=== PATIENT | male | born 1955 | race Caucasian/White ===

== ENCOUNTER 2019-11-22 14:15 | Emergency (ER) | payer OTHER, SELFPAY ==
[2019-11-22 14:24] VITALS: BP 181/80; PULSE 89; RESP 18; TEMP 36.8; O2SAT 95; BMI 32.8
--- NOTE | 2019-11-22 14:31 | CTR_ITS ---
PROCEDURE INFORMATION: Exam: CT Head Without Contrast Exam date and time: 11/22/2019 2:32 PM Age: 64 years old Clinical indication: Altered mental status/memory loss; Patient HX: States blacked out yesterday cannot remember it. - memory loss; Additional info: blacking out spells TECHNIQUE: Imaging protocol: Computed tomography of the head without contrast. Radiation optimization: All CT scans at this facility use at least one of these dose optimization techniques: automated exposure control; mA and/or kV adjustment per patient size (includes targeted exams where dose is matched to clinical indication); or iterative reconstruction. COMPARISON: No relevant prior studies available. RADIATION DOSE METRICS: Total DLP: 1163.95 mGy-cm FINDINGS: Brain: There is mild periventricular white matter lucency consistent with chronic microvascular disease. No acute infarct. No hemorrhage or extra-axial collection. Ventricles: There is no hydrocephalus. Bones/joints: Unremarkable. No acute fracture. Sinuses: Visualized sinuses are unremarkable. No fluid levels. Mastoid air cells: Visualized mastoid air cells are well aerated. Soft tissues: Unremarkable. CT/CT head wo con* [id number] IMPRESSION: 1. There is mild chronic microvascular disease. 2. No acute intracranial lesion or injury. Radiation Dose CTDIVOL = (mGy): DLP = 1163.95 (mGy-cm)
--- NOTE | 2019-11-22 14:31 | XRR_ITS ---
PROCEDURE INFORMATION: Exam: XR Chest, 1 View Exam date and time: 11/22/2019 3:30 PM Age: 64 years old Clinical indication: Cough; Additional info: Cough/congestion TECHNIQUE: Imaging protocol: XR of the chest Views: 1 view. COMPARISON: CR Ribs LEFT w PA Chest [id number] 04/04/2018 9:20 AM FINDINGS: Lungs: Unremarkable. No consolidation. Pleural space: Unremarkable. No pleural effusion. No pneumothorax. Heart/Mediastinum: Borderline to mild cardiomegaly. Vasculature: Calcification of the thoracic aorta and/or great vessels consistent with atherosclerotic vessel disease. Bones/joints: Moderate thoracic spondylosis. XR/XR chest 1V portable [id number] IMPRESSION: Borderline to mild cardiomegaly.
[2019-11-22 15:30] LABS: Basophils % 0.6 %; Eosinophils # 0.2 10^3/uL (0.0-0.8); Eosinophils % 4.5 %; Hematocrit 41.3 % (42.0-52.0); Hemoglobin 12.9 g/dL (11.7-16.6); Mean Corpuscular HGB Conc 31.2 g/dL (30.0-36.0); Mean Corpuscular Volume 83.3 fL (80-94); Mean Platelet Volume 10.1 fL (7.4-10.4); Monocytes # 0.5 10^3/uL (0.2-0.9); Monocytes % 10.2 %; Neutrophils # 3.2 10^3/uL (1.8-7.7); Neutrophils % 64.5 %; Nucleated Red Blood Cells % 0 %; Platelet Count 131 10^3/cmm (130-400); Red Blood Count 4.96 10^6/uL (4.1-5.3); Red Cell Distribution Width 14.4 % (12.1-15.1); White Blood Count 4.9 10^3/uL (4.0-10.0)
[2019-11-22 16:03] LABS: Alanine Aminotransferase 46 U/L (0-41); Albumin Level 4.5 g/dL (3.5-5.2); Alkaline Phosphatase 105 IU/L (40-130); Anion Gap 15.7 (5-19); Aspartate Amino Transferase 34 U/L (0-40); Blood Urea Nitrogen 10 mg/dL (8-23); Calcium 9.9 mg/dL (8.5-10.5); Carbon Dioxide 28 mmol/L (22-29); Chloride 101 mmol/L (98-107); Globulin 3.4 g/dL (1.3-4.6); Glomerular Filtration Rate 84.7 mL/min (90-130); Glucose 189 mg/dL (65-115); Osmolality Calculated 291 mOsm/kg (285-295); Potassium 4.7 mmol/L (3.5-5.1); Sodium 140 mmol/L (136-145); Total Bilirubin 0.4 mg/dL (0.15-1.2); Total Protein 7.9 g/dL (6.6-8.7)
--- NOTE | 2019-11-22 16:05 | W.ED.GENADLT ---
HPI - General Adult General: Chief complaint: General Medical Stated complaint: black out/ memory loss /agitated Time Seen by Provider: 11/22/19 15:36 History of Present Illness: HPI narrative: 64-year-old male comes in complaining of of what he describes as a blackout episode yesterday states he was unaware of anything going on for about 9 in the morning till 10 at night he suddenly became more of a conversation he was having on his . Denies drinking any alcohol at that time. He has had some memory issues related to viral hepatitis and cirrhosis that he has he has had some epigastric discomfort denies any vomiting or diarrhea no nausea no fever he has had increased urination but denies any polydipsia. He went through a course of Harvoni treatment for his hepatitis C and completed it. Denies any headache any difficulty speech swallowing or vision. Onset (ago): day(s) Associated symptoms: Deny chest pain, dyspnea, malaise, nausea, rash or vomiting Review of Systems Const: Denies: fever(s), chills, body aches, change in appetite, fatigue or malaise ENMT: Denies: throat pain, ear or mastoid pain, nasal discharge or nasal congestion Card: Denies: chest pain, edema, dyspnea on exertion or orthopnea Resp: Denies: dyspnea, productive cough or non-productive cough GI: Denies: abdominal pain, nausea, vomiting, hematemesis, coffee ground emesis, diarrhea, constipation, bloating, hematochezia or melena : Denies: flank pain, dysuria, urinary frequency or urinary urgency Skin/Breast: Denies: rash or pruritus PFSH ED PFSH: Social History Smoking and tobacco status: former smoker Physical Exam Const: COMMON NORMALS: no acute distress GENERAL APPEARANCE: cooperative and comfortable ORIENTATION/CONSCIOUSNESS: Yes awake, Yes oriented to person, Yes oriented to place and Yes oriented to time HENMT: COMMON NORMALS: normocephalic, atraumatic, hearing grossly normal bilaterally, external ears normal, EAC's normal, TM's normal bilaterally, Normal nasal mucous membranes and turbinates present, moist oral mucous membranes and oropharynx normal HEAD & SCALP: normocephalic and atraumatic NOSE: Normal nasal mucous membranes and turbinates present EXTERNAL EAR: Yes external ears normal EXTERNAL AUDITORY CANAL: EAC's normal TYMPANIC MEMBRANE: TM's normal bilaterally Eye: COMMON NORMALS: Equal, round and reactive pupils present, EOMs intact bilaterally, conjunctivae normal and no scleral icterus CONJUNCTIVA: Yes conjunctivae normal PUPIL: Yes Equal, round and reactive pupils present Neck/C-Spine: COMMON NORMALS: full ROM, no lymphadenopathy, supple and no JVD Lymph: LYMPHATIC: no lymphadenopathy noted and no lymphedema noted Resp: COMMON NORMALS: normal respiratory effort, No retractions, No use of accessory muscles and clear to auscultation bilaterally AUSCULTATION: clear to auscultation bilaterally Cardio: COMMON NORMALS: no JVD, regular rate, regular rhythm and No murmurs present (Cardio) RATE: regular rate RHYTHM: regular rhythm GI: COMMON NORMALS: Soft to palpation and No hepatosplenomegaly present AUSCULTATION: Yes normoactive bowel sounds PALPATION: Yes Soft to palpation, No Tenderness to palpation present (GI), No Guarding due to palpation present (GI) and Yes No hepatosplenomegaly present Extremity: COMMON NORMALS: normal to inspection, capillary refill normal, no clubbing, cyanosis or edema, no calf tenderness and no pedal edema Neuro: SENSORIUM/ORIENTATION: Yes oriented to person, Yes oriented to place and Yes oriented to time Skin: COMMON NORMALS: no rashes or lesions noted GENERAL SKIN EXAM: no rashes or lesions noted Course Vital Signs: Vital signs: Vital Signs Temperature 98.3 F 11/22/19 14:24 Pulse Rate 85 11/22/19 17:56 Respiratory Rate 18 11/22/19 17:56 Blood Pressure 151/101 11/22/19 17:56 Pulse Oximetry 93 11/22/19 17:56 MDM - General Adult MDM Narrative: Medical decision making narrative: Patient describes state which he function normally but he just cannot recall anything that happened. Organ to go ahead and discharge him home his head CT was negative remainder labs unremarkable set him up for outpatient referral to neurology. Lab Data: Labs: Lab Results 11/22/19 11/22/19 11/22/19 Range/Units :20 15:20 15:20 WBC 4.9 (4.0-10.0) 10^3/ uL RBC 4.96 (4.1-5.3) 10^6/u L Hgb 12.9 (11.7-16.6) g/dL Hct 41.3 L (42.0-52.0) % MCV 83.3 (80-94) fL MCH 26.0 L (28.0-34.0) pg MCHC 31.2 (30.0-36.0) g/dL RDW 14.4 (12.1-15.1) % Plt Count 131 (130-400) 10^3/c mm MPV 10.1 (7.4-10.4) fL Neut % (Auto) 64.5 % Lymph % (Auto) 20.0 % Erie % (Auto) 10.2 % Eos % (Auto) 4.5 % Baso % (Auto) 0.6 % Neut # (Auto) 3.2 (1.8-7.7) 10^3/u L Lymph # (Auto) 1.0 (0.8-4.8) 10^3/u L Erie # (Auto) 0.5 (0.2-0.9) 10^3/u L Eos # (Auto) 0.2 (0.0-0.8) 10^3/u L Baso # (Auto) 0.0 (0.0-0.1) 10^3/u L Nucleated RBC % (a uto) 0 % Nucleated RBCs # 0.0 /100WBC PT 13.20 (10.5-13.3) SECO NDS INR 0.98 (0.8-1.2) Sodium 140 (136-145) mmol/L Potassium 4.7 (3.5-5.1) mmol/L Chloride 101 (98-107) mmol/L Carbon Dioxide 28 (22-29) mmol/L Anion Gap 15.7 (5-19) BUN 10 (8-23) mg/dL Creatinine 0.9 (0.7-1.2) mg/dL GFR Calculation 84.7 L (90-130) mL/min Glucose 189 H (65-115) mg/dL Calculated Osmolal ity 291 (285-295) mOsm/k g Calcium 9.9 (8.5-10.5) mg/dL Total Bilirubin 0.4 (0.15-1.2) mg/dL AST 34 (0-40) U/L ALT 46 H (0-41) U/L Alkaline Phosphata se 105 (40-130) IU/L Ammonia (16-60) umol/L Total Protein 7.9 (6.6-8.7) g/dL Albumin 4.5 (3.5-5.2) g/dL Globulin 3.4 (1.3-4.6) g/dL 05/15/20 Range/Units 17:05 WBC (4.0-10.0) 10^3/ uL RBC (4.1-5.3) 10^6/u L Hgb (11.7-16.6) g/dL Hct (42.0-52.0) % MCV (80-94) fL MCH (28.0-34.0) pg MCHC (30.0-36.0) g/dL RDW (12.1-15.1) % Plt Count (130-400) 10^3/c mm MPV (7.4-10.4) fL Neut % (Auto) % Lymph % (Auto) % Erie % (Auto) % Eos % (Auto) % Baso % (Auto) % Neut # (Auto) (1.8-7.7) 10^3/u L Lymph # (Auto) (0.8-4.8) 10^3/u L Erie # (Auto) (0.2-0.9) 10^3/u L Eos # (Auto) (0.0-0.8) 10^3/u L Baso # (Auto) (0.0-0.1) 10^3/u L Nucleated RBC % (a uto) % Nucleated RBCs # /100WBC PT (10.5-13.3) SECO NDS INR (0.8-1.2) Sodium (136-145) mmol/L Potassium (3.5-5.1) mmol/L Chloride (98-107) mmol/L Carbon Dioxide (22-29) mmol/L Anion Gap (5-19) BUN (8-23) mg/dL Creatinine (0.7-1.2) mg/dL GFR Calculation (90-130) mL/min Glucose (65-115) mg/dL Calculated Osmolal ity (285-295) mOsm/k g Calcium (8.5-10.5) mg/dL Total Bilirubin (0.15-1.2) mg/dL AST (0-40) U/L ALT (0-41) U/L Alkaline Phosphata se (40-130) IU/L Ammonia 33 (16-60) umol/L Total Protein (6.6-8.7) g/dL Albumin (3.5-5.2) g/dL Globulin (1.3-4.6) g/dL Discharge Plan Discharge Patient Disposition: Home, Self-Care Clinical Impression: Dissociative fugue Condition: Stable Referrals: Víctor Coburn [Primary Care Provider] - Activity Restrictions/Additional Instructions: Case management will call for referral to neurology Discharge Date/Time: 11/22/19 17:56 Coding Level of Care Code 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
--- NOTE | 2019-11-22 16:10 | CTR_ITS ---
PROCEDURE INFORMATION: Exam: CT Abdomen And Pelvis With Contrast Exam date and time: 11/22/2019 4:45 PM Age: 64 years old Clinical indication: Abdominal pain; Epigastric; Patient HX: C/O upper abd pain TECHNIQUE: Imaging protocol: Computed tomography of the abdomen and pelvis with intravenous contrast. Radiation optimization: All CT scans at this facility use at least one of these dose optimization techniques: automated exposure control; mA and/or kV adjustment per patient size (includes targeted exams where dose is matched to clinical indication); or iterative reconstruction. Contrast material: OMNI 300; Contrast volume: 95 ml; Contrast route: 22G; COMPARISON: CR Hip 2-3v RIGHT wwo Pelv* [id number] 10/29/2014 4:20 PM RADIATION DOSE METRICS: Total DLP: 947.73 mGy-cm FINDINGS: Liver: Nodular liver suggesting cirrhosis. Gallbladder and bile ducts: Enlarged greater than or equal to 5.0 cm transverse diameter gallbladder consistent with gallbladder hydrops. Pancreas: Normal. No ductal dilation. Spleen: Cirrhosis with portal hypertension and moderate to large splenomegaly. One or more accessory splenules. 17.0 x 13.7 cm moderate to large splenomegaly. Adrenals: Normal. No mass. Kidneys and ureters: Normal. No hydronephrosis. Stomach and bowel: Unremarkable. No obstruction. No mucosal thickening. Appendix: Mildly enlarged 9 mm appendix without obvious inflammation. Intraperitoneal space: Unremarkable. No free air. No significant fluid collection. Vasculature: Severe calcified coronary artery disease. 17 mm portal vein suggesting possible portal hypertension. One or more calcified pelvic phleboliths. Lymph nodes: Unremarkable. No enlarged lymph nodes. Bladder: Unremarkable as visualized. Reproductive: Unremarkable as visualized. Bones/joints: Moderate multilevel spine degenerative changes including degenerative disc disease, spondylosis and facet degenerative changes. Soft tissues: Unremarkable. Other findings: Examination is limited by artifact from one or both arms by the patient's side. IMPRESSION: 1. Severe calcified coronary artery disease. 2. Enlarged greater than or equal to 5.0 cm transverse diameter gallbladder consistent with gallbladder hydrops. 3. Cirrhosis with portal hypertension and moderate to large splenomegaly. CT/CT abdomen pelvis w con* [id number] Impression. 4. Mildly enlarged 9 mm appendix without obvious inflammation. Radiation Dose CTDIVOL = (mGy): DLP = 947.73 (mGy-cm)
[2019-11-22] MEDS: iohexol 300 mg/mL 100 mL Btl IV (16:58)
[2019-11-22 17:09] LABS: INR 0.98 (0.8-1.2)
[2019-11-22 17:32] LABS: Ammonia 33 umol/L (16-60)
[2019-11-22 17:56] VITALS: BP 151/101; PULSE 85; RESP 18; O2SAT 93
--- NOTE | 2019-11-25 10:26 | DCPLANNER ---
manager exchange had message to schedule a follow up appointment for patient with neurology. manager exchange called the office of Dr. Ramirez, spoke with Kalee, a follow up appointment was scheduled for Monday, December 09, 2019 at 11:[address] Ramirez. Patient has [facility] insurance, adult protective caseworker called [facility] with [facility], and informed her that patient was seen in the ED and of the scheduled appointment. manager exchange faxed patients information to the [facility]. manager exchange called patient at [phone], there is was no answer, and unable to leave a voicemail for patient. manager exchange also called [phone] and left a voicemail for patient to return case finishing machine adjuster phone call.
--- NOTE | 2019-11-26 09:05 | DCPLANNER ---
Patient returned keycase assembler phone call, child welfare caseworker informed patient of the scheduled appointment.
--- NOTE | 2020-01-01 10:08 | DCPLANNER ---
e commerce manager called the office of Dr. Ramirez to confirm patient attended appointment. e commerce manager was told that patient was seeing provider in [place].
== END 2019-11-22 17:56 | disposition home or self-care (01) ==
PROVIDERS: Physician Assistant; Emergency Provider Family Medicine; PCP Internal Medicine
DX: F44.1 Dissociative fugue (principal); Z87.891 Personal history of nicotine dependence
CPT/HCPCS: 12345; 36415; 70450; 71045; 74177; 80053; 82140; 85025; 85610; 99281; 99283; Q9967

== ENCOUNTER → 2020-01-03 08:49 | Outpatient (BNVA) | payer OTHER, SELFPAY | PROVIDERS: PCP Internal Medicine; Referring Provider Family Medicine; Visit Provider Anesthesiology Pain Medicine | DX: M47.816 Spondylosis without myelopathy or radiculopathy, lumbar region (principal); M54.42 Lumbago with sciatica, left side; M54.16 Radiculopathy, lumbar region; M54.9 Dorsalgia, unspecified; M62.830 Muscle spasm of back; F17.220 Nicotine dependence, chewing tobacco, uncomplicated; Z79.891 Long term (current) use of opiate analgesic | CPT/HCPCS: 99203; 99204 ==

== ENCOUNTER → 2020-01-31 08:40 | Outpatient (BNVA) | payer OTHER, SELFPAY | PROVIDERS: PCP Family Medicine; Visit Provider Anesthesiology Pain Medicine | DX: M54.16 Radiculopathy, lumbar region (principal); M47.816 Spondylosis without myelopathy or radiculopathy, lumbar region; M54.9 Dorsalgia, unspecified; M62.830 Muscle spasm of back; F17.210 Nicotine dependence, cigarettes, uncomplicated | CPT/HCPCS: 99213 ==

== ENCOUNTER → 2020-02-17 10:33 | Outpatient (BNVA) | payer OTHER, SELFPAY | PROVIDERS: PCP Family Medicine; Visit Provider Anesthesiology Pain Medicine | DX: M47.816 Spondylosis without myelopathy or radiculopathy, lumbar region (principal); M54.16 Radiculopathy, lumbar region; M54.9 Dorsalgia, unspecified; M62.830 Muscle spasm of back; F17.220 Nicotine dependence, chewing tobacco, uncomplicated | CPT/HCPCS: 99213; 99214 ==

== ENCOUNTER → 2020-04-08 12:37 | Outpatient (BNVA) | payer OTHER, SELFPAY | PROVIDERS: PCP Family Medicine; Visit Provider Anesthesiology Pain Medicine | DX: M54.16 Radiculopathy, lumbar region (principal); M47.816 Spondylosis without myelopathy or radiculopathy, lumbar region; M54.9 Dorsalgia, unspecified | CPT/HCPCS: 64493; 64494; 64495; J3490 ==

== ENCOUNTER → 2020-04-23 10:43 | Outpatient (BNVA) | payer OTHER, SELFPAY | PROVIDERS: PCP Family Medicine; Visit Provider Anesthesiology Pain Medicine | DX: M47.816 Spondylosis without myelopathy or radiculopathy, lumbar region (principal); M54.16 Radiculopathy, lumbar region; M54.9 Dorsalgia, unspecified; M62.830 Muscle spasm of back; F17.220 Nicotine dependence, chewing tobacco, uncomplicated | CPT/HCPCS: 99213 ==

== ENCOUNTER → 2020-04-29 12:52 | Outpatient (BNVA) | payer OTHER, SELFPAY | PROVIDERS: PCP Family Medicine; Visit Provider Anesthesiology Pain Medicine | DX: M54.16 Radiculopathy, lumbar region (principal); M54.9 Dorsalgia, unspecified; F17.210 Nicotine dependence, cigarettes, uncomplicated | CPT/HCPCS: 64483; 64484; J1030; J3490 ==

== ENCOUNTER → 2020-05-26 09:50 | Outpatient (BNVA) | payer OTHER, SELFPAY | PROVIDERS: PCP Family Medicine; Visit Provider Anesthesiology Pain Medicine | DX: M54.9 Dorsalgia, unspecified (principal); M47.816 Spondylosis without myelopathy or radiculopathy, lumbar region; M54.16 Radiculopathy, lumbar region; M62.830 Muscle spasm of back; F17.220 Nicotine dependence, chewing tobacco, uncomplicated | CPT/HCPCS: 99213 ==

== ENCOUNTER → 2020-06-01 12:02 | Outpatient (BNVA) | payer OTHER, SELFPAY | PROVIDERS: PCP Family Medicine; Visit Provider Anesthesiology Pain Medicine | DX: M54.16 Radiculopathy, lumbar region (principal); M54.9 Dorsalgia, unspecified; F17.220 Nicotine dependence, chewing tobacco, uncomplicated | CPT/HCPCS: 64483; 64484; J1100; J3490 ==

== ENCOUNTER → 2020-06-16 10:37 | Outpatient (BNVA) | payer OTHER, SELFPAY | PROVIDERS: PCP Family Medicine; Visit Provider Anesthesiology Pain Medicine | DX: M54.9 Dorsalgia, unspecified (principal); M47.816 Spondylosis without myelopathy or radiculopathy, lumbar region; M54.16 Radiculopathy, lumbar region; M62.830 Muscle spasm of back; F17.200 Nicotine dependence, unspecified, uncomplicated | CPT/HCPCS: 99213 ==

== ENCOUNTER → 2020-06-29 13:53 | Outpatient (BNVA) | payer OTHER, SELFPAY | PROVIDERS: PCP Family Medicine; Visit Provider Anesthesiology Pain Medicine | DX: M47.816 Spondylosis without myelopathy or radiculopathy, lumbar region (principal); M54.9 Dorsalgia, unspecified | CPT/HCPCS: 64635; 64636; J1030 ==

== ENCOUNTER → 2020-07-07 12:41 | Outpatient (BNVA) | payer OTHER, SELFPAY | PROVIDERS: PCP Family Medicine; Visit Provider Anesthesiology Pain Medicine | DX: M47.816 Spondylosis without myelopathy or radiculopathy, lumbar region (principal); M54.9 Dorsalgia, unspecified | CPT/HCPCS: 64635; 64636; J1030 ==

== ENCOUNTER → 2020-07-22 13:24 | Outpatient (BNVA) | payer OTHER, SELFPAY | PROVIDERS: PCP Family Medicine; Visit Provider Anesthesiology Pain Medicine | DX: M47.816 Spondylosis without myelopathy or radiculopathy, lumbar region (principal); M54.16 Radiculopathy, lumbar region; M54.9 Dorsalgia, unspecified; M62.830 Muscle spasm of back; F17.210 Nicotine dependence, cigarettes, uncomplicated | CPT/HCPCS: 99213 ==

== ENCOUNTER 2020-07-26 21:54 | Emergency (ER) | payer OTHER, MEDICARE, SELFPAY ==
[2020-07-26 22:10] VITALS: BP 172/74; PULSE 98; RESP 18; TEMP 36.7; O2SAT 97; BMI 31.3
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
[2020-07-26] MEDS: morphine 4 mg/mL SDV 1 mL IM (23:21)
[2020-07-26 23:37] VITALS: BP 158/88; PULSE 74; RESP 18; O2SAT 96
== END 2020-07-26 23:39 | disposition home or self-care (01) ==
PROVIDERS: Emergency Provider Physician Assistant; PCP Family Medicine
DX: G89.29 Other chronic pain (principal); M54.5 Low back pain; Z79.82 Long term (current) use of aspirin; Z79.4 Long term (current) use of insulin; F17.210 Nicotine dependence, cigarettes, uncomplicated
CPT/HCPCS: 12345; 72100; 96372; 99281; 99283; J2270

== ENCOUNTER 2020-09-03 17:16 | Emergency (ER) | payer OTHER, MEDICARE, SELFPAY ==
[2020-09-03 17:54] VITALS: BP 151/95; PULSE 85; RESP 16; TEMP 36.3; O2SAT 96; BMI 29.7
--- NOTE | 2020-09-03 18:06 | ED_ITS ---
HPI - Recheck/Abnormal Lab/Rx General: Chief Complaint: Recheck/Abnormal Lab/Rx Stated Complaint: high blood sugar Time Seen by Provider: 09/03/20 18:01 Source: patient Mode of arrival: ambulatory Limitations: no limitations History of Present Illness: HPI narrative: 64-year-old male who has a history of diabetes. He states that he is been sick of taking shots with has not been taking his insulin for weeks. Patient was seen at his's office and had a blood sugar in the 700s and they sent him here. He has no medical complaints. He denies any vomiting or diarrhea and states he feels fine states that he is sick of taking his shots and just has not taken any insulin Review of Systems Const: Denies: fever(s), chills, body aches or change in appetite Eyes: Denies: blurry vision or eye discomfort ENMT: Denies: throat pain or dental pain Card: Denies: chest pain Resp: Denies: dyspnea GI: Denies: abdominal pain, nausea, vomiting or diarrhea : Denies: dysuria Musc: Denies: neck pain or back pain Skin/Breast: Denies: rash Neuro: Denies: headache(s) Psych: Denies: depression Anibal/Lymph: Denies: easy bruising All/Imm: Denies: urticaria PFSH ED PFSH: Social History Smoking and tobacco status: former smoker Alcohol intake: current Alcohol intake frequency: few times a month Substance/Drug Use: current Substance/Drug use frequency: daily Substance/Drug use type: Marijuana History of recent travel: No Physical Exam Const: COMMON NORMALS: no acute distress, patient oriented x3 and healthy appearing HENMT: COMMON NORMALS: normocephalic and atraumatic HEAD & SCALP: normocephalic and atraumatic Eye: COMMON NORMALS: Equal, round and reactive pupils present and EOMs intact bilaterally PUPIL: Yes Equal, round and reactive pupils present Neck/C-Spine: COMMON NORMALS: full ROM and supple Chest: COMMONS NORMALS: normal inspection of the chest and normal palpation of entire chest wall Resp: COMMON NORMALS: normal respiratory effort, No retractions, No use of accessory muscles and clear to auscultation bilaterally AUSCULTATION: clear to auscultation bilaterally Cardio: COMMON NORMALS: regular rate, regular rhythm and No murmurs present (Cardio) RATE: regular rate RHYTHM: regular rhythm GI: COMMON NORMALS: Normal to inspection, nondistended, normoactive bowel sounds present, Soft to palpation, non-tender and no masses PALPATION: Yes Soft to palpation Extremity: COMMON NORMALS: normal to inspection and full ROM Neuro: COMMON NORMALS: patient oriented x3, moves all extremities and no focal motor deficits Psych: COMMON NORMALS: mental status grossly normal, Normal thought process present and cooperative THOUGHT PROCESS: Normal thought process present Skin: COMMON NORMALS: no rashes or lesions noted and no wounds GENERAL SKIN EXAM: no rashes or lesions noted Course Vital Signs: Vital signs: Vital Signs Temperature 97.3 F L 09/03/20 17:54 Pulse Rate 76 09/03/20 19:28 Respiratory Rate 16 09/03/20 19:28 Blood Pressure 124/78 09/03/20 19:28 Pulse Oximetry 95 09/03/20 19:28 MDM - Recheck/Abnormal Lab/Rx MDM Narrative: Medical decision making narrative: Patient presents with hyperglycemia due to noncompliance. Patient's blood sugar is improved here and he is not in DKA. Patient is stable for discharge and is to follow-up his PCP in 2 to 4 days. I informed her is very important that he takes his medicines. Lab Data: Labs: Lab Results 09/03/20 09/03/20 09/03/20 Range/Units 18:13 18:15 18:16 WBC 6.0 (4.0-10.0) 10^3/ uL RBC 5.45 H (4.1-5.3) 10^6/u L Hgb 15.3 (11.7-16.6) g/dL Hct 45.3 (42.0-52.0) % MCV 83.1 (80-94) fL MCH 28.1 (28.0-34.0) pg MCHC 33.8 (30.0-36.0) g/dL RDW 12.9 (12.1-15.1) % Plt Count 156 (130-400) 10^3/c mm MPV 11.0 H (7.4-10.4) fL Neut % (Auto) 56.6 % Lymph % (Auto) 30.4 % [place] % (Auto) 7.6 % Eos % (Auto) 3.9 % Baso % (Auto) 0.8 % Neut # (Auto) 3.38 (1.8-7.7) 10^3/u L Lymph # (Auto) 1.8 (0.8-4.8) 10^3/u L [place] # (Auto) 0.5 (0.2-0.9) 10^3/u L Eos # (Auto) 0.2 (0.0-0.8) 10^3/u L Baso # (Auto) 0.1 (0.0-0.1) 10^3/u L Nucleated RBC % (a uto) 0 % Nucleated RBCs # 0.0 /100WBC Specimen Type Arterial Sample Site Radial, left ABG pH 7.40 (7.35-7.45) ABG pCO2 39.8 (35-45) mmHg ABG pO2 79.1 L (80.0-100.0) mmH g ABG HCO3 24.4 (22-26) mmol/L ABG Base Excess -0.4 (-2.0-2.0) mmol/ L Jabier Test Pos Hematocrit 48.3 (42-52) % O2 Delivery Device Room air Supervisor Contact And Service Clerks ID Jn Sodium (136-145) mmol/L Potassium (3.5-5.1) mmol/L Chloride (98-107) mmol/L Carbon Dioxide (22-29) mmol/L Anion Gap (5-19) BUN (8-23) mg/dL Creatinine (0.7-1.2) mg/dL GFR Calculation (90-130) mL/min Glucose (65-115) mg/dL POC Glucose 463 H (70-110) mg/dL Calculated Osmolal ity (285-295) mOsm/k g Calcium (8.5-10.5) mg/dL Total Bilirubin (0.15-1.2) mg/dL AST (0-40) U/L ALT (0-41) U/L Alkaline Phosphata se (40-130) IU/L Total Protein (6.6-8.7) g/dL Albumin (3.5-5.2) g/dL Globulin (1.3-4.6) g/dL 09/03/20 Range/Units 18:16 WBC (4.0-10.0) 10^3/ uL RBC (4.1-5.3) 10^6/u L Hgb (11.7-16.6) g/dL Hct (42.0-52.0) % MCV (80-94) fL MCH (28.0-34.0) pg MCHC (30.0-36.0) g/dL RDW (12.1-15.1) % Plt Count (130-400) 10^3/c mm MPV (7.4-10.4) fL Neut % (Auto) % Lymph % (Auto) % [place] % (Auto) % Eos % (Auto) % Baso % (Auto) % Neut # (Auto) (1.8-7.7) 10^3/u L Lymph # (Auto) (0.8-4.8) 10^3/u L [place] # (Auto) (0.2-0.9) 10^3/u L Eos # (Auto) (0.0-0.8) 10^3/u L Baso # (Auto) (0.0-0.1) 10^3/u L Nucleated RBC % (a uto) % Nucleated RBCs # /100WBC Specimen Type Sample Site ABG pH (7.35-7.45) ABG pCO2 (35-45) mmHg ABG pO2 (80.0-100.0) mmH g ABG HCO3 (22-26) mmol/L ABG Base Excess (-2.0-2.0) mmol/ L Jabier Test Hematocrit (42-52) % O2 Delivery Device Supervisor Contact And Service Clerks ID Sodium 131 L (136-145) mmol/L Potassium 4.4 (3.5-5.1) mmol/L Chloride 96 L (98-107) mmol/L Carbon Dioxide 21 L (22-29) mmol/L Anion Gap 18.4 (5-19) BUN 14 (8-23) mg/dL Creatinine 0.7 (0.7-1.2) mg/dL GFR Calculation 113.2 (90-130) mL/min Glucose 439 H (65-115) mg/dL POC Glucose (70-110) mg/dL Calculated Osmolal ity 291 (285-295) mOsm/k g Calcium 9.7 (8.5-10.5) mg/dL Total Bilirubin 0.4 (0.15-1.2) mg/dL AST 10 (0-40) U/L ALT 17 (0-41) U/L Alkaline Phosphata se 133 H (40-130) IU/L Total Protein 7.7 (6.6-8.7) g/dL Albumin 4.7 (3.5-5.2) g/dL Globulin 3.0 (1.3-4.6) g/dL Discharge Plan Discharge Patient Disposition: Home Clinical Impression: Hyperglycemia Condition: Stable Prescriptions: New Naprosyn 500 mg tablet 500 mg PO BID PRN (Reason: pain) Qty: 20 RF: 0 No Action lisinopril-hydrochlorothiazide 10-12.5 mg tablet 1 tab PO DAILY@0800 RF: 0 aspirin 81 mg tablet,chewable 81 mg PO DAILY@0800 RF: 0 insulin aspart U-100 [Novolog U-100 Insulin aspart] 100 unit/mL solution 20 unit SUBCUT TID RF: 0 fluticasone propionate [Allergy Relief (fluticasone)] 50 mcg/actuation spray,suspension 1 spray INTRANASAL DAILY PRN (Reason: UNKNOWN) RF: 0 multivitamin Tablet 1 tab PO DAILY@0800 RF: 0 Vitamin C 1 tab PO DAILY@0800 RF: 0 Vitamin D3 1 tab PO DAILY@0800 RF: 0 baclofen 10 mg tablet 10 mg PO TID@08,12,20 RF: 0 Discharge Orders: Discharge ED (Routine); Ordered 09/03/20 Ordered By: Alberto Gloria Referrals: Misty Bedoya MD [Primary Care Provider] - 1-3 days Discharge Diet: Advance as tolerated Discharge Activity: Resume usual activity Patient Instructions: Diabetic Hyperglycemia (ED) Coding Level of Care Code ED Firer Locomotive Crane for Chg Fwd Exam Comprehensive
[2020-09-03 18:19] LABS: Glucose Point of Care 463 mg/dL (70-110)
[2020-09-03 18:24] LABS: ABG PCO2 39.8 mmHg (35-45); Arterial Blood Gas Hematocrit 48.3 % (42-52); Base Excess ABG -0.4 mmol/L (-2.0-2.0); Blood Gas Allen Test Pos; Blood Gas Sample Site Radial, left; Blood Gas Sample Type Arterial; HCO3 ABG 24.4 mmol/L (22-26); Oxygen Device ROOM AIR; PO2 ABG 79.1 mmHg (80.0-100.0)
[2020-09-03 18:25] LABS: Basophils # 0.1 10^3/uL (0.0-0.1); Basophils % 0.8 %; Eosinophils # 0.2 10^3/uL (0.0-0.8); Eosinophils % 3.9 %; Hematocrit 45.3 % (42.0-52.0); Hemoglobin 15.3 g/dL (11.7-16.6); Lymphocytes # 1.8 10^3/uL (0.8-4.8); Lymphocytes % 30.4 %; Mean Corpuscular HGB Conc 33.8 g/dL (30.0-36.0); Mean Corpuscular Hemoglobin 28.1 pg (28.0-34.0); Mean Corpuscular Volume 83.1 fL (80-94); Monocytes # 0.5 10^3/uL (0.2-0.9); Monocytes % 7.6 %; Neutrophils # 3.38 10^3/uL (1.8-7.7); Neutrophils % 56.6 %; Nucleated Red Blood Cells % 0 %; Platelet Count 156 10^3/cmm (130-400); Red Blood Count 5.45 10^6/uL (4.1-5.3); Red Cell Distribution Width 12.9 % (12.1-15.1)
[2020-09-03] MEDS: sodium chloride 0.9% 1,000 ML 999 ML IV ×2 (18:52→19:34)
[2020-09-03] MEDS: insulin regular-human 5 UNIT in SYRINGE 1 EACH IVP (18:55)
[2020-09-03 19:18] LABS: Alanine Aminotransferase 17 U/L (0-41); Albumin Level 4.7 g/dL (3.5-5.2); Alkaline Phosphatase 133 IU/L (40-130); Anion Gap 18.4 (5-19); Aspartate Amino Transferase 10 U/L (0-40); Blood Urea Nitrogen 14 mg/dL (8-23); Calcium 9.7 mg/dL (8.5-10.5); Carbon Dioxide 21 mmol/L (22-29); Chloride 96 mmol/L (98-107); Glomerular Filtration Rate 113.2 mL/min (90-130); Glucose 439 mg/dL (65-115); Osmolality Calculated 291 mOsm/kg (285-295); Potassium 4.4 mmol/L (3.5-5.1); Sodium 131 mmol/L (136-145); Total Bilirubin 0.4 mg/dL (0.15-1.2); Total Protein 7.7 g/dL (6.6-8.7)
[2020-09-03 19:28] VITALS: BP 124/78; PULSE 76; RESP 16; O2SAT 95
[2020-09-03 20:18] LABS: Glucose Point of Care 338 mg/dL (70-110)
--- NOTE | 2020-09-03 20:24 | PC.NURSE ---
Patient blood glucose is 333, nurse was informed.
[2020-09-03 20:26] LABS: Glucose Point of Care 333 mg/dL (70-110)
[2020-09-03 20:42] VITALS: BP 133/77; PULSE 84; RESP 17; TEMP 36.6; O2SAT 97
== END 2020-09-03 20:42 | disposition home or self-care (01) ==
PROVIDERS: Emergency Provider Emergency Medicine; PCP Family Medicine
DX: E11.65 Type 2 diabetes mellitus with hyperglycemia (principal); Z79.82 Long term (current) use of aspirin; Z79.4 Long term (current) use of insulin; Z87.891 Personal history of nicotine dependence
CPT/HCPCS: 36416; 36600; 80053; 82803; 82962; 85025; 96361; 96374; 99283; J1815; J7030

== ENCOUNTER 2021-02-03 00:26 | Emergency (ER) | payer OTHER, MEDICARE, SELFPAY ==
[2021-02-03 00:36] VITALS: BP 175/90; PULSE 80; RESP 16; TEMP 36.7; O2SAT 96; BMI 33.2
--- NOTE | 2021-02-03 02:34 | ED_ITS ---
HPI - Abdominal Pain General: Chief Complaint: Abdominal Pain Stated Complaint: Rt Upper ABD Pain Time Seen by Provider: 02/03/21 02:04 Source: patient Mode of arrival: ambulatory Limitations: no limitations History of Present Illness: HPI narrative: 65-year-old male states over the last 2 weeks he been having right upper quadrant abdominal pain. He states its been sharp in nature and states that it seems to be after food. He states he is worried it could be his gallbladder. States pain currently is a 3 out of 10. He said no fevers. Denies any vomiting diarrhea. MD elicited complaint: abdominal pain Associated Symptoms: Denies chills, dysuria and fever(s) Review of Systems Const: Denies: fever(s), chills, body aches or change in appetite Eyes: Denies: blurry vision or eye discomfort ENMT: Denies: throat pain or dental pain Card: Denies: chest pain Resp: Denies: dyspnea GI: Reports: abdominal pain : Denies: dysuria Musc: Denies: neck pain or back pain Skin/Breast: Denies: rash Neuro: Denies: headache(s) Psych: Denies: depression Anibal/Lymph: Denies: easy bruising All/Imm: Denies: urticaria PFSH ED PFSH: Social History Smoking and tobacco status: former smoker Alcohol intake: current Alcohol intake frequency: few times a month History of recent travel: No Physical Exam Const: COMMON NORMALS: no acute distress, patient oriented x3 and healthy appearing HENMT: COMMON NORMALS: normocephalic and atraumatic HEAD & SCALP: normocephalic and atraumatic Eye: COMMON NORMALS: Equal, round and reactive pupils present and EOMs intact bilaterally PUPIL: Yes Equal, round and reactive pupils present Neck/C-Spine: COMMON NORMALS: full ROM and supple Chest: COMMONS NORMALS: normal inspection of the chest and normal palpation of entire chest wall Resp: COMMON NORMALS: normal respiratory effort, No retractions, No use of accessory muscles and clear to auscultation bilaterally AUSCULTATION: clear to auscultation bilaterally Cardio: COMMON NORMALS: regular rate, regular rhythm and No murmurs present (Cardio) RATE: regular rate RHYTHM: regular rhythm GI: COMMON NORMALS: Normal to inspection, nondistended, normoactive bowel sounds present, Soft to palpation, non-tender and no masses PALPATION: Yes Soft to palpation Extremity: COMMON NORMALS: normal to inspection and full ROM Neuro: COMMON NORMALS: patient oriented x3, moves all extremities and no focal motor deficits Psych: COMMON NORMALS: mental status grossly normal, Normal thought process present and cooperative THOUGHT PROCESS: Normal thought process present Skin: COMMON NORMALS: no rashes or lesions noted and no wounds GENERAL SKIN EXAM: no rashes or lesions noted Course Vital Signs: Vital signs: Vital Signs Temperature 98.1 F 02/03/21 00:36 Pulse Rate 76 02/03/21 03:26 Respiratory Rate 18 02/03/21 03:26 Blood Pressure 162/97 02/03/21 03:26 Pulse Oximetry 96 02/03/21 03:26 MDM - Abdominal Pain MDM Narrative: Medical decision making narrative: Patient presents with abdominal pain. CT shows pancreatitis. Is lipase here is mildly elevated. His pain is not severe in nature. Informed him to do a all liquid diet we will place him on pain meds and he is to follow-up with general surgery. He is return to ER if worsening. He understands and agrees the plan. Lab Data: Labs: Lab Results 02/03/21 02/03/21 Range/Units 03:28 03:28 WBC 9.9 (4.0-10.0) 10^3/ uL RBC 5.47 H (4.1-5.3) 10^6/u L Hgb 15.2 (11.7-16.6) g/dL Hct 45.8 (42.0-52.0) % MCV 83.7 (80-94) fL MCH 27.8 L (28.0-34.0) pg MCHC 33.2 (30.0-36.0) g/dL RDW 12.8 (12.1-15.1) % Plt Count 237 (130-400) 10^3/c mm MPV 10.3 (7.4-10.4) fL Neut % (Auto) 68.2 % Lymph % (Auto) 22.2 % [place] % (Auto) 6.3 % Eos % (Auto) 2.5 % Baso % (Auto) 0.5 % Neut # (Auto) 6.75 (1.8-7.7) 10^3/u L Lymph # (Auto) 2.2 (0.8-4.8) 10^3/u L [place] # (Auto) 0.6 (0.2-0.9) 10^3/u L Eos # (Auto) 0.3 (0.0-0.8) 10^3/u L Baso # (Auto) 0.1 (0.0-0.1) 10^3/u L Nucleated RBC % (a uto) 0 % Nucleated RBCs # 0.0 /100WBC Sodium 140 (136-145) mmol/L Potassium 4.1 (3.5-5.1) mmol/L Chloride 105 (98-107) mmol/L Carbon Dioxide 25 (22-29) mmol/L Anion Gap 14.1 (5-19) BUN 17 (8-23) mg/dL Creatinine 0.9 (0.7-1.2) mg/dL GFR Calculation 84.4 L (90-130) mL/min Glucose 211 H (65-115) mg/dL Calculated Osmolal ity 298 H (285-295) mOsm/k g Calcium 8.4 L (8.5-10.5) mg/dL Total Bilirubin 0.4 (0.15-1.2) mg/dL AST 12 (0-40) U/L ALT 20 (0-41) U/L Alkaline Phosphata se 80 (40-130) IU/L Total Protein 6.6 (6.6-8.7) g/dL Albumin 4.3 (3.5-5.2) g/dL Globulin 2.3 (1.3-4.6) g/dL Lipase 118 H (13-60) U/L Discharge Plan Discharge Patient Disposition: Home Clinical Impression: Pancreatitis Qualifiers: Chronicity: acute Pancreatitis type: unspecified pancreatitis type Acute pancreatitis complication: unspecified Qualified Code(s): K85.90 - Acute pancreatitis without necrosis or infection, unspecified Abdominal pain Qualifiers: Abdominal location: unspecified location Qualified Code(s): R10.9 - Unspecified abdominal pain Condition: Stable Prescriptions: New hydrocodone-acetaminophen 5-325 mg tablet 1 tab PO Q6H PRN (Reason: pain) Qty: 14 RF: 0 ondansetron 4 mg tablet,disintegrating 4 mg PO Q6H PRN (Reason: nausea and vomiting) Qty: 14 RF: 0 No Action lisinopril-hydrochlorothiazide 10-12.5 mg tablet 1 tab PO DAILY@0800 RF: 0 aspirin 81 mg tablet,chewable 81 mg PO DAILY@0800 RF: 0 insulin aspart U-100 [Novolog U-100 Insulin aspart] 100 unit/mL solution 20 unit SUBCUT TID RF: 0 fluticasone propionate [Allergy Relief (fluticasone)] 50 mcg/actuation spray,suspension 1 spray INTRANASAL DAILY PRN (Reason: UNKNOWN) RF: 0 multivitamin Tablet 1 tab PO DAILY@0800 RF: 0 Vitamin C 1 tab PO DAILY@0800 RF: 0 Vitamin D3 1 tab PO DAILY@0800 RF: 0 baclofen 10 mg tablet 10 mg PO TID@08,12,20 RF: 0 Naprosyn 500 mg tablet 500 mg PO BID PRN (Reason: pain) Qty: 20 RF: 0 Discharge Orders: Discharge ED (Routine); Ordered 02/03/21 Ordered By: Alberto Gloria Referrals: Ryan Ayon MD [Physician] - 1-3 days Misty Bedoya MD [Primary Care Provider] - Discharge Diet: Advance as tolerated Discharge Activity: Resume usual activity Patient Instructions: Pancreatitis (ED), Opioid Safety Coding Level of Care Code ED Assistant Professor Of Mathematics for Chg Fwd Exam Comprehensive
--- NOTE | 2021-02-03 02:49 | CTR_ITS ---
PROCEDURE INFORMATION: Exam: CT Abdomen And Pelvis With Contrast Exam date and time: 02/03/2021 2:49 AM Age: 65 years old Clinical indication: Abdominal pain; Localized; Right upper quadrant (ruq); Patient HX: Ruq pain; Additional info: Abd pain TECHNIQUE: Imaging protocol: Computed tomography of the abdomen and pelvis with contrast. Radiation optimization: All CT scans at this facility use at least one of these dose optimization techniques: automated exposure control; mA and/or kV adjustment per patient size (includes targeted exams where dose is matched to clinical indication); or iterative reconstruction. Contrast material: OMNI 300; Contrast volume: 95 ml; Contrast route: INTRAVENOUS (IV); COMPARISON: CT abdomen pelvis w con* [id number] 11/22/2019 4:53 PM RADIATION DOSE METRICS: Total DLP (mGy-cm): 1700.54 FINDINGS: Lungs: The lung bases are clear. No effusion Liver: There is cirrhotic morphology of the liver. Gallbladder and bile ducts: No wall thickening, pericholecystic fluid or stones. Pancreas: There is mild pancreatic edema and peripancreatic fat stranding. Normal enhancement. Spleen: Normal. No splenomegaly. Adrenal glands: Normal. No mass. Kidneys and ureters: Normal. No hydronephrosis. Stomach and bowel: There are few loops of gas and fluid-filled small bowel with a balanced amount of gas and fluid in the colon. Appendix: No evidence of appendicitis. Intraperitoneal space: Unremarkable. No free air. No significant fluid collection. Vasculature: Mild atherosclerotic disease of the aorta without aneurysm. Lymph nodes: Unremarkable. No enlarged lymph nodes. Urinary bladder: Unremarkable as visualized. Reproductive: Unremarkable as visualized. Bones/joints: Unremarkable. No acute fracture. Soft tissues: Unremarkable. CT/CT abdomen pelvis w con* [id number] IMPRESSION: 1. Acute pancreatitis. 2. Ileus. 3. Cirrhosis. 4. Mild atherosclerotic disease of the aorta without aneurysm. Radiation Dose CTDIVOL = (mGy): DLP = 1700.54 (mGy-cm)
[2021-02-03] MEDS: ondansetron 2 mg/ML SDV 2 mL 4 MG IVP (03:14)
[2021-02-03] MEDS: morphine 4 mg/mL SDV 1 mL IVP (03:15)
[2021-02-03 03:26] VITALS: BP 162/97; PULSE 76; RESP 18; O2SAT 96
[2021-02-03 03:37] LABS: Basophils # 0.1 10^3/uL (0.0-0.1); Basophils % 0.5 %; Eosinophils # 0.3 10^3/uL (0.0-0.8); Eosinophils % 2.5 %; Hematocrit 45.8 % (42.0-52.0); Hemoglobin 15.2 g/dL (11.7-16.6); Lymphocytes # 2.2 10^3/uL (0.8-4.8); Lymphocytes % 22.2 %; Mean Corpuscular HGB Conc 33.2 g/dL (30.0-36.0); Mean Corpuscular Hemoglobin 27.8 pg (28.0-34.0); Mean Corpuscular Volume 83.7 fL (80-94); Mean Platelet Volume 10.3 fL (7.4-10.4); Monocytes # 0.6 10^3/uL (0.2-0.9); Monocytes % 6.3 %; Neutrophils # 6.75 10^3/uL (1.8-7.7); Neutrophils % 68.2 %; Nucleated Red Blood Cells % 0 %; Platelet Count 237 10^3/cmm (130-400); Red Blood Count 5.47 10^6/uL (4.1-5.3); Red Cell Distribution Width 12.8 % (12.1-15.1); White Blood Count 9.9 10^3/uL (4.0-10.0)
[2021-02-03] MEDS: iohexol 300 mg/mL 100 mL Btl IV (03:49)
[2021-02-03 03:57] LABS: Alanine Aminotransferase 20 U/L (0-41); Albumin Level 4.3 g/dL (3.5-5.2); Alkaline Phosphatase 80 IU/L (40-130); Anion Gap 14.1 (5-19); Aspartate Amino Transferase 12 U/L (0-40); Blood Urea Nitrogen 17 mg/dL (8-23); Calcium 8.4 mg/dL (8.5-10.5); Carbon Dioxide 25 mmol/L (22-29); Chloride 105 mmol/L (98-107); Globulin 2.3 g/dL (1.3-4.6); Glomerular Filtration Rate 84.4 mL/min (90-130); Glucose 211 mg/dL (65-115); Lipase 118 U/L (13-60); Osmolality Calculated 298 mOsm/kg (285-295); Potassium 4.1 mmol/L (3.5-5.1); Sodium 140 mmol/L (136-145); Total Bilirubin 0.4 mg/dL (0.15-1.2); Total Protein 6.6 g/dL (6.6-8.7)
[2021-02-03 05:45] VITALS: BP 163/83; PULSE 73; RESP 19; O2SAT 96
--- NOTE | 2021-02-03 09:39 | DCPLANNER ---
data architect manager had message to schedule a follow up appointment for patient with Dr. Ayon. Dr. Lambert office is not in [facility] with [facility], case management director called patient, he stated that he wanted to use his [facility] insurance, case management director will refer patient to [facility] General Surgery. data architect manager emailed patients information to Ke at [facility] General Surgery. Patients information will be printed and reviewed. Clinic will call patient with appointment information. data architect manager also emailed patients information to Yaritza with [facility] so that the authorization process could be started.
--- NOTE | 2021-02-09 13:43 | DCPLANNER ---
Patient has a follow up appointment scheduled for Monday, February 15, 2021 at 8:[address] Vides at general surgery. Clinic will call patient with appointment information.
--- NOTE | 2021-02-17 07:58 | DCPLANNER ---
Patient had a follow up appointment scheduled for 02.15.21 with general surgery - patient did attend appointment.
== END 2021-02-03 05:45 | disposition home or self-care (01) ==
PROVIDERS: Emergency Provider Emergency Medicine; PCP Family Medicine
DX: K85.90 Acute pancreatitis without necrosis or infection, unspecified (principal); Z87.891 Personal history of nicotine dependence
CPT/HCPCS: 74177; 80053; 83690; 85025; 96374; 96375; 99283; J2270; J2405; Q9967

== ENCOUNTER → 2021-03-12 08:54 | Outpatient (BNVA) | payer OTHER, SELFPAY | PROVIDERS: PCP Family Medicine; Visit Provider Anesthesiology Pain Medicine | DX: M54.16 Radiculopathy, lumbar region (principal); M47.816 Spondylosis without myelopathy or radiculopathy, lumbar region; M62.830 Muscle spasm of back; M79.604 Pain in right leg | CPT/HCPCS: 99214 ==

== ENCOUNTER → 2021-04-09 09:47 | Outpatient (BNVA) | payer OTHER, SELFPAY | PROVIDERS: PCP Family Medicine; Visit Provider Surgery | DX: Z01.812 Encounter for preprocedural laboratory examination (principal); Z20.822 Contact with and (suspected) exposure to COVID-19 | CPT/HCPCS: 87635 ==

== ENCOUNTER 2021-04-15 07:58 | Day surgery (SDC) | payer OTHER, SELFPAY ==
[2021-04-14 13:01] VITALS: BMI 28.1
--- NOTE | 2021-04-15 08:13 | ANES.PREANE2 ---
Pre-Anesthetic Assessment Pre-Anesthetic Assessment: Height/Weight: Height 1.7 m Weight 81.647 kg Preop Diagnosis: screening colonoscopy Proposed Procedure: Operation Date: 04/15/21 09:00 Proposed Procedures p Colonoscopy 84242 K63.5(Not Applicable) - Cristóbal Vides MD Was Beta Tom taken within 24 hours: N/A Was Clonidine taken within 24 hours: N/A Social: Social History: No alcohol and No tobacco Exam: Pre-Anes Outpt Exam: alert, oriented x 3, clear to auscultation bilaterally and regular rate & rhythm Airway: Submandibular: WNL Cervical ROM: WNL MP: 2 Dentition: False CV/HEM: CV/HEM: Arrythmia and HTN Metabolic: Metabolic: DM, Hyperlipidemia and Morbid obesity Musc/skel: Musc/skel: Lower Back Pain Anesthetic Plan: ASA status: 3 Anesthesia: MAC Risk of > 500 ml blood loss (7ml/kg in children): No PFSH Anesthesia PFSH: Medical History 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 Colon polyps Diabetes mellitus Hx of glaucoma Hypertension Surgical History H/O esophagogastroduodenoscopy History of cataract extraction History of colonoscopy History of hand surgery Social History Alcohol intake: current Alcohol intake frequency: few times a month History of recent travel: No Data Anesthesia Cardiac Studies: No Data to Display
[2021-04-15 08:32] VITALS: BP 135/70; PULSE 80; RESP 18; TEMP 36.8; O2SAT 95
[2021-04-15] MEDS: sodium chloride 0.9% 1,000 ML 30 ML IV (08:38)
[2021-04-15 08:44] LABS: Glucose Point of Care 224 mg/dL (70-110)
--- NOTE | 2021-04-15 09:22 | W.PM.OPSFHP ---
Same Day Surgery H&P Indication for Procedure/HPI DATE OF PROCEDURE: April 15, 2021 CHIEF COMPLAINT/INDICATIONFOR SURGICAL PROCEDURE: colonoscopy PREOP DIAGNOSIS: screening colonoscopy PLANNED PROCEDRUE: Operation Date: 04/15/21 09:00 Proposed Procedures p Colonoscopy 00845 K63.5(Not Applicable) - Cristóbal Vides MD Medications/Allergies* Home Medications Medication Instructions Recorded Confirmed Type insulin aspart U-100 100 unit/mL 2 - 3 unit SUBCUT TID 01/03/20 04/15/21 History subcutaneous solution fluticasone propionate 50 1 spray INTRANASAL DAILY PRN 04/23/20 04/15/21 History mcg/actuation nasal spray,suspension aspirin 81 mg chewable tablet 81 mg PO DAILY@0800 06/16/20 04/15/21 History lisinopril 10 1 tab PO DAILY@0800 06/16/20 04/15/21 History mg-hydrochlorothiazide 12.5 mg tablet Vitamin C 1 tab PO DAILY@0800 09/03/20 04/15/21 History Vitamin D3 1 tab PO DAILY@0800 09/03/20 04/15/21 History baclofen 10 mg PO TID@,, PRN 09/03/20 04/15/21 History multivitamin 1 tab PO DAILY@0800 09/03/20 04/15/21 History insulin detemir U-100 100 unit/mL 100 unit SUBCUT DAILY 03/12/21 04/15/21 History (3 mL) subcutaneous pen prednisolone acetate 1 drp OPHTHALMIC (EYE) TID PRN 04/14/21 04/15/21 History Allergies/Adverse Reactions Allergy/AdvReac Type Severity Reaction Status Date / Time erythromycin base Allergy Unknown Verified 03/12/21 09:27 Current Medications: Generic Name Dose Route Start Last Admin Trade Name Freq PRN Reason Stop Dose Admin Sodium Chloride 1,000 mls @ 30 mls/hr 04/15/21 08:15 04/15/21 08:38 Sodium Chloride 0.9% IV 04/16/21 08:14 30 mls/hr .Q24H SCOTTIE Administration Pertinent History/Comorbid Conditions* Medical History (Updated 02/15/21 @ 08:59 by Cristóbal Vides MD) 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 Colon polyps Diabetes mellitus Hx of glaucoma Hypertension Surgical History (Updated 02/15/21 @ 09:02 by Cristóbal Vides MD) H/O esophagogastroduodenoscopy History of cataract extraction History of colonoscopy History of hand surgery Social History Alcohol intake: current Alcohol intake frequency: few times a month History of recent travel: No Pertinent Exam Findings alert, oriented x 3 and regular rate & rhythm Recommendations Surgery/Procedure today Coding Level of Care Code Acute Poultry Veterinarian for Urszula Krueger
[2021-04-15 09:59] VITALS: BP 127/68; PULSE 77; RESP 18; TEMP 36.3; O2SAT 96
--- NOTE | 2021-04-15 10:00 | ANE.PACU2 ---
Inpatient post-anesthesia follow up: Airway intact: Yes Vital signs: Temperature 97.4 F Pulse Rate 77 Respiratory Rate 18 Blood Pressure 127/68 Pulse Oximetry 96 Oxygen Delivery Me thod Room Air Oxygen Flow Rate Fraction of Inspir ed Oxygen Hydration adequate: Yes Nausea and vomiting: No Pain level: 1 Mental status: Baseline
[2021-04-15 10:08] VITALS: BP 144/84; PULSE 74; RESP 18; O2SAT 95
== END 2021-04-15 10:20 | disposition home or self-care (01) ==
PROVIDERS: PCP Family Medicine; Visit Provider Surgery
PROC: 0DJD8ZZ Inspection of Lower Intestinal Tract, Via Natural or Artificial Opening Endoscopic (ICD-10-PCS; CPT 45378; principal; 2021-04-15 09:00)
DX: Z12.11 Encounter for screening for malignant neoplasm of colon (principal); D12.5 Benign neoplasm of sigmoid colon; K64.8 Other hemorrhoids; Z86.19 Personal history of other infectious and parasitic diseases; E11.9 Type 2 diabetes mellitus without complications; Z79.4 Long term (current) use of insulin; I10 Essential (primary) hypertension; E78.5 Hyperlipidemia, unspecified
CPT/HCPCS: 36416; 45380; 82962; 88305; 96360; 96361; J2704; J7030

== ENCOUNTER 2021-04-22 10:48 | Outpatient (CLI) | payer OTHER, SELFPAY ==
--- NOTE | 2021-04-22 11:00 | CT_ITS ---
WS: [id number] CT LUMBAR SPINE TECHNIQUE: Noncontrast CT of the lumbar spine with coronal and sagittal reformatted images. CLINICAL INFORMATION: M54.16 - Radiculopathy, lumbar region COMPARISON: None. DLP: 1934.[address] scans at [facility] use at least one of these dose optimization techniques: automated e xposure control; mA and/or kV adjustment per patient size (includes targeted exams where dose is matc hed to clinical indication); or iterative reconstruction. FINDINGS: Normal lumbar alignment. No acute compression. Trace anterolisthesis L5 on S1. No high-grade central canal stenosis. Disc space calcification L1-L2. L1-L2: No significant disc bulging. Spinal canal and foramen are patent. Mild facet arthropathy. L2-L3: No significant disc bulging. Spinal canal and foramen are patent. Mild facet arthropathy. L3-L4: Minimal annular bulging. Slight effacement of the ventral thecal sac. Moderate facet arthropat hy. Spinal canal and foramen are patent. L4-L5: Mild annular bulging with slight effacement of ventral thecal sac. Slight narrowing of the sub articular recess bilaterally. Foramen are patent. Moderate facet arthropathy. L5-S1: Slight anterolisthesis L5 on S1. Mild disc bulging with impingement on the right subarticular recess and traversing right S1 nerve root. Mild right and no significant left foraminal narrowing. Mo derate to advanced facet arthropathy. Advanced degenerative arthritis right sacroiliac joint with periarticular sclerosis and erosions. Rec ommend correlation with history of sacroiliitis. Left sacroiliac joint is more normal in appearance. CT/CT lumbar spine wo con* [id number] IMPRESSION: 1. Mild lumbar curve. No acute compression. No high-grade central canal stenos is. Trace anterolisthesis L5 on S1. 2. Annular bulging L5-S1 with impingement on the right subarticular recess and traversing right S1 nerve root. Correlation for right S1 nerve root symptoms. Mild right L5-S1 foraminal narrowing. 3. Minimal annular bulging L4-5. 4. Moderate to advanced facet arthropathy L4-L5 and L5-S1 worse at left L5-S1. 5. Changes of chronic appearing right sacroiliitis with periarticular sclerosi s and erosions. This is unchanged since the CT abdomen pelvis November 22, 2019.
== END 2021-04-22 10:49 | disposition home or self-care (01) ==
PROVIDERS: PCP Family Medicine; Visit Provider Anesthesiology Pain Medicine
DX: M54.16 Radiculopathy, lumbar region (principal); M51.27 Other intervertebral disc displacement, lumbosacral region
CPT/HCPCS: 72131

== ENCOUNTER → 2021-05-11 14:12 | Outpatient (BNVA) | payer OTHER, SELFPAY | PROVIDERS: PCP Family Medicine; Visit Provider Anesthesiology Pain Medicine | DX: Z01.812 Encounter for preprocedural laboratory examination (principal); E11.9 Type 2 diabetes mellitus without complications; M54.16 Radiculopathy, lumbar region | CPT/HCPCS: 36416; 64483; 64484; 82962; J1100; J3490 ==

== ENCOUNTER → 2021-05-25 10:34 | Outpatient (BNVA) | payer OTHER, SELFPAY | PROVIDERS: PCP Family Medicine; Visit Provider Anesthesiology Pain Medicine | DX: M47.816 Spondylosis without myelopathy or radiculopathy, lumbar region (principal); M54.16 Radiculopathy, lumbar region; M62.830 Muscle spasm of back; Z87.891 Personal history of nicotine dependence | CPT/HCPCS: 99212 ==

== ENCOUNTER 2021-06-09 07:27 | Outpatient (CLI) | payer OTHER, SELFPAY ==
--- NOTE | 2021-06-09 08:00 | US_ITS ---
WS: [id number] ULTRASOUND ABDOMEN LIMITED CLINICAL INFORMATION: K85.90 - Acute pancreatitis without necrosis or infection... COMPARISON: None. FINDINGS: Liver Size: Normal. Craniocaudal length: 15.4 cm. Echogenicity: Coarse Surface nodularity: Cirrhotic Mass (size and location): None. Bile ducts Intrahepatic ducts: Normal. Common bile duct diameter: 0.3 cm. Gallbladder Normal. Gallstones: None. Gallbladder sludge: None. Gallbladder wall thickening: None. Pericholecystic fluid: None. Sonographic Davis sign: Absent. Pancreas Enlarged echogenic pancreas compatible with known pancreatitis. Right kidney: Normal. Hydronephrosis: None. Size: 9.8 cm x 5.7 cm x 4.9 cm. Abdominal aorta and IVC Visualized portions are normal. Ascites: None. US/US gall bladder 67165 IMPRESSION: 1. Coarse cirrhotic liver. 2. Normal gallbladder. 3. No hydronephrosis in right kidney. 4. Prominent echogenic pancreas compatible with known pancreatitis. Recommend correlation with pancreatic enzymes. No visualized fluid collections.
== END 2021-06-09 07:28 | disposition home or self-care (01) ==
LOC: RAD 07:29
PROVIDERS: PCP Family Medicine; Visit Provider Surgery
DX: K85.90 Acute pancreatitis without necrosis or infection, unspecified (principal); K74.60 Unspecified cirrhosis of liver
CPT/HCPCS: 76705

== ENCOUNTER → 2021-07-20 11:01 | Outpatient (BNVA) | payer OTHER, SELFPAY | PROVIDERS: PCP Family Medicine; Visit Provider Anesthesiology Pain Medicine | DX: M48.062 Spinal stenosis, lumbar region with neurogenic claudication (principal); M47.816 Spondylosis without myelopathy or radiculopathy, lumbar region; M54.16 Radiculopathy, lumbar region; M79.605 Pain in left leg; M62.830 Muscle spasm of back; Z87.891 Personal history of nicotine dependence | CPT/HCPCS: 99213 ==

== ENCOUNTER → 2021-07-29 08:30 | Outpatient (BNVA) | payer OTHER, SELFPAY | PROVIDERS: PCP Family Medicine; Visit Provider Orthopaedic Surgery | DX: M54.16 Radiculopathy, lumbar region (principal) | CPT/HCPCS: 72110 ==

== ENCOUNTER → 2021-08-24 11:04 | Outpatient (BNVA) | payer OTHER, SELFPAY | PROVIDERS: PCP Family Medicine; Referring Provider Family Medicine; Visit Provider Orthopaedic Surgery | DX: M19.011 Primary osteoarthritis, right shoulder (principal) | CPT/HCPCS: 73030 ==

== ENCOUNTER 2021-09-17 09:25 | Outpatient (CLI) | payer OTHER, SELFPAY ==
--- NOTE | 2021-09-17 09:29 | MR_ITS ---
WS: [id number] MRI LUMBAR SPINE NONCONTRAST TECHNIQUE: Sagittal T1, T2 and STIR imaging. Axial T1 and T2 imaging. CLINICAL INFORMATION: M54.16 - Radiculopathy, lumbar region COMPARISON: CT April 22, 2021 FINDINGS: Mild lumbar curve. No acute compression. No high-grade central canal stenosis. L1-L2: Normal. L2-L3: Mild facet arthropathy. Spinal canal and foramen are patent. L3-L4: Mild annular bulging with slight effacement of ventral thecal sac. Mild facet arthropathy. Spi nal canal and foramen are patent. L4-L5: Mild annular bulging with slight effacement of ventral thecal sac. Slight impingement traversi ng RIGHT greater than LEFT L5 nerve roots. Foramen are patent. Moderate facet arthropathy. L5-S1: Mild annular bulging with slight effacement of ventral thecal sac. Slight contact of the trave rsing S1 nerve roots. Foramen are patent. Moderate facet arthropathy. Chronic appearing sclerosis within the RIGHT sacral ala and sacroiliac joint appears unchanged since April 22, 2021. MR/MR lumbar spine wo con* [id number] IMPRESSION: 1. Mild lumbar curve. No acute compression. No high-grade central canal stenos is. 2. Mild annular bulging L3-L4 with slight impingement traversing right L4 nerv e root. 3. Annular bulging L4-L5 with slight impingement traversing L5 nerve roots anatoly aterally RIGHT greater than LEFT. 4. Annular bulging L5-S1 with slight impingement traversing S1 nerve roots. 5. Moderate facet arthropathy L4-L5 and L5-S1. 6. Partially evaluated sclerotic changes involving the RIGHT sacral ala and sa croiliac joint appears unchanged since April 22, 2021.
== END 2021-09-17 09:26 | disposition home or self-care (01) ==
LOC: RAD 09:25
PROVIDERS: PCP Family Medicine; Visit Provider Orthopaedic Surgery
DX: M54.16 Radiculopathy, lumbar region (principal); M51.26 Other intervertebral disc displacement, lumbar region; M51.27 Other intervertebral disc displacement, lumbosacral region; M47.816 Spondylosis without myelopathy or radiculopathy, lumbar region; M47.817 Spondylosis without myelopathy or radiculopathy, lumbosacral region
CPT/HCPCS: 72148

== ENCOUNTER 2021-09-17 09:25 | Outpatient (CLI) | payer OTHER, SELFPAY ==
--- NOTE | 2021-09-17 11:45 | MR_ITS ---
WS: [id number] MRI RIGHT SHOULDER NONCONTRAST TECHNIQUE: Sagittal T2, coronal T1, T2 and proton density imaging. Axial gradient PDE imaging. CLINICAL INFORMATION: M25.511 - Pain in right shoulder COMPARISON: None. FINDINGS: Moderate degenerative arthritis at the AC joint. Mild edema at the AC joint with mild downsloping of the acromion. Slight subacromial spurring. Impingement on the distal supraspinatus. Mild chronic thin araceli of the distal supraspinatus. Mild tendinopathy in the distal supraspinatus. Normal infraspinatus. Normal teres minor. Normal subscapularis. Normal biceps tendon in the bicipital groove. Degenerative fraying of the glenoid labrum. Normal intra-articular biceps tendon. Normal bic eps labral anchor. MR/MR shoulder RT wo con* [id number] IMPRESSION: 1. Moderate degenerative arthritis AC joint with mild edema with slight subacr omial spurring. 2. Chronic thinning of the distal supraspinatus with tendinopathy distally. 3. No high-grade rotator cuff tears. 4. Normal biceps tendon in the bicipital groove. 5. Normal biceps labral anchor. 6. Degenerative fraying of the glenoid labrum.
== END 2021-09-17 09:26 | disposition home or self-care (01) ==
LOC: RAD 09:25
PROVIDERS: PCP Family Medicine; Visit Provider Orthopaedic Surgery
DX: M19.011 Primary osteoarthritis, right shoulder (principal); R60.0 Localized edema
CPT/HCPCS: 73221

== ENCOUNTER 2021-10-14 10:33 | Outpatient (RCR) | payer OTHER, SELFPAY | END 2021-11-06 23:59 | disposition home or self-care (01) | LOC: SPT 10:33 | PROVIDERS: PCP Family Medicine; Referring Provider Orthopaedic Surgery; Visit Provider Orthopaedic Surgery | DX: M75.01 Adhesive capsulitis of right shoulder (principal) | CPT/HCPCS: 97161 ==

== ENCOUNTER → 2021-10-22 09:38 | Day surgery (SDC) | payer OTHER, SELFPAY | PROVIDERS: PCP Family Medicine; Visit Provider Orthopaedic Surgery | DX: Z01.818 Encounter for other preprocedural examination (principal) | CPT/HCPCS: 93005 ==

== ENCOUNTER 2021-10-29 05:25 | Day surgery (SDC) | payer OTHER, SELFPAY ==
[2021-10-22 09:24] VITALS: BMI 34.4
--- NOTE | 2021-10-22 09:38 | ECG_ITS ---
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 Measurements Intervals [place] Rate: 61 P: 77 [place]: 164 QRS: 24 QRSD: 98 T: -2 QT: 393 QTc: 398 Interpretive Statements SINUS RHYTHM NONSPECIFIC T-WAVE ABNORMALITY Compared to ECG 04/04/2018 09:08:41 No significant changes Electronically Signed On 10-22-2021 18:24:14 CDT by Preethi Chang M.D. [id number]
[2021-10-22 10:14] LABS: Basophils # 0.1 10^3/uL (0.0-0.1); Basophils % 0.7 %; Eosinophils # 0.2 10^3/uL (0.0-0.8); Eosinophils % 3.6 %; Hematocrit 43.1 % (42.0-52.0); Lymphocytes # 1.7 10^3/uL (0.8-4.8); Lymphocytes % 25.6 %; Mean Corpuscular HGB Conc 32.5 g/dL (30.0-36.0); Mean Platelet Volume 11.2 fL (7.4-10.4); Monocytes # 0.5 10^3/uL (0.2-0.9); Neutrophils # 4.15 10^3/uL (1.8-7.7); Neutrophils % 61.8 %; Nucleated Red Blood Cells % 0 %; Platelet Count 162 10^3/cmm (130-400); Red Blood Count 5.19 10^6/uL (4.1-5.3); Red Cell Distribution Width 13.5 % (12.1-15.1); White Blood Count 6.7 10^3/uL (4.0-10.0)
--- NOTE | 2021-10-22 10:16 | ANES.PREANE2 ---
Pre-Anesthetic Assessment Height/Weight: Height 1.7 m Weight 99.79 kg Preop Diagnosis: screening colonoscopy Operation Date: 10/29/21 08:30 Proposed Procedures p Lumbar Spine Decompression 57577/87578/m48.062(Not Applicable) - Blaine Campbell DO Familial anesthetic complications: None Was Beta Tom taken within 24 hours: N/A Was Clonidine taken within 24 hours: N/A Social No alcohol and No tobacco Exam alert, oriented x 3, clear to auscultation bilaterally and regular rate & rhythm Airway Submandibular: within normal limits Cervical ROM: within normal limits Mallampati: Class II Dentition: false CV/HEM Hypertension GI Gastroesophageal Reflux Disease Metabolic Diabetes Mellitus and Morbid Obesity Musc/skel Lower Back Pain and Osteoarthritis/DJD Anesthetic Plan ASA status: 3 Anesthesia: General Medications/Allergies Home Medications Medication Instructions Recorded Confirmed Last Taken Type insulin aspart U-100 100 unit/mL 2 - 3 unit SUBCUT TID 01/03/20 10/22/21 04/14/21 History subcutaneous solution (Novolog U-100 Insulin aspart) fluticasone propionate 50 1 spray INTRANASAL DAILY PRN 04/23/20 10/22/21 Unknown History mcg/actuation nasal spray,suspension (Allergy Relief (fluticasone)) aspirin 81 mg chewable tablet 81 mg PO DAILY@0800 06/16/20 10/22/21 04/13/21 History lisinopril 10 1 tab PO DAILY@0800 06/16/20 10/22/21 04/14/21 History mg-hydrochlorothiazide 12.5 mg tablet Vitamin C 1 tab PO DAILY@0800 09/03/20 10/22/21 09/02/20 History Vitamin D3 1 tab PO DAILY@0800 09/03/20 10/22/21 04/14/21 History baclofen 10 mg tablet 10 mg PO TID@, PRN 09/03/20 10/22/21 09/02/20 History multivitamin 1 tab PO DAILY@0800 09/03/20 10/22/21 09/02/20 History insulin detemir U-100 100 unit/mL 100 unit SUBCUT BID 03/12/21 10/22/21 04/14/21 History (3 mL) subcutaneous pen (Levemir FlexTouch U-100 Insulin) empagliflozin 10 mg tablet 10 mg PO DAILY 10/22/21 10/22/21 Unknown History (Jardiance) omeprazole 10 mg capsule,delayed 10 mg PO DAILY 10/22/21 10/22/21 Unknown History release Allergies Allergy/AdvReac Type Severity Reaction Status Date / Time erythromycin base Allergy Unknown Verified 10/22/21 09:19 [facility] Anesthesia Medical History 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 Colon polyps Diabetes mellitus Hx of glaucoma Hypertension Surgical History H/O esophagogastroduodenoscopy History of cataract extraction History of colonoscopy (04/15/21) Sigmoid polyp, internal hemorrhoids History of hand surgery Social History Smoking and tobacco status: former smoker (20 years ) Alcohol intake: current Alcohol intake frequency: few times a month History of recent travel: No Data Anesthesia : 10/22/21 09:48 10/22/21 09:48 Short CBC 10/22/21 Range/Units 09:48 WBC 6.7 (4.0-10.0) 10^3/uL Hgb 14.0 (11.7-16.6) g/dL Hct 43.1 (42.0-52.0) % MCV 83.0 (80-94) fl Plt Count 162 (130-400) 10^3/cmm Neut % (Auto) 61.8 % Neut # (Auto) 4.15 (1.8-7.7) 10^3/uL Cardiac Studies: No Data to Display
[2021-10-22 11:03] LABS: Anion Gap 17.1 (5-19); Blood Urea Nitrogen 20 mg/dL (8-23); Calcium 9.3 mg/dL (8.5-10.5); Carbon Dioxide 23 mmol/L (22-29); Chloride 105 mmol/L (98-107); Creatinine Clr Calc Pharmacy 100.8515; Glomerular Filtration Rate 96.4 mL/min (90-130); Glucose 129 mg/dL (65-115); Osmolality Calculated 296 mOsm/kg (285-295); Potassium 4.1 mmol/L (3.5-5.1); Sodium 141 mmol/L (136-145)
[2021-10-29] VITALS (9 sets, daily range): BP systolic 133–183; BP diastolic 72–114; PULSE 63–75; RESP 14–20; TEMP 36.3–37; O2SAT 91–96
--- NOTE | 2021-10-29 | SCC_ITS ---
Procedure done: 1. Bilateral L4/5 laminectomywith partial facetectomies 2. Bilateral L5/S1 laminectomy with partial facetectomies 18.5 seconds of fluoroscopic guidance, for a cumulative dose of 10.58 mGy, was provided to Dr. Campbell by the radiology department. C-arm images of the lumbar spine were saved for the patient's permanent record. [facility]
--- NOTE | 2021-10-29 | XR_ITS ---
WS: [id number] Exam: XR lumbar spine 1V 30006 Date/Time of Exam: 10/29/2021 12:00 AM Reason For Exam: spinal stenosis Anterior posterior C-arm images of the lower lumbar spine are submitted for evaluation. Localization instruments superimpose the lower lumbar spine to the left of midline on 2 separate imag es. No other significant finding on this limited series
[2021-10-29] MEDS: sodium chloride 0.9% 1,000 ML 30 ML IV (06:14)
[2021-10-29 06:26] LABS: Glucose Point of Care 75 mg/dL (70-110)
--- NOTE | 2021-10-29 06:30 | P.ANESUD_ITS ---
Pre-Anesthetic Update Pre-Anesthetic Assessment: Date of Surgery/Procedure: 10/29/21 Preop Miladys gnosis: Lumbar stenosis with neurogenic claudication Proposed Procedure: Operation Date: 10/29/21 07:00 Proposed Procedures p Lumbar Spine Decompression L4-5, L5-S1 33230/85573/m48.062(Not Applicable) - Blaine Campbell, DO Any changes to Pre-Anesthetic Assessment?: No Last Intake: Intake Last Liquid Date 10/29/21 Last Liquid Time 03:00 Last Solid Date 10/28/21 Last Solid Time 20:00 Vitals: Temperature 98.6 F 10/29/21 05:57 Temperature Source Temporal Artery S can 10/29/21 05:57 Pulse Rate 66 10/29/21 05:57 Pulse Rhythm 10/29/21 05:57 Pulse Strength 3+ Normal 10/29/21 05:57 Respiratory Rate 18 10/29/21 05:57 Blood Pressure 133/93 10/29/21 05:57 Blood Pressure Luisa n 106 10/29/21 05:57 Pulse Oximetry 95 10/29/21 05:57 Oxygen Delivery Me thod 10/29/21 05:57 Exam: Pre-Anes Outpt Exam: alert, oriented x 3, clear to auscultation bilaterally and regular rate & rhythm Other Pertinent Information: Other Pertinent Information: Took half of insulin morning dose BG WNL. Cardiac Studies: No Data to Display
--- NOTE | 2021-10-29 06:46 | W.PM.OPSUD ---
Surgery/Procedure H&P Update DATE OF PROCEDURE: October 29, 2021 DATE H&P PERFORMED: 10/05/21 H&P UPDATE INFORMATION: I have reviewed H&P completed within last 30 days, I have examined patient prior to procedure and No changes to prior documentation PREOP DIAGNOSIS: Lumbar stenosis with neurogenic claudication PLANNED PROCEDURE: Operation Date: 10/29/21 07:00 Proposed Procedures p Lumbar Spine Decompression L4-5, L5-S1 85674/90956/m48.062(Not Applicable) - Blaine Campbell DO
--- NOTE | 2021-10-29 08:37 | PM.OP ---
Operative Report Date of procedure: October 29, 2021 Pre-op diagnosis: Preop Diagnosis Lumbar stenosis with neurogenic claudication Post-op diagnosis: same Procedure done: 1. Bilateral L4/5 laminectomywith partial facetectomies 2. Bilateral L5/S1 laminectomy with partial facetectomies Surgeon: Blaine Campbell Estimated blood loss (mL): 5 Procedure: 1. Bilateral L4/5 laminectomywith partial facetectomies 2. Bilateral L5/S1 laminectomy with partial facetectomies Patient is brought to the operative suite. After undergoing anesthesia they are placed in the prone position. All areas of impingement are well padded. Patient is then prepped and draped in the normal sterile fashion. A skin incision is made over the L4/5 level. This is confirmed under c-arm guidance. A series of dilators are passed and the tubular retractor is docked on the L4 lamina. A bovie is used to clear the soft tissue off the lamina and the L 4/5 facet joint. A high speed juan david is then used to perform the laminectomy and take down the medial aspect of the L 4/5 facet joint. A kerrison rongeure was then used to take down the remaining lamina and smooth the edged of the laminectomy up to the point where the ligamentum flavum attaches. Attention was then brought to the medial aspect of the facet joint. The remaining medial aspect of the superior and inferior aspect of the facet joint were taken down with the kerrison from the pedicle of L4 to L 5. The facet joint had significant hypertrophy. Attention was then brought to the Ligamentum Flavum. The ligament was taken down from the lamina of L4 to L5 and out medially to the remaining facet joint. The ligament was thick. The dura was then exposed. The dura was in good repair. The L4 nerve was then traced with a curette out the L4/5 foramen and found to be adequately decompressed. The L5 nerve was traced with a curette around the L5 pedicle. The lateral recess was opened with a kerrison helping to further decompress the L5 nerve. The tubular retractor was then tilted to the contralateral side. The bovie was used to take down the soft tissue on the spinous process. The high speed juan david was used to take down the spinous process and then the contralateral lamina of L4. The kerrison rongeur was used to take down the remaining lamina to the point where the ligamentum flavum attached and the ligamentum flavum was taken down from L4 to L5. The kerrison rongeur was then used to reach across and take down the medial aspect of the contralateral L4/5 facet joint.The currete was used to trace the contralateral L4 nerve out the L4/5 foramen to make sure it was decompressed adequatesly and the L5 was traced around the L5 pedicle. The lateral recess was opened further with the kerrison to ensure the L5 is adequately decompressed. Wound is then irrigated copiously with saline and surgiflo is used to stop any bleeding. The tubular retractor is removed A skin incision is made over the L5/S1 level. This is confirmed under c-arm guidance. A series of dilators are passed and the tubular retractor is docked on the L5 lamina. A bovie is used to clear the soft tissue off the lamina and the L 5/S1 facet joint. A high speed juan david is then used to perform the laminectomy and take down the medial aspect of the L 5/S1 facet joint. A kerrison rongeure was then used to take down the remaining lamina and smooth the edged of the laminectomy up to the point where the ligamentum flavum attaches. Attention was then brought to the medial aspect of the facet joint. The remaining medial aspect of the superior and inferior aspect of the facet joint were taken down with the kerrison from the pedicle of L5 to S1. The facet joint had significant hypertrophy. Attention was then brought to the Ligamentum Flavum. The ligament was taken down from the lamina of L5 to S1 and out medially to the remaining facet joint. The ligament was thick. The dura was then exposed. The dura was in good repair. The L5 nerve was then traced with a curette out the L5/S1 foramen and found to be adequately decompressed. The S1 nerve was traced with a curette around the S1 pedicle. The lateral recess was opened with a kerrison helping to further decompress the S1 nerve. The tubular retractor was then tilted to the contralateral side. The bovie was used to take down the soft tissue on the spinous process. The high speed juan david was used to take down the spinous process and then the contralateral lamina of L5. The kerrison rongeur was used to take down the remaining lamina to the point where the ligamentum flavum attached and the ligamentum flavum was taken down from L5 to S1. The kerrison rongeur was then used to reach across and take down the medial aspect of the contralateral L5/S1 facet joint.The currete was used to trace the contralateral L5 nerve out the L5/S1 foramen to make sure it was decompressed adequatesly and the S1 was traced around the S1 pedicle. The lateral recess was opened further with the kerrison to ensure the S1 is adequately decompressed. Wound is then irrigated copiously with saline and surgiflo is used to stop any bleeding. The tubular retractor is removed and the wound is closed with vicryl and monocryl suture. Glue is then used to protect the wound. A sterile dressing is then placed. Patient was then placed in the supine position and transferred to the PACU in stable condition.
[2021-10-29] MEDS: fentaNYL 50 mcg/mL INJ 2mL IVP (09:04)
[2021-10-29] MEDS: HYDROcodone-acetaminophen 5-325 mg Tablet 1 TAB PO (09:46)
--- NOTE | 2021-10-29 12:59 | ANE.PACU2 ---
Inpatient post-anesthesia follow up: Airway intact: Yes Vital signs: Temperature 97.9 F Pulse Rate 66 Respiratory Rate 18 Blood Pressure 170/80 Pulse Oximetry 91 Oxygen Delivery Me thod Room Air Oxygen Flow Rate Fraction of Inspir ed Oxygen Hydration adequate: Yes Nausea and vomiting: No Pain level: 5 Mental status: Baseline
== END 2021-10-29 10:15 | disposition home or self-care (01) ==
PROVIDERS: Anesthesiology; PCP Family Medicine; Visit Provider Orthopaedic Surgery
PROC: (CPT 63005; principal; 2021-10-29 07:00)
DX: M48.062 Spinal stenosis, lumbar region with neurogenic claudication (principal); I10 Essential (primary) hypertension; K21.9 Gastro-esophageal reflux disease without esophagitis; E11.9 Type 2 diabetes mellitus without complications; E66.01 Morbid (severe) obesity due to excess calories; Z68.34 Body mass index [BMI] 34.0-34.9, adult; M19.90 Unspecified osteoarthritis, unspecified site; Z79.4 Long term (current) use of insulin; Z86.19 Personal history of other infectious and parasitic diseases; Z87.891 Personal history of nicotine dependence
CPT/HCPCS: 63047; 63048; 36416; 72020; 76000; 80048; 82962; 85025; J0690; J1100; J1170; J2370; J2405; J2704; J2710; J3010; J3490; J7030

== ENCOUNTER → 2021-11-11 13:55 | Outpatient (BNVA) | payer OTHER, SELFPAY | PROVIDERS: PCP Family Medicine; Visit Provider Orthopaedic Surgery | DX: Z47.89 Encounter for other orthopedic aftercare (principal); Z98.890 Other specified postprocedural states | CPT/HCPCS: 99024 ==

== ENCOUNTER → 2021-11-25 13:53 | Outpatient (BNVA) | payer OTHER, SELFPAY | PROVIDERS: PCP Family Medicine; Visit Provider Orthopaedic Surgery | DX: Z47.89 Encounter for other orthopedic aftercare (principal); Z98.890 Other specified postprocedural states | CPT/HCPCS: 99024 ==

== ENCOUNTER → 2021-12-07 14:44 | Outpatient (BNVA) | payer OTHER, SELFPAY | PROVIDERS: PCP Family Medicine; Visit Provider Orthopaedic Surgery | DX: Z47.89 Encounter for other orthopedic aftercare (principal); Z98.890 Other specified postprocedural states | CPT/HCPCS: 99024 ==

== ENCOUNTER 2021-12-08 06:00 | Outpatient (RCR) | payer OTHER, SELFPAY | END 2022-01-06 23:59 | disposition home or self-care (01) | LOC: SPT 06:00 | PROVIDERS: PCP Family Medicine; Referring Provider Orthopaedic Surgery; Visit Provider Orthopaedic Surgery | DX: M75.01 Adhesive capsulitis of right shoulder (principal) | CPT/HCPCS: 97110 ==

== ENCOUNTER 2022-01-07 06:00 | Outpatient (RCR) | payer OTHER, SELFPAY | END 2022-02-06 23:59 | disposition home or self-care (01) | LOC: SPT 06:00 | PROVIDERS: PCP Family Medicine; Referring Provider Orthopaedic Surgery; Visit Provider Orthopaedic Surgery | DX: M75.01 Adhesive capsulitis of right shoulder (principal) | CPT/HCPCS: 97110 ==

== ENCOUNTER → 2022-01-18 10:52 | Outpatient (BNVA) | payer OTHER, SELFPAY | PROVIDERS: PCP Family Medicine; Visit Provider Orthopaedic Surgery | DX: Z47.89 Encounter for other orthopedic aftercare (principal); Z98.890 Other specified postprocedural states | CPT/HCPCS: 99024 ==

== ENCOUNTER 2022-01-28 14:13 | Emergency (ER) | payer OTHER, SELFPAY ==
--- NOTE | 2022-01-28 15:05 | ED_ITS ---
HPI - Extremity Injury (Upper) General: Chief Complaint: Extremity Problem,Nontraumatic Stated Complaint: right shoulder pain Time Seen by Provider: 01/28/22 15:05 Source: patient Mode of arrival: ambulatory Limitations: no limitations History of Present Illness: 66-year-old male presents to the ER today for continued and worsening right shoulder pain. Patient reports he has recently finished 6 weeks of physical therapy on his right shoulder. Patient reports he started off with a frozen shoulder and had injections and physical therapy done. Patient was seeing Dr. Cabello and reports he did have an MRI done a while ago. Patient reports he pushed through the physical therapy however the patient's pain continued to worsen. Patient reports the pain is now radiating from the back of the shoulder into the anterior shoulder and down the arm. Patient reports nothing seems to help and he has trouble sleeping at night. Review of Systems General: Reports: 10 or more systems reviewed and unremarkable except in HPI and below PFSH ED PFSH: Medical History 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 Colon polyps Diabetes mellitus Hx of glaucoma Hypertension Surgical History H/O esophagogastroduodenoscopy History of cataract extraction History of colonoscopy (04/15/21) Sigmoid polyp, internal hemorrhoids History of hand surgery Social History Smoking and tobacco status: former smoker Alcohol intake: current Alcohol intake frequency: few times a month History of recent travel: No Physical Exam Const: COMMON NORMALS: no acute distress, average body habitus, patient oriented x3, no limitations, healthy appearing, alert and well nourished Neck/C-Spine: COMMON NORMALS: full ROM and no lymphadenopathy Resp: COMMON NORMALS: normal respiratory effort EFFORT & INSPECTION: Yes able to speak in complete sentences Cardio: COMMON NORMALS: regular rate and regular rhythm RATE: regular rate RHYTHM: regular rhythm Extremity: NARRATIVE EXTREMITY EXAM: Patient has pain with abduction greater than 45 degrees of the right shoulder. Patient's tenderness starts in the posterior shoulder joint and runs anteriorly. Patient reports pain down the right deltoid with any movement. No swelling or deformity is noted. Neuro: COMMON NORMALS: patient oriented x3 SENSORIUM/ORIENTATION: Yes alert Psych: COMMON NORMALS: mental status grossly normal, Normal thought process present, cooperative and speech normal SPEECH: Yes normal speech THOUGHT PROCESS: Normal thought process present Skin: COMMON NORMALS: no rashes or lesions noted GENERAL SKIN EXAM: no rashes or lesions noted Course ED course: 66-year-old male presents to the ER today for continued right shoulder pain. Patient reports he has been dealing with this for quite some time. Patient reports he saw Dr. Cabello who ordered an MRI and physical therapy. Patient reports he just finished 6 weeks of physical therapy and the pain is worsening. Patient reports the pain now starts posteriorly and runs anteriorly in the right shoulder. Patient reports pain with any abduction of the right arm. Patient reports he is having trouble sleeping due to the pain. Patient had steroid injections put in initially however he thinks this pain is in a different area. We will get an x-ray at this time. Vital Signs: Vital signs: Vital Signs Temperature 97.6 F 01/28/22 15:19 Pulse Rate 69 01/28/22 15:57 Respiratory Rate 14 01/28/22 15:19 Blood Pressure 153/78 01/28/22 15:19 Pulse Oximetry 95 01/28/22 15:19 MDM - Extremity Injury (Upper) Medical Decision Making 66-year-old male presents to the ER today for continued right shoulder pain. Patient reports he has been dealing with this for quite some time. Patient reports he saw Dr. Cabello who ordered an MRI and physical therapy. Patient reports he just finished 6 weeks of physical therapy and the pain is worsening. Patient reports the pain now starts posteriorly and runs anteriorly in the right shoulder. Patient reports pain with any abduction of the right arm. Patient reports he is having trouble sleeping due to the pain. Patient had steroid injections put in initially however he thinks this pain is in a different area. We will get an x-ray at this time. X-ray notes chronic changes in the right shoulder joint. I discussed findings with patient. I would recommend patient follow-up with Dr. Cabello to discuss new symptoms/worsening symptoms. We will try Medrol Dosepak and anti-inflammatory at this time. Recommended pendulum exercises. Return to the ER with new or worsening symptoms. Patient verbalized understanding and was in agreement with the treatment plan. Lab Data Radiology Impressions Shoulder X-Ray 01/28/22 15:06 IMPRESSION: No acute abnormality. Stable chronic abnormalities. Critical Care Time Critical Care Time: Critical Care Time: No Discharge Plan Discharge Patient Disposition: Home Clinical Impression: Chronic pain in right shoulder Condition: Stable Prescriptions: New Medrol (Price) 4 mg tablets,dose pack See Rx Instructions PO .COMPLEX Qty: 21 0RF Rx Instructions: orally per package directions meloxicam 15 mg tablet 15 mg PO DAILY Qty: 14 0RF No Action lisinopril-hydrochlorothiazide 10-12.5 mg tablet 1 tab PO DAILY@0800 0RF aspirin 81 mg tablet,chewable 81 mg PO DAILY@0800 0RF Levemir FlexTouch U-100 Insuln 100 unit/mL (3 mL) insulin pen 100 unit SUBCUT BID 0RF Rx Instructions: 35 UNITS IN AM AND 30 IN PM insulin aspart U-100 [Novolog U-100 Insulin aspart] 100 unit/mL solution 2 - 3 unit SUBCUT TID 0RF fluticasone propionate [Allergy Relief (fluticasone)] 50 mcg/actuation spray,suspension 1 spray INTRANASAL DAILY PRN (Reason: UNKNOWN) 0RF Rx Instructions: administer into each nostril prednisone 20 mg tablet 20 mg PO DAILY Qty: 15 0RF Rx Instructions: 60mg on day 1,2,3 40mg on day 4,5 20mg on day 6,7 monitor blood glucose while on this medication oxycodone 5 mg tablet 5 mg PO Q4H PRN (Reason: pain) 7 Days Qty: 40 0RF hydrocodone-acetaminophen 7.5-325 mg tablet 1 tab PO .q4-6 PRN (Reason: pain) 5 Days Qty: 30 0RF hydrocodone-acetaminophen 5-325 mg tablet 1 - 2 tab PO .Q4-6H 5 Days Qty: 40 0RF multivitamin Tablet 1 tab PO DAILY@0800 0RF Vitamin C 1 tab PO DAILY@0800 0RF Vitamin D3 1 tab PO DAILY@0800 0RF baclofen 10 mg tablet 10 mg PO TID@08,12,20 PRN (Reason: Spasms) 0RF Jardiance 10 mg Tablet 10 mg PO DAILY 0RF omeprazole 10 mg Capsule,Delayed Release(Dr/Ec) 10 mg PO DAILY 0RF Discharge Orders: Discharge ED (Routine); Ordered 01/28/22 Ordered By: Martha Kenyon Referrals: Misty Bedoya MD [Primary Care Provider] - Discharge Diet: Usual diet Discharge Activity: Limit activity as instructed Patient Instructions: Opioid Safety Activity Restrictions/Additional Instructions: Take medications as prescribed. Pendulum exercises as discussed. Follow-up with Dr. Cabello. Return to the ER with new or worsening symptoms. Coding Level of Care Code ED Veterans' Coordinator for [facility] Fwd Exam Detailed
--- NOTE | 2022-01-28 15:06 | XR_ITS ---
WS: [id number] XR shoulder RT min 2V* [id number] REASON FOR EXAM: R shoulder pain FINDINGS: The shoulder is unchanged compared to a previous examination of 08/24/2021. No acute fracture or joint disruption. Stable findings of moderate osteoarthritis in the acromioclavicular joint and glenohumeral joint. Stable findings of moderate rotator cuff tear cuff tendon arthropathy. XR/XR shoulder RT min 2V* [id number] IMPRESSION: No acute abnormality. Stable chronic abnormalities.
[2022-01-28 15:19] VITALS: BP 153/78; PULSE 78; RESP 14; TEMP 36.4; O2SAT 95; BMI 34.4
[2022-01-28 15:57] VITALS: PULSE 69
== END 2022-01-28 16:18 | disposition home or self-care (01) ==
PROVIDERS: Emergency Provider Physician Assistant; PCP Family Medicine
DX: G89.29 Other chronic pain (principal); M25.511 Pain in right shoulder; Z79.82 Long term (current) use of aspirin; Z79.4 Long term (current) use of insulin; Z86.19 Personal history of other infectious and parasitic diseases; E11.9 Type 2 diabetes mellitus without complications; I10 Essential (primary) hypertension; Z87.891 Personal history of nicotine dependence
CPT/HCPCS: 73030; 99283; 99291; 99292

== ENCOUNTER → 2022-02-02 09:21 | Outpatient (BNVA) | payer OTHER, SELFPAY | PROVIDERS: PCP Family Medicine; Visit Provider Orthopaedic Surgery | DX: M19.011 Primary osteoarthritis, right shoulder (principal); M67.911 Unspecified disorder of synovium and tendon, right shoulder; M75.41 Impingement syndrome of right shoulder | CPT/HCPCS: 99213 ==

== ENCOUNTER 2022-02-10 06:00 | Outpatient (RCR) | payer OTHER, SELFPAY | END 2022-03-09 23:59 | disposition home or self-care (01) | LOC: SPT 06:00 | PROVIDERS: PCP Family Medicine; Visit Provider Orthopaedic Surgery | DX: Z48.89 Encounter for other specified surgical aftercare (principal) | CPT/HCPCS: 97161 ==

== ENCOUNTER 2022-02-17 05:57 | Day surgery (SDC) | payer OTHER, SELFPAY ==
[2022-02-16 15:57] VITALS: BMI 34.4
[2022-02-17] VITALS (16 sets, daily range): BP systolic 133–169; BP diastolic 71–110; PULSE 62–96; RESP 14–18; TEMP 36.1–36.6; O2SAT 94–97
[2022-02-17 06:36] LABS: Glucose Point of Care 97 mg/dL (70-110)
[2022-02-17] MEDS: sodium chloride 0.9% 1,000 ML 30 ML IV (06:38)
[2022-02-17] MEDS: acetaminophen 500 mg Tablet 1000 MG PO (06:42)
--- NOTE | 2022-02-17 07:04 | W.PM.OPSUD ---
Surgery/Procedure H&P Update DATE OF PROCEDURE: February 17, 2022 DATE H&P PERFORMED: 02/02/22 H&P UPDATE INFORMATION: I have reviewed H&P completed within last 30 days PREOP DIAGNOSIS: Impingement, degenerative joint disease, labral tear right shoulder PLANNED PROCEDURE: Operation Date: 02/17/22 07:20 Proposed Procedures p Right shoulder arthroscopy with subacromial decompression : 99096,M67.911,M75.41,M19.019(Right) - Jeremy Cabello MD
[2022-02-17 07:16] LABS: Glucose Point of Care 53 mg/dL (70-110)
--- NOTE | 2022-02-17 07:21 | ANES.PREANE2 ---
Pre-Anesthetic Assessment Height/Weight: Height 1.7 m Weight 99.79 kg Temp Pulse Resp BP Pulse Ox O2 Del Method 97.9 F 77 18 149/75 95 02/17/22 06:09 02/17/22 06:09 02/17/22 06:09 02/17/22 06:09 02/17/22 06:09 02/17/22 06:14 Preop Diagnosis: Impingement, degenerative joint disease, labral tear right shoulder Operation Date: 02/17/22 07:20 Proposed Procedures p Right shoulder arthroscopy with subacromial decompression : 90682,M67.911,M75.41,M19.019(Right) - Jeremy Cabello MD Familial anesthetic complications: none Was Beta Tom taken within 24 hours: Yes Was Clonidine taken within 24 hours: N/A Last intake: Intake Last Liquid Date 02/16/22 Last Liquid Time 00:00 Last Solid Date 02/16/22 Last Solid Time 20:00 Social No alcohol and No tobacco Exam alert, oriented x 3 and regular rate & rhythm diminished b/l Airway Submandibular: within normal limits Cervical ROM: within normal limits Mallampati: Class II Dentition: false Pulmonary Chronic Obstructive Pulmonary Disease and Sleep Apnea (Does not use CPAP ) CV/HEM Hypertension METS < 4 None reported Hepatic Hepatitis (C) GI None reported Metabolic Hyperlipidemia Musc/skel Lower Back Pain and Osteoarthritis/DJD Neuropsych None reported Anesthetic Plan ASA status: 3 Anesthesia: Anesthesia Evaluation and General Other: We discussed risk and benefits of general anesthesia including PONV, sore throat (sometimes severe), corneal abrasion, positioning and peripheral nerve injuries, life threatening allergic reaction, post operative ICU admission requiring prolonged intubation, aspiration, stroke, heart attack, , and rare incidences of recall. Patient consents to proceed with general anesthesia. Patient feeling hypoglycemic. BG rechecked. 1/2 ampule D50 ordered pre op. Risk of > 500 ml blood loss (7ml/kg in children): No Medications/Allergies Home Medications Medication Instructions Recorded Confirmed Last Taken Type fluticasone propionate 50 1 spray intranasal DAILY PRN 04/23/20 02/16/22 02/09/22 History mcg/actuation nasal UNKNOWN spray,suspension (Allergy Relief (fluticasone)) aspirin 81 mg chewable tablet 81 mg PO DAILY@0800 06/16/20 02/16/22 02/14/22 History Vitamin C 1 tab PO DAILY@0800 09/03/20 02/16/22 02/16/22 History Vitamin D3 1 tab PO DAILY@0809/03/20 02/16/22 02/16/22 History multivitamin 1 tab PO DAILY@0800 09/03/20 02/16/22 02/16/22 History insulin detemir U-100 100 unit/mL 100 unit SUBCUT BID 03/12/21 02/16/22 02/16/22 History (3 mL) subcutaneous pen (Levemir FlexTouch U-100 Insulin) empagliflozin 10 mg tablet 10 mg PO DAILY 10/22/21 02/16/22 02/16/22 07:00 History (Jardiance) omeprazole 10 mg capsule,delayed 10 mg PO DAILY 10/22/21 02/16/22 02/17/22 History release alogliptin 25 mg tablet 25 mg PO QAM 02/16/22 02/16/22 02/16/22 07:00 History amlodipine 10 mg tablet 10 mg PO DAILY 02/16/22 02/16/22 02/17/22 History atorvastatin 40 mg tablet 40 mg PO DAILY 02/16/22 02/16/22 02/17/22 History Allergies Allergy/AdvReac Type Severity Reaction Status Date / Time erythromycin base Allergy Unknown Verified 02/02/22 10:09 Current Medications Generic Name Dose Route Start Last Admin Trade Name Freq PRN Reason Stop Dose Admin Sodium Chloride 1,000 mls @ 30 mls/hr 02/17/22 06:00 02/17/22 06:38 Sodium Chloride 0.9% IV 02/18/22 05:59 30 mls/hr .Q24H SCOTTIE Administration PFSH Anesthesia Medical History 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 Colon polyps Diabetes mellitus Hx of glaucoma Hypertension Surgical History H/O esophagogastroduodenoscopy History of cataract extraction History of colonoscopy (04/15/21) Sigmoid polyp, internal hemorrhoids History of hand surgery Social History Smoking and tobacco status: former smoker Alcohol intake: current Alcohol intake frequency: few times a month History of recent travel: No Data Anesthesia Cardiac Studies: No Data to Display
[2022-02-17] MEDS: dextrose 50% syringe 50 mL 25 ML IVP (07:23)
[2022-02-17 07:34] LABS: Glucose Point of Care 122 mg/dL (70-110)
[2022-02-17] MEDS: ceFAZolin 2,000 MG in sodium chloride 0.9% (plus) 50 ML 100 MG IV (07:34)
--- NOTE | 2022-02-17 09:29 | P.OP_ITS ---
Operative Report Date of procedure: February 17, 2022 Pre-op diagnosis: Preop Diagnosis Impingement, Acromionclavicular degenerative joint disease, labral tear right shoulder Post-op diagnosis: same Post-op diagnosis: Chondromalacia glenoid, degenerative tearing anterior and superior labrum, impingement, osteoarthritis acromioclavicular joint right shoulder Procedure done: Arthroscopic debridement anterior and superior labrum and chondromalacia anterior glenoid, arthroscopic subacromial decompression, and arthroscopic distal clavicle excision right shoulder Pathology: none sent Surgeon: Jeremy Cabello Anesthesia: General Estimated blood loss (mL): 5 Findings: The patient had fibrillation fraying and thinning of the cartilage in his anterior and inferior glenoid with associated degenerative labral tearing of his superior and anterior glenoid. He had a prominent anterior curvature to his acromion (type II) and enlargement degenerative changes of his distal clavicle. There was thinning of the central supraspinatus in the area of the footprint but no bursal sided tearing. His biceps tendon appeared to be healthy. Brief History: The patient is a 66-year-old male with a 4-year history of right shoulder pain. Pain persisted despite corticosteroid injection, medications, and physical therapy. An MRI suggested in addition to thinning of the rotator cuff degenerative changes acromioclavicular joint and labral fraying. As the patient failed conservative measures she was taken to the operating room for arthroscopic evaluation, subacromial decompression and distal clavicle excision and other indicated procedures Procedure: The patient was taken to the operating room and given a general anesthesia. He was given 2 g of Ancef and prepped and draped in the lateral position with his right arm in 15 pounds of traction. A timeout was performed. A posterior portal was made 2 cm inferior and medial to the posterior corner of the acromion. A scope cannula and trocar were driven into the glenohumeral joint. An anterior working portal was made with a scalpel blade. Initial attention was paid to the glenohumeral joint. Degenerative labral fraying were first identified at the biceps attachment and anterior labrum. Utilizing the incisor shaver and later the [employer] probe unstable flaps of anterior labrum were debrided. Glenoid was inspected finding areas of irregularity and spotty subchondral bone in the central anterior and inferior glenoid. This was lightly debrided with incisor shaver. Spotty areas of exposed subchondral bone were identified. The humeral head itself was free of chondromalacia. The r otator cuff was inspected identifying thinning of the central supraspinatus that involved perhaps 25% of the thickness of the tendon. The biceps tendon was pulled into the shoulder and found to be healthy. Next arthroscopy kit was driven into the subacromial space. Bursal tissue was removed with the incisor shaver and [employer] Werewolf probe. A prominent curvature was identified to the anterior acromion. A 5.5 mm acromionizer shaver was introduced to the lateral portal and approximately 4 mm of anterior and inferior acromion were removed. Debridement was then accomplished to the acromioclavicular joint with the [employer] Werewolf. The distal clavicle was outlined. The acromionizer shaver was introduced through the anterior portal and approximately 8 mm of distal clavicle excised. Attention was then focused on the rotator cuff. Bursal tissue was removed. The bursal aspect the rotator cuff appeared healthy. Arthroscopy equipment was removed. Portals were closed with 3-0 Prolene. Sterile dressings were applied. The patient was extubated, placed in a sling, and taken recovery in stable condition.
[2022-02-17] MEDS: fentaNYL 50 mcg/mL INJ 2mL IVP ×2 (09:49→10:00)
[2022-02-17 10:15] LABS: Glucose Point of Care 124 mg/dL (70-110)
[2022-02-17] MEDS: HYDROmorphone 1 mg/mL INJ 1 mL 0.5 MG IVP (10:15)
--- NOTE | 2022-02-17 11:17 | ANE.PACU2 ---
Inpatient post-anesthesia follow up: Airway intact: Yes Vital signs: Temperature 97.4 F Pulse Rate 78 Respiratory Rate 18 Blood Pressure 135/71 Pulse Oximetry 97 Oxygen Delivery Me thod Room Air Oxygen Flow Rate 3 Fraction of Inspir ed Oxygen Hydration adequate: Yes Nausea and vomiting: No Pain level: 2 Mental status: Baseline
[2022-02-17] MEDS: oxyCODONE 5 mg IR Tab/Cap PO (11:19)
== END 2022-02-17 11:35 | disposition home or self-care (01) ==
PROVIDERS: PCP Family Medicine; Visit Provider Orthopaedic Surgery
PROC: (CPT 29805; principal; 2022-02-17 07:20)
DX: M25.811 Other specified joint disorders, right shoulder (principal); M19.011 Primary osteoarthritis, right shoulder; S43.401A Unspecified sprain of right shoulder joint, initial encounter; X58.XXXA Exposure to other specified factors, initial encounter; J44.9 Chronic obstructive pulmonary disease, unspecified; G47.30 Sleep apnea, unspecified; E78.5 Hyperlipidemia, unspecified; I10 Essential (primary) hypertension; Z86.19 Personal history of other infectious and parasitic diseases; E11.9 Type 2 diabetes mellitus without complications; Z87.891 Personal history of nicotine dependence
CPT/HCPCS: 29822; 29824; 29826; 36416; 82962; J1100; J1170; J1885; J2405; J2704; J2710; J3010; J3490; J7030

== ENCOUNTER → 2022-02-21 09:43 | Outpatient (BNVA) | payer OTHER, SELFPAY | PROVIDERS: PCP Family Medicine; Visit Provider Surgery | DX: K63.5 Polyp of colon (principal) | CPT/HCPCS: 99213 ==

== ENCOUNTER → 2022-02-22 13:26 | Outpatient (BNVA) | payer OTHER, SELFPAY | PROVIDERS: PCP Family Medicine; Visit Provider Nurse Practitioner Family | DX: Z48.89 Encounter for other specified surgical aftercare (principal) | CPT/HCPCS: 99024 ==

== ENCOUNTER → 2022-03-03 13:48 | Outpatient (BNVA) | payer OTHER, SELFPAY | PROVIDERS: PCP Family Medicine; Visit Provider Nurse Practitioner Family | DX: Z48.89 Encounter for other specified surgical aftercare (principal); M75.41 Impingement syndrome of right shoulder | CPT/HCPCS: 99024 ==

== ENCOUNTER → 2022-03-08 11:04 | Outpatient (BNVA) | payer OTHER, SELFPAY | PROVIDERS: PCP Family Medicine; Visit Provider Orthopaedic Surgery | DX: M48.062 Spinal stenosis, lumbar region with neurogenic claudication (principal) | CPT/HCPCS: 99024; 99212 ==

== ENCOUNTER 2022-05-26 07:30 | Day surgery (SDC) | payer OTHER, SELFPAY ==
[2022-05-24 13:58] VITALS: BMI 34.4
[2022-05-26 07:52] VITALS: BP 142/78; PULSE 68; RESP 18; TEMP 36.2; O2SAT 96
--- NOTE | 2022-05-26 07:54 | ANES.PREANE2 ---
Pre-Anesthetic Assessment Height/Weight: Height 1.7 m Weight 99.79 kg Temp Pulse Resp BP Pulse Ox O2 Del Method 97.2 F L 68 18 142/78 96 05/26/22 07:52 05/26/22 07:52 05/26/22 07:52 05/26/22 07:52 05/26/22 07:52 05/26/22 07:52 Preop Diagnosis: History of colon polyps Operation Date: 05/26/22 09:00 Proposed Procedures p Colonoscopy 75934,K63.5(Not Applicable) - Andres Cervantes MD Familial anesthetic complications: None Was Beta Tom taken within 24 hours: N/A Was Clonidine taken within 24 hours: N/A Last intake: > 8hrs Social No alcohol and No tobacco Exam alert, oriented x 3, clear to auscultation bilaterally and regular rate & rhythm Airway Mallampati: Class III Dentition: false Pulmonary Chronic Obstructive Pulmonary Disease CV/HEM Hypertension GI Gastroesophageal Reflux Disease Metabolic Diabetes Mellitus Anesthetic Plan ASA status: 3 Anesthesia: MAC Risk of > 500 ml blood loss (7ml/kg in children): No Medications/Allergies Home Medications Medication Instructions Recorded Confirmed Last Taken Type fluticasone propionate 50 1 spray intranasal DAILY PRN 04/23/20 05/24/22 1 Week Ago History mcg/actuation nasal UNKNOWN ~05/17/22 spray,suspension (Allergy Relief (fluticasone)) aspirin 81 mg chewable tablet 81 mg PO DAILY@0800 06/16/20 05/24/22 1 Week Ago History ~05/17/22 Vitamin C 1 tab PO DAILY@0800 09/03/20 05/24/22 1 Week Ago History ~05/17/22 Vitamin D3 1 tab PO DAILY@0800 09/03/20 05/24/22 1 Week Ago History ~05/17/22 multivitamin 1 tab PO DAILY@0800 09/03/20 05/24/22 1 Week Ago History ~05/17/22 insulin detemir U-100 100 unit/mL 100 unit SUBCUT DAILY 03/12/21 05/25/22 05/24/22 History (3 mL) subcutaneous pen (Levemir FlexTouch U-100 Insulin) empagliflozin 10 mg tablet 10 mg PO DAILY 10/22/21 05/24/22 05/24/22 History (Jardiance) omeprazole 10 mg capsule,delayed 10 mg PO DAILY 10/22/21 05/24/22 05/24/22 History release alogliptin 25 mg tablet 25 mg PO QAM 02/16/22 05/24/22 05/24/22 History amlodipine 10 mg tablet 10 mg PO DAILY 02/16/22 05/24/22 05/24/22 History atorvastatin 40 mg tablet 40 mg PO DAILY 02/16/22 05/24/22 05/24/22 History peg 3350-electrolytes 236 240 ml PO Q10M #4,000 mL 02/21/22 05/24/22 Unknown Rx gram-22.74 gram-6.74 gram-5.86 gram solution (Golytely) Allergies Allergy/AdvReac Type Severity Reaction Status Date / Time erythromycin base Allergy Unknown Verified 05/26/22 07:54 [facility], [facility] Anesthesia Medical History 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 Colon polyps Diabetes mellitus Hx of glaucoma Hypertension Surgical History H/O esophagogastroduodenoscopy History of cataract extraction History of colonoscopy (04/15/21) Sigmoid polyp, internal hemorrhoids History of hand surgery Social History Smoking and tobacco status: former smoker Alcohol intake: current Alcohol intake frequency: few times a month History of recent travel: No Data Anesthesia Cardiac Studies: No Data to Display
[2022-05-26 08:10] LABS: Glucose Point of Care 107 mg/dL (70-110)
[2022-05-26] MEDS: sodium chloride 0.9% 1,000 ML 30 ML IV (08:30)
--- NOTE | 2022-05-26 09:20 | P.HP_ITS ---
Same Day Surgery H&P Indication for Procedure/HPI DATE OF PROCEDURE: May 26, 2022 CHIEF COMPLAINT/INDICATIONFOR SURGICAL PROCEDURE: History of colon polyps PREOP DIAGNOSIS: History of colon polyps PLANNED PROCEDURE: Operation Date: 05/26/22 09:00 Proposed Procedures p Colonoscopy 36165,K63.5(Not Applicable) - Andres Cervantes MD 02/21/2022 This is a pleasant 66 years old gentleman referred to my practice with history of colon polyps.? Patient denies bleeding per rectum or history of colon cancer.? Recently had right shoulder surgery and he is referred to me to consider surveillance colonoscopy. 05/26/2022 Patient comes today for surveillance colonoscopy. ROS All systems have been reviewed negative except as for the above or per problem list. Medications/Allergies* Home Medications Medication Instructions Recorded Confirmed Type fluticasone propionate 50 1 spray intranasal DAILY PRN 04/23/20 05/24/22 History mcg/actuation nasal UNKNOWN spray,suspension (Allergy Relief (fluticasone)) aspirin 81 mg chewable tablet 81 mg PO DAILY@0800 06/16/20 05/24/22 History Vitamin C 1 tab PO DAILY@0800 09/03/20 05/24/22 History Vitamin D3 1 tab PO DAILY@0800 09/03/20 05/24/22 History multivitamin 1 tab PO DAILY@0800 09/03/20 05/24/22 History insulin detemir U-100 100 unit/mL 100 unit SUBCUT DAILY 03/12/21 05/25/22 History (3 mL) subcutaneous pen (Levemir FlexTouch U-100 Insulin) empagliflozin 10 mg tablet 10 mg PO DAILY 10/22/21 05/24/22 History (Jardiance) omeprazole 10 mg capsule,delayed 10 mg PO DAILY 10/22/21 05/24/22 History release alogliptin 25 mg tablet 25 mg PO QAM 02/16/22 05/24/22 History amlodipine 10 mg tablet 10 mg PO DAILY 02/16/22 05/24/22 History atorvastatin 40 mg tablet 40 mg PO DAILY 02/16/22 05/24/22 History Allergies/Adverse Reactions Allergy/AdvReac Type Severity Reaction Status Date / Time erythromycin base Allergy Unknown Verified 05/26/22 09:21 Current Medications: Generic Name Dose Route Start Last Admin Trade Name Freq PRN Reason Stop Dose Admin Sodium Chloride 1,000 mls @ 30 mls/hr 05/26/22 07:45 05/26/22 08:30 Sodium Chloride 0.9% IV 30 mls/hr .Q24H SCOTTIE Administration Pertinent History/Comorbid Conditions* Medical History (Updated 02/05/22 @ 00:01 by ) 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 Colon polyps Diabetes mellitus Hx of glaucoma Hypertension Surgical History (Updated 04/15/21 @ 10:02 by Cristóbal Vides MD) H/O esophagogastroduodenoscopy History of cataract extraction History of colonoscopy (04/15/21) Sigmoid polyp, internal hemorrhoids History of hand surgery Social History Smoking and tobacco status: former smoker Alcohol intake: current Alcohol intake frequency: few times a month History of recent travel: No Pertinent Exam Findings alert, oriented x 3, regular rate & rhythm and procedure specific exam findings (Abdominal exam nontender nondistended soft) Recommendations Surgery/Procedure today (Colonoscopy with possible biopsy) Coding Level of Care Code Acute [employer]s Officer for Urszula Krueger
[2022-05-26 09:54] VITALS: BP 114/65; PULSE 71; RESP 18; TEMP 36.1; O2SAT 94
[2022-05-26 10:06] VITALS: BP 130/75; PULSE 67; RESP 18; O2SAT 96
--- NOTE | 2022-05-26 10:26 | ANE.PACU2 ---
Inpatient post-anesthesia follow up: Airway intact: Yes Vital signs: Temperature 97 F Pulse Rate 67 Respiratory Rate 18 Blood Pressure 130/75 Pulse Oximetry 96 Oxygen Delivery Me thod Room Air Oxygen Flow Rate Fraction of Inspir ed Oxygen Hydration adequate: Yes Nausea and vomiting: No Pain level: 0 Mental status: Baseline
== END 2022-05-26 10:20 | disposition home or self-care (01) ==
PROVIDERS: PCP Family Medicine; Visit Provider Surgery
PROC: 0DJD8ZZ Inspection of Lower Intestinal Tract, Via Natural or Artificial Opening Endoscopic (ICD-10-PCS; CPT 45378; principal; 2022-05-26 09:00)
DX: Z12.11 Encounter for screening for malignant neoplasm of colon (principal); Z79.82 Long term (current) use of aspirin; Z79.4 Long term (current) use of insulin; E11.9 Type 2 diabetes mellitus without complications; I10 Essential (primary) hypertension; J44.9 Chronic obstructive pulmonary disease, unspecified; K21.9 Gastro-esophageal reflux disease without esophagitis; Z87.891 Personal history of nicotine dependence
CPT/HCPCS: 36416; 45378; 82962; J2704; J7030

== ENCOUNTER → 2022-07-12 12:46 | Outpatient (BNVA) | payer OTHER, SELFPAY | PROVIDERS: PCP Family Medicine; Referring Provider Family Medicine; Visit Provider Orthopaedic Surgery | DX: Z48.89 Encounter for other specified surgical aftercare (principal); M94.211 Chondromalacia, right shoulder | CPT/HCPCS: 99212 ==

== ENCOUNTER → 2022-07-21 13:12 | Outpatient (BNVA) | payer OTHER, SELFPAY | PROVIDERS: PCP Family Medicine; Referring Provider Family Medicine; Visit Provider Orthopaedic Surgery | DX: M48.062 Spinal stenosis, lumbar region with neurogenic claudication (principal); M41.9 Scoliosis, unspecified | CPT/HCPCS: 72100; 99213 ==

== ENCOUNTER 2022-10-15 03:44 | Emergency (ER) | payer OTHER, SELFPAY ==
[2022-10-15 03:44] VITALS: BP 132/96; PULSE 83; RESP 16; TEMP 36.9; O2SAT 94; BMI 34.4
--- NOTE | 2022-10-15 04:00 | CTR_ITS ---
PROCEDURE INFORMATION: Exam: CT Abdomen And Pelvis Without Contrast Exam date and time: 10/15/2022 4:25 AM Age: 67 years old Clinical indication: Abdominal pain; Flank; Left; Prior surgery; Surgery date: 6+ months; Surgery type: Egd; Patient HX: Hep c with cirrhosis; Additional info: Left flank pain TECHNIQUE: Imaging protocol: Computed tomography of the abdomen and pelvis without contrast. Radiation optimization: All CT scans at this facility use at least one of these dose optimization techniques: automated exposure control; mA and/or kV adjustment per patient size (includes targeted exams where dose is matched to clinical indication); or iterative reconstruction. REPORTING DATA: Count of CT and Cardiac NM exams in prior 12 months: This patient has received 0 known CTs and 0 known cardiac nuclear medicine studies in the 12 months prior to the current study. COMPARISON: CT abdomen pelvis w con* [id number] 02/03/2021 3:39 AM RADIATION DOSE METRICS: Total DLP (mGy-cm): 1027.42 FINDINGS: Lungs: The lung bases are clear. No effusion Liver: There is cirrhotic morphology of the liver. Gallbladder and bile ducts: There is cholelithiasis without wall thickening or pericholecystic fluid. No bile duct stone. Pancreas: Normal. No ductal dilation. Spleen: Normal. No splenomegaly. Adrenal glands: Normal. No mass. Kidneys and ureters: No nephroureterolithiasis or urinary bladder stone. Stomach and bowel: There are few loops of mildly prominent small bowel , nonspecific but may be seen with gastroenteritis. Appendix: No evidence of appendicitis. Intraperitoneal space: Unremarkable. No free air. No significant fluid collection. Vasculature: There is mild atherosclerotic disease. Lymph nodes: Unremarkable. No enlarged lymph nodes. Urinary bladder: See Kidneys and ureters finding. Reproductive: Unremarkable as visualized. Bones/joints: Unremarkable. No acute fracture. Soft tissues: Unremarkable. CT/CT kidney stone [id number] IMPRESSION: 1. There are few loops of mildly prominent small bowel , nonspecific but may be seen with gastroenteritis. 2. No nephroureterolithiasis or urinary bladder stone. 3. Cholelithiasis without cholecystitis . 4. Cirrhosis.
--- NOTE | 2022-10-15 04:07 | ED_ITS ---
HPI - General Adult General: Chief complaint: Abdominal Pain Stated complaint: left kidney pain Time Seen by Provider: 10/15/22 03:50 Source: patient Mode of arrival: ambulatory Limitations: no limitations History of Present Illness: 67-year-old male states that tonight has been having left-sided flank pain. States pain has been very sharp in nature denies any radiation of the pain states that he just feels like it is pain deep inside is not worse with movement not worse with palpation he denies any dysuria denies any vomiting denies any diarrhea no history of kidney stones in the past. Associated symptoms: Deny chest pain, dyspnea, headache(s), nausea, rash or vomiting Review of Systems Const: Denies: fever(s), chills, body aches or change in appetite Eyes: Denies: blurry vision or eye discomfort ENMT: Denies: throat pain or dental pain Card: Denies: chest pain Resp: Denies: dyspnea GI: Denies: abdominal pain, nausea, vomiting or diarrhea : Reports: flank pain Musc: Denies: neck pain or back pain Skin/Breast: Denies: rash Neuro: Denies: headache(s) Psych: Denies: depression Anibal/Lymph: Denies: easy bruising All/Imm: Denies: urticaria PFSH ED PFSH: Medical History 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 Colon polyps Diabetes mellitus Hx of glaucoma Hypertension Surgical History H/O esophagogastroduodenoscopy History of cataract extraction History of colonoscopy (04/15/21) Sigmoid polyp, internal hemorrhoids History of hand surgery Social History Smoking and tobacco status: former smoker Alcohol intake: current Alcohol intake frequency: few times a month Physical Exam Const: COMMON NORMALS: no acute distress, patient oriented x3 and healthy appearing HENMT: COMMON NORMALS: normocephalic and atraumatic HEAD & SCALP: normocephalic and atraumatic Eye: COMMON NORMALS: Equal, round and reactive pupils present and EOMs intact bilaterally PUPIL: Yes Equal, round and reactive pupils present Neck/C-Spine: COMMON NORMALS: full ROM and supple Chest: COMMONS NORMALS: normal inspection of the chest and normal palpation of entire chest wall Resp: COMMON NORMALS: normal respiratory effort, No retractions, No use of accessory muscles and clear to auscultation bilaterally AUSCULTATION: clear to auscultation bilaterally Cardio: COMMON NORMALS: regular rate, regular rhythm and No murmurs present (Cardio) RATE: regular rate RHYTHM: regular rhythm GI: COMMON NORMALS: Normal to inspection, nondistended, normoactive bowel sounds present, Soft to palpation, non-tender and no masses PALPATION: Yes Soft to palpation Extremity: COMMON NORMALS: normal to inspection and full ROM Neuro: COMMON NORMALS: patient oriented x3, moves all extremities and no focal motor deficits Psych: COMMON NORMALS: mental status grossly normal, Normal thought process present and cooperative THOUGHT PROCESS: Normal thought process present Skin: COMMON NORMALS: no rashes or lesions noted and no wounds GENERAL SKIN EXAM: no rashes or lesions noted Course Vital Signs: Vital signs: Vital Signs Temperature 98.4 F 10/15/22 03:44 Pulse Rate 80 10/15/22 06:16 Respiratory Rate 18 10/15/22 06:16 Blood Pressure 112/69 10/15/22 06:16 Pulse Oximetry 93 10/15/22 06:16 Oxygen Delivery Me thod 10/15/22 06:16 [facility] - General Adult Medical Decision Making Patient presents here with left flank pain CT showed no acute abnormalities creatinine is normal no UTI he does feel improved here we will prescribe him pain meds he is to follow-up his PCP and return if worsening. Lab Data 10/15/22 04:06 10/15/22 04:06 Radiology Impressions Abdomen/Pelvis CT 10/15/22 04:00 IMPRESSION: 1. There are few loops of mildly prominent small bowel , nonspecific but may be seen with gastroenteritis. 2. No nephroureterolithiasis or urinary bladder stone. 3. Cholelithiasis without cholecystitis . 4. Cirrhosis. Laboratory Results WBC 6.9 10^3/uL (4.0-10.0) 10/15/22 04:06 RBC 5.40 10^6/uL (4.1-5.3) H 10/15/22 04:06 Hgb 14.7 g/dL (11.7-16.6) 10/15/22 04:06 Hct 43.9 % (42.0-52.0) 10/15/22 04:06 MCV 81.3 fl (80-94) 10/15/22 04:06 MCH 27.2 pg (28.0-34.0) L 10/15/22 04:06 MCHC 33.5 g/dL (30.0-36.0) 10/15/22 04:06 RDW 13.2 % (12.1-15.1) 10/15/22 04:06 Plt Count 165 10^3/cmm (130-400) 10/15/22 04:06 MPV 11.3 fL (7.4-10.4) H 10/15/22 04:06 Neut % (Auto) 65.1 % 10/15/22 04:06 Lymph % (Auto) 21.6 % 10/15/22 04:06 Grand % (Auto) 8.1 % 10/15/22 04:06 Eos % (Auto) 4.2 % 10/15/22 04:06 Baso % (Auto) 0.6 % 10/15/22 04:06 Neut # (Auto) 4.49 10^3/uL (1.8-7.7) 10/15/22 04:06 Lymph # (Auto) 1.5 10^3/uL (0.8-4.8) 10/15/22 04:06 Grand # (Auto) 0.6 10^3/uL (0.2-0.9) 10/15/22 04:06 Eos # (Auto) 0.3 10^3/uL (0.0-0.8) 10/15/22 04:06 Baso # (Auto) 0.0 10^3/uL (0.0-0.1) 10/15/22 04:06 Nucleated RBC % (auto) 0 % 10/15/22 04:06 Nucleated RBCs # 0.0 /100WBC 10/15/22 04:06 Sodium 136 mmol/L (136-145) 10/15/22 04:06 Potassium 4.6 mmol/L (3.5-5.1) 10/15/22 04:06 Chloride 102 mmol/L (98-107) 10/15/22 04:06 Carbon Dioxide 22 mmol/L (22-29) 10/15/22 04:06 Anion Gap 16.6 (5-19) 10/15/22 04:06 BUN 19 mg/dL (8-23) 10/15/22 04:06 Creatinine 1.0 mg/dL (0.7-1.2) 10/15/22 04:06 GFR Calculation 74.3 mL/min (90-130) L 10/15/22 04:06 Glucose 407 mg/dL (65-115) H 10/15/22 04:06 Calculated Osmolality 301 mOsm/kg (285-295) H 10/15/22 04:06 Calcium 9.5 mg/dL (8.5-10.5) 10/15/22 04:06 Total Bilirubin 0.3 mg/dL (0.15-1.2) 10/15/22 04:06 AST 16 U/L (0-40) 10/15/22 04:06 ALT 26 U/L (0-41) 10/15/22 04:06 Alkaline Phosphatase 118 U/L (40-130) 10/15/22 04:06 Total Protein 6.9 g/dL (6.6-8.7) 10/15/22 04:06 Albumin 4.2 g/dL (3.5-5.2) 10/15/22 04:06 Globulin 2.7 g/dL (1.3-4.6) 10/15/22 04:06 Lipase 19 U/L (13-60) 10/15/22 04:06 Urine Color Yellow (Yellow) 10/15/22 04:55 Urine Appearance Clear (CLEAR) 10/15/22 04:55 Urine pH 5 (5-7) 10/15/22 04:55 Ur Specific Holden 1.010 (1.005-1.030) 10/15/22 04:55 Urine Protein Neg (Negative) 10/15/22 04:55 Urine Glucose (UA) 4+ (Normal) H 10/15/22 04:55 Urine Ketones 1+ (Negative) H 10/15/22 04:55 Urine Blood Neg (Negative) 10/15/22 04:55 Urine Nitrate Negative (Negative) 10/15/22 04:55 Urine Bilirubin Neg (Negative) 10/15/22 04:55 Urine Urobilinogen Norm mg/dL (Negative) 10/15/22 04:55 Ur Leukocyte Esterase Negative (Negative) 10/15/22 04:55 Discharge Plan Discharge Patient Disposition: Home Clinical Impression: Acute left flank pain Condition: Stable Prescriptions: New hydrocodone-acetaminophen 5-325 mg tablet 1 tab PO Q6H PRN (Reason: pain) Qty: 14 0RF ondansetron 4 mg tablet,disintegrating 4 mg PO Q6H PRN (Reason: nausea and vomiting) Qty: 14 0RF No Action aspirin 81 mg tablet,chewable 81 mg PO DAILY@0800 Levemir FlexTouch U-100 Insuln 100 unit/mL (3 mL) insulin pen 100 unit SUBCUT DAILY Rx Instructions: 100 units each morning fluticasone propionate [Allergy Relief (fluticasone)] 50 mcg/actuation spray,suspension 1 spray INTRANASAL DAILY PRN (Reason: UNKNOWN) Rx Instructions: administer into each nostril peg 3350-electrolytes [Golytely] 236-22.74-6.74 -5.86 gram recon soln 240 ml PO Q10M Qty: 4000 0RF Rx Instructions: until fecal effluent is clear multivitamin Tablet 1 tab PO DAILY@0800 Vitamin C 1 tab PO DAILY@0800 Vitamin D3 1 tab PO DAILY@0800 Jardiance 10 mg Tablet 10 mg PO DAILY omeprazole 10 mg Capsule,Delayed Release(Dr/Ec) 10 mg PO DAILY atorvastatin 40 mg Tablet 40 mg PO DAILY amlodipine 10 mg Tablet 10 mg PO DAILY alogliptin 25 mg Tablet 25 mg PO QAM Discharge Orders: Discharge ED (Routine); Ordered 10/15/22 Ordered By: Alberto Gloria Referrals: Misty Bedoya MD [Primary Care Provider] - 1-3 days Discharge Diet: Advance as tolerated Discharge Activity: Resume usual activity Patient Instructions: Flank Pain (ED) Coding Level of Care Code ED Wet Char Conveyor Tender for Urszula Krueger
[2022-10-15 04:11] VITALS: BP 131/86; PULSE 85; RESP 16; O2SAT 92
[2022-10-15] MEDS: sodium chloride 0.9% 1,000 ML 999 ML IV (04:15)
[2022-10-15 04:16] VITALS: RESP 16
[2022-10-15] MEDS: morphine 4 mg/mL SDV 1 mL IVP (04:16)
[2022-10-15] MEDS: ondansetron 2 mg/ML SDV 2 mL 4 MG IVP (04:17)
[2022-10-15 04:33] LABS: Alanine Aminotransferase 26 U/L (0-41); Albumin Level 4.2 g/dL (3.5-5.2); Alkaline Phosphatase 118 U/L (40-130); Anion Gap 16.6 (5-19); Aspartate Amino Transferase 16 U/L (0-40); Blood Urea Nitrogen 19 mg/dL (8-23); Calcium 9.5 mg/dL (8.5-10.5); Carbon Dioxide 22 mmol/L (22-29); Chloride 102 mmol/L (98-107); Globulin 2.7 g/dL (1.3-4.6); Glomerular Filtration Rate 74.3 mL/min (90-130); Glucose 407 mg/dL (65-115); Lipase 19 U/L (13-60); Osmolality Calculated 301 mOsm/kg (285-295); Potassium 4.6 mmol/L (3.5-5.1); Sodium 136 mmol/L (136-145); Total Bilirubin 0.3 mg/dL (0.15-1.2); Total Protein 6.9 g/dL (6.6-8.7)
[2022-10-15 04:51] LABS: Basophils % 0.6 %; Eosinophils # 0.3 10^3/uL (0.0-0.8); Eosinophils % 4.2 %; Hematocrit 43.9 % (42.0-52.0); Hemoglobin 14.7 g/dL (11.7-16.6); Lymphocytes # 1.5 10^3/uL (0.8-4.8); Lymphocytes % 21.6 %; Mean Corpuscular HGB Conc 33.5 g/dL (30.0-36.0); Mean Corpuscular Hemoglobin 27.2 pg (28.0-34.0); Mean Corpuscular Volume 81.3 fl (80-94); Mean Platelet Volume 11.3 fL (7.4-10.4); Monocytes # 0.6 10^3/uL (0.2-0.9); Monocytes % 8.1 %; Neutrophils # 4.49 10^3/uL (1.8-7.7); Neutrophils % 65.1 %; Nucleated Red Blood Cells % 0 %; Platelet Count 165 10^3/cmm (130-400); Red Cell Distribution Width 13.2 % (12.1-15.1); White Blood Count 6.9 10^3/uL (4.0-10.0)
[2022-10-15 05:13] VITALS: BP 108/69; RESP 16; O2SAT 93
[2022-10-15 05:15] LABS: Add Urine Microscopic? NO; Charge for UA Resulting for Rev
[2022-10-15 05:19] LABS: Bilirubin Urine Neg (Negative); Blood Urine Neg (Negative); Glucose Urine UA 4+ (Normal); Ketones Urine 1+ (Negative); Leukocyte Esterase Urine Negative (Negative); Nitrate Urine Negative (Negative); Protein Urine Neg (Negative); Urine Appearance Clear (CLEAR); Urine Color Yellow (Yellow); Urobilinogen Urine Norm (Negative); pH Urine 5 (5-7)
[2022-10-15] MEDS: insulin regular-human 100 units/1 mL 10 UNIT IVP (05:39)
[2022-10-15 06:16] VITALS: BP 112/69; PULSE 80; RESP 18; O2SAT 93
[2022-10-15 18:34] LABS: Glucose Point of Care 319 mg/dL (70-110)
[2022-10-15 18:34] LABS: Glucose Point of Care 386 mg/dL (70-110)
== END 2022-10-15 06:28 | disposition home or self-care (01) ==
PROVIDERS: Emergency Provider Emergency Medicine; PCP Family Medicine
DX: R10.9 Unspecified abdominal pain (principal); Z79.82 Long term (current) use of aspirin; Z79.4 Long term (current) use of insulin; K80.20 Calculus of gallbladder without cholecystitis without obstruction; Z86.19 Personal history of other infectious and parasitic diseases; E11.9 Type 2 diabetes mellitus without complications; I10 Essential (primary) hypertension; Z87.891 Personal history of nicotine dependence
CPT/HCPCS: 36416; 74176; 80053; 81003; 82962; 83690; 85025; 96374; 96375; 99285; J1815; J2270; J2405; J7030

== ENCOUNTER → 2022-11-08 09:29 | Outpatient (BNVA) | payer OTHER, SELFPAY | PROVIDERS: PCP Family Medicine; Visit Provider Internal Medicine | DX: M54.9 Dorsalgia, unspecified (principal); M45.0 Ankylosing spondylitis of multiple sites in spine; M54.16 Radiculopathy, lumbar region; M53.3 Sacrococcygeal disorders, not elsewhere classified; Z11.1 Encounter for screening for respiratory tuberculosis; Z11.59 Encounter for screening for other viral diseases | CPT/HCPCS: 36415; 72040; 72072; 72100; 72202; 73120; 80053; 82550; 83516; 85025; 85651; 86160; 86162; 86200; 86235; 86255; 86376; 86480; 86704; 86803; 86812; 87340; 87522; 99204 ==

== ENCOUNTER 2022-11-29 20:17 | Emergency (ER) | payer OTHER, SELFPAY ==
[2022-11-29 20:22] VITALS: BP 166/83; PULSE 90; RESP 14; TEMP 36.5; O2SAT 97; BMI 35.9
--- NOTE | 2022-11-29 20:40 | ED_ITS ---
HPI - Recheck/Abnormal Lab/Rx General: Chief Complaint: Recheck/Abnormal Lab/Rx Stated Complaint: high sugar symptoms Time Seen by Provider: 11/29/22 20:37 Source: patient Mode of arrival: ambulatory Limitations: no limitations History of Present Illness: 67-year-old male who has a history of diabetes he takes insulin at home for his diabetes. He states that he feels like his insulin has been working his blood sugars been increasing states he has not taken any insulin in 3 days because he felt like his being on his feet read. States his blood sugars been running higher than typical today denies any vomiting he has had chronic diarrhea for months. Denies any pain anywhere denies any blurry vision. Review of Systems Const: Denies: fever(s) Eyes: Denies: blurry vision Card: Denies: chest pain Resp: Denies: dyspnea GI: Reports: diarrhea; Denies: nausea or vomiting : Denies: urinary frequency Musc: Denies: back pain Skin/Breast: Reports: erythema Neuro: Denies: headache(s) PFSH ED PFSH: Medical History 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 Colon polyps Diabetes mellitus Hx of glaucoma Hypertension Sacroiliac joint disease Surgical History H/O esophagogastroduodenoscopy History of cataract extraction History of colonoscopy (04/15/21) Sigmoid polyp, internal hemorrhoids History of hand surgery Social History Smoking and tobacco status: former smoker Alcohol intake: current Alcohol intake frequency: few times a month Substance/Drug Use: current Substance/Drug use frequency: daily Physical Exam Const: COMMON NORMALS: no acute distress, patient oriented x3 and healthy appearing HENMT: COMMON NORMALS: normocephalic and atraumatic HEAD & SCALP: normocephalic and atraumatic Eye: COMMON NORMALS: conjunctivae normal CONJUNCTIVA: Yes conjunctivae normal Neck/C-Spine: COMMON NORMALS: full ROM and supple Chest: COMMONS NORMALS: normal inspection of the chest and normal palpation of entire chest wall Resp: COMMON NORMALS: normal respiratory effort, No retractions, No use of accessory muscles and clear to auscultation bilaterally AUSCULTATION: clear t o auscultation bilaterally Cardio: COMMON NORMALS: regular rate, regular rhythm and No murmurs present (Cardio) RATE: regular rate RHYTHM: regular rhythm GI: COMMON NORMALS: Normal to inspection, nondistended, normoactive bowel sounds present, Soft to palpation, non-tender and no masses PALPATION: Yes Soft to palpation Extremity: COMMON NORMALS: normal to inspection and full ROM NARRATIVE EXTREMITY EXAM: No erythema or swelling to bilateral feet distal pulses intact no warmth to touch Neuro: COMMON NORMALS: patient oriented x3, moves all extremities and no focal motor deficits Psych: COMMON NORMALS: mental status grossly normal, Normal thought process present and cooperative THOUGHT PROCESS: Normal thought process present Skin: COMMON NORMALS: no rashes or lesions noted and no wounds GENERAL SKIN EXAM: no rashes or lesions noted Course Vital Signs: Vital signs: Vital Signs Temperature 97.7 F 11/29/22 20:22 Pulse Rate 90 11/29/22 20:22 Respiratory Rate 14 11/29/22 20:22 Blood Pressure 166/83 11/29/22 20:22 Pulse Oximetry 97 11/29/22 20:22 Oxygen Delivery Me thod Room Air 11/29/22 20:22 MDM - Recheck/Abnormal Lab/Rx Medical Decision Making Patient presents here with hyperglycemia he is well-appearing here blood sugars came down is not DKA instructed him he needs to take his insulin as prescribed he is to follow-up with PCP and return if worsening. Medical Records I reviewed the patient's medical records. Lab Data I reviewed the patient's lab results. 11/29/22 20:46 11/29/22 20:46 Laboratory Results WBC 9.3 10^3/uL (4.0-10.0) 11/29/22 20:46 RBC 6.38 10^6/uL (4.1-5.3) H 11/29/22 20:46 Hgb 17.0 g/dL (11.7-16.6) H 11/29/22 20:46 Hct 51.3 % (42.0-52.0) 11/29/22 20:46 MCV 80.4 fl (80-94) 11/29/22 20:46 MCH 26.6 pg (28.0-34.0) L 11/29/22 20:46 MCHC 33.1 g/dL (30.0-36.0) 11/29/22 20:46 RDW 13.3 % (12.1-15.1) 11/29/22 20:46 Plt Count 225 10^3/cmm (130-400) 11/29/22 20:46 MPV 10.8 fL (7.4-10.4) H 11/29/22 20:46 Neut % (Auto) 63.8 % 11/29/22 20:46 Lymph % (Auto) 26.2 % 11/29/22 20:46 Sierra % (Auto) 6.5 % 11/29/22 20:46 Eos % (Auto) 2.3 % 11/29/22 20:46 Baso % (Auto) 0.8 % 11/29/22 20:46 Neut # (Auto) 5.91 10^3/uL (1.8-7.7) 11/29/22 20:46 Lymph # (Auto) 2.4 10^3/uL (0.8-4.8) 11/29/22 20:46 Sierra # (Auto) 0.6 10^3/uL (0.2-0.9) 11/29/22 20:46 Eos # (Auto) 0.2 10^3/uL (0.0-0.8) 11/29/22 20:46 Baso # (Auto) 0.1 10^3/uL (0.0-0.1) 11/29/22 20:46 Nucleated RBC % (auto) 0 % 11/29/22 20:46 Nucleated RBCs # 0.0 /100WBC 11/29/22 20:46 Sodium 134 mmol/L (136-145) L 11/29/22 20:46 Potassium 4.2 mmol/L (3.5-5.1) 11/29/22 20:46 Chloride 96 mmol/L (98-107) L 11/29/22 20:46 Carbon Dioxide 21 mmol/L (22-29) L 11/29/22 20:46 Anion Gap 21.2 (5-19) H 11/29/22 20:46 BUN 21 mg/dL (8-23) 11/29/22 20:46 Creatinine 1.1 mg/dL (0.7-1.2) 11/29/22 20:46 GFR Calculation 66.6 mL/min (90-130) L 11/29/22 20:46 Glucose 350 mg/dL (65-115) H 11/29/22 20:46 POC Glucose 282 mg/dL (70-110) H 11/29/22 21:26 Calculated Osmolality 295 mOsm/kg (285-295) 11/29/22 20:46 Calcium 9.8 mg/dL (8.5-10.5) 11/29/22 20:46 Total Bilirubin 0.5 mg/dL (0.15-1.2) 11/29/22 20:46 AST 15 U/L (0-40) 11/29/22 20:46 ALT 30 U/L (0-41) 11/29/22 20:46 Alkaline Phosphatase 124 U/L (40-130) 11/29/22 20:46 Total Protein 8.6 g/dL (6.6-8.7) 11/29/22 20:46 Albumin 5.2 g/dL (3.5-5.2) 11/29/22 20:46 Globulin 3.4 g/dL (1.3-4.6) 11/29/22 20:46 Discharge Plan Discharge Patient Disposition: Home Clinical Impression: Hyperglycemia Condition: Stable Prescriptions: No Action aspirin 81 mg tablet,chewable 81 mg PO DAILY@0800 Levemir FlexTouch U-100 Insuln 100 unit/mL (3 mL) insulin pen 100 unit SUBCUT DAILY Rx Instructions: 100 units each morning fluticasone propionate [Allergy Relief (fluticasone)] 50 mcg/actuation spray,suspension 1 spray INTRANASAL DAILY PRN (Reason: UNKNOWN) Rx Instructions: administer into each nostril peg 3350-electrolytes [Golytely] 236-22.74-6.74 -5.86 gram recon soln 240 ml PO Q10M Qty: 4000 0RF Rx Instructions: until fecal effluent is clear multivitamin Tablet 1 tab PO DAILY@0800 Vitamin C 1 tab PO DAILY@0800 Vitamin D3 1 tab PO DAILY@0800 Jardiance 10 mg Tablet 10 mg PO DAILY omeprazole 10 mg Capsule,Delayed Release(Dr/Ec) 10 mg PO DAILY atorvastatin 40 mg Tablet 40 mg PO DAILY amlodipine 10 mg Tablet 10 mg PO DAILY alogliptin 25 mg Tablet 25 mg PO QAM [facility]325 mg tablet 1 tab PO Q6H PRN (Reason: pain) Qty: 14 0RF ondansetron 4 mg tablet,disintegrating 4 mg PO Q6H PRN (Reason: nausea and vomiting) Qty: 14 0RF Discharge Orders: Discharge ED (Routine); Ordered 11/29/22 Ordered By: Alberto Gloria Referrals: Misty Bedoya MD [Primary Care Provider] - 1-3 days Discharge Diet: Advance as tolerated Discharge Activity: Resume usual activity Patient Instructions: Diabetic Hyperglycemia (ED) Coding Level of Care Code ED Drywall Foreman for Urszula Krueger
[2022-11-29 20:45] LABS: Glucose Point of Care 377 mg/dL (70-110)
[2022-11-29 20:54] LABS: Basophils # 0.1 10^3/uL (0.0-0.1); Basophils % 0.8 %; Eosinophils # 0.2 10^3/uL (0.0-0.8); Eosinophils % 2.3 %; Hematocrit 51.3 % (42.0-52.0); Lymphocytes # 2.4 10^3/uL (0.8-4.8); Lymphocytes % 26.2 %; Mean Corpuscular HGB Conc 33.1 g/dL (30.0-36.0); Mean Corpuscular Hemoglobin 26.6 pg (28.0-34.0); Mean Corpuscular Volume 80.4 fl (80-94); Mean Platelet Volume 10.8 fL (7.4-10.4); Monocytes # 0.6 10^3/uL (0.2-0.9); Monocytes % 6.5 %; Neutrophils # 5.91 10^3/uL (1.8-7.7); Neutrophils % 63.8 %; Nucleated Red Blood Cells % 0 %; Platelet Count 225 10^3/cmm (130-400); Red Blood Count 6.38 10^6/uL (4.1-5.3); Red Cell Distribution Width 13.3 % (12.1-15.1); White Blood Count 9.3 10^3/uL (4.0-10.0)
[2022-11-29] MEDS: sodium chloride 0.9% 1,000 ML 999 ML IV (21:01)
[2022-11-29] MEDS: insulin regular-human 100 units/1 mL 10 UNIT IVP (21:02)
[2022-11-29 21:07] VITALS: BP 157/83; PULSE 91; O2SAT 90
[2022-11-29 21:13] LABS: Alanine Aminotransferase 30 U/L (0-41); Albumin Level 5.2 g/dL (3.5-5.2); Alkaline Phosphatase 124 U/L (40-130); Anion Gap 21.2 (5-19); Aspartate Amino Transferase 15 U/L (0-40); Blood Urea Nitrogen 21 mg/dL (8-23); Calcium 9.8 mg/dL (8.5-10.5); Carbon Dioxide 21 mmol/L (22-29); Chloride 96 mmol/L (98-107); Globulin 3.4 g/dL (1.3-4.6); Glomerular Filtration Rate 66.6 mL/min (90-130); Glucose 350 mg/dL (65-115); Osmolality Calculated 295 mOsm/kg (285-295); Potassium 4.2 mmol/L (3.5-5.1); Sodium 134 mmol/L (136-145); Total Bilirubin 0.5 mg/dL (0.15-1.2); Total Protein 8.6 g/dL (6.6-8.7)
[2022-11-29 21:29] LABS: Glucose Point of Care 282 mg/dL (70-110)
[2022-11-29 21:30] VITALS: BP 159/80; PULSE 87; O2SAT 91
[2022-11-29 22:00] VITALS: BP 159/81; PULSE 81; O2SAT 92
[2022-11-29 22:29] VITALS: BP 139/82; PULSE 87; RESP 18; O2SAT 92
== END 2022-11-29 22:30 | disposition home or self-care (01) ==
PROVIDERS: Emergency Provider Emergency Medicine; PCP Family Medicine
DX: E11.65 Type 2 diabetes mellitus with hyperglycemia (principal); Z79.82 Long term (current) use of aspirin; Z79.4 Long term (current) use of insulin; Z86.19 Personal history of other infectious and parasitic diseases; I10 Essential (primary) hypertension; Z87.891 Personal history of nicotine dependence
CPT/HCPCS: 36415; 36416; 80053; 82962; 85025; 96361; 96374; 99284; J1815; J7030

== ENCOUNTER → 2023-02-21 08:50 | Outpatient (BNVA) | payer OTHER, SELFPAY | PROVIDERS: PCP Family Medicine; Visit Provider Internal Medicine | DX: M53.3 Sacrococcygeal disorders, not elsewhere classified (principal); R76.8 Other specified abnormal immunological findings in serum | CPT/HCPCS: 99214 ==

== ENCOUNTER → 2023-02-28 10:24 | Outpatient (BNVA) | payer OTHER, SELFPAY | PROVIDERS: PCP Family Medicine; Visit Provider Podiatrist Foot & Ankle Surgery | DX: E11.8 Type 2 diabetes mellitus with unspecified complications (principal); E11.42 Type 2 diabetes mellitus with diabetic polyneuropathy; Z79.4 Long term (current) use of insulin; M20.41 Other hammer toe(s) (acquired), right foot; M20.42 Other hammer toe(s) (acquired), left foot; L84 Corns and callosities; I73.9 Peripheral vascular disease, unspecified; L60.3 Nail dystrophy; B18.2 Chronic viral hepatitis C; K74.60 Unspecified cirrhosis of liver | CPT/HCPCS: 11055; 11721; 99204 ==

== ENCOUNTER → 2023-03-16 14:58 | Outpatient (BNVA) | payer OTHER, SELFPAY | PROVIDERS: PCP Family Medicine; Visit Provider Orthopaedic Surgery | DX: M48.062 Spinal stenosis, lumbar region with neurogenic claudication (principal); M47.816 Spondylosis without myelopathy or radiculopathy, lumbar region | CPT/HCPCS: 72110; 99214 ==

== ENCOUNTER 2023-04-13 15:57 | Outpatient (CLI) | payer OTHER, SELFPAY ==
--- NOTE | 2023-04-13 16:00 | MR_ITS ---
WS: [id number] MRI LUMBAR SPINE NONCONTRAST HISTORY: Chronic back pain. LEFT lower extremity pain. Prior surgery in October 2021. COMPARISON: 09/17/2021 TECHNIQUE: Sagittal and axial multisequence imaging is submitted. Normal lumbar alignment with no compression fractures or marrow edema. Slight increase in the lower l umbar lordosis. Disc spaces and vertebral body heights are well-preserved. Conus terminates normally at L1-2 disc level. L1-L2: Normal. L2-L3: Mild annular disc bulging. No significant stenosis. Mild facet arthritis L3-L4: Mild annular disc bulging with encroachment upon the ventral thecal sac and subarticular reces ses. Small amount of fluid in the facet joints. Mild facet arthritis. No significant stenosis by L4-L5: Mild annular disc bulging with mild effacement of the ventral thecal sac. There is slight impi ngement upon the traversing L5 nerve roots. Similar to the prior study. There may be slightly greater contact on the LEFT L5 nerve root. Since the prior study LEFT hemilaminectomy defect and ligamentum flavum debridement. L5-S1: Mild annular disc bulging. Central broad-based disc herniation extends to the RIGHT. Moderate bilateral facet joint arthritis. Minimal contact on the S1 nerve roots, RIGHT greater than LEFT. Court y mild RIGHT foraminal narrowing. IMPRESSION: 1. No lumbar spine fracture. 2. Interval LEFT hemilaminectomy defect at L4-5. 3. Mild disc encroachment upon the subarticular recesses at L4-5 and L5-S1. No high-grade stenosis. S lightly greater contact on the LEFT L5 traversing nerve root as compared to 09/17/2021 4. Mild to moderate facet joint arthritis throughout the lumbar spine, most significant at L5-S1.
== END 2023-04-13 15:58 | disposition home or self-care (01) ==
LOC: RAD 15:58
PROVIDERS: PCP Family Medicine; Visit Provider Orthopaedic Surgery
DX: M47.817 Spondylosis without myelopathy or radiculopathy, lumbosacral region (principal); M48.062 Spinal stenosis, lumbar region with neurogenic claudication; M54.16 Radiculopathy, lumbar region; Z98.890 Other specified postprocedural states
CPT/HCPCS: 72148

== ENCOUNTER → 2023-05-30 10:46 | Outpatient (BNVA) | payer OTHER, SELFPAY | PROVIDERS: PCP Family Medicine; Visit Provider Podiatrist Foot & Ankle Surgery | DX: E11.42 Type 2 diabetes mellitus with diabetic polyneuropathy (principal); M20.41 Other hammer toe(s) (acquired), right foot; M20.42 Other hammer toe(s) (acquired), left foot; I73.9 Peripheral vascular disease, unspecified; L60.3 Nail dystrophy; B18.2 Chronic viral hepatitis C; K74.60 Unspecified cirrhosis of liver; L84 Corns and callosities; Z79.4 Long term (current) use of insulin | CPT/HCPCS: 11055; 11721 ==

== ENCOUNTER → 2023-06-16 09:27 | Outpatient (BNVA) | payer OTHER, SELFPAY | PROVIDERS: PCP Family Medicine; Visit Provider Internal Medicine | DX: M54.9 Dorsalgia, unspecified (principal); M53.3 Sacrococcygeal disorders, not elsewhere classified; R76.8 Other specified abnormal immunological findings in serum; Z79.899 Other long term (current) drug therapy; G62.9 Polyneuropathy, unspecified | CPT/HCPCS: 99214 ==

== ENCOUNTER → 2023-08-29 10:27 | Outpatient (BNVA) | payer OTHER, SELFPAY | PROVIDERS: PCP Family Medicine; Visit Provider Podiatrist Foot & Ankle Surgery | DX: E11.42 Type 2 diabetes mellitus with diabetic polyneuropathy (principal); M20.41 Other hammer toe(s) (acquired), right foot; M20.42 Other hammer toe(s) (acquired), left foot; I73.9 Peripheral vascular disease, unspecified; L60.3 Nail dystrophy; B18.2 Chronic viral hepatitis C; K74.60 Unspecified cirrhosis of liver; L84 Corns and callosities; Z79.4 Long term (current) use of insulin | CPT/HCPCS: 11055; 11721 ==

== ENCOUNTER 2023-08-30 08:17 | Outpatient (CLI) | payer OTHER, SELFPAY ==
--- NOTE | 2023-08-30 08:24 | US_ITS ---
WS: [id number] RIGHT UPPER QUADRANT ULTRASOUND HISTORY: HEPATITIS C HX-BEEN IN REMISSION SINCE 2014 COMPARISON: 06/09/2021 Liver: 15.8 cm in length. Normal size liver. Coarse echotexture throughout. There is a nodular surfac e of the liver consistent with cirrhotic liver. Similar to the prior study. No mass. No bile duct dil atation. Portal Vein: Normal hepatopetal flow with monophasic waveform. Gallbladder: Normally distended gallbladder with no stones or wall thickening. CBD: 0.3 cm Pancreas: Poorly visualized. Right kidney: 10.0 cm in length. Normal size and echogenicity. No hydronephrosis or mass. Aorta and IVC: Unremarkable abdominal aorta and IVC. No ascites. IMPRESSION: 1. Cirrhotic liver. No mass identified. No bile duct dilatation. 2. Negative gallbladder.
== END 2023-08-30 08:18 | disposition home or self-care (01) ==
LOC: RAD 08:17
PROVIDERS: PCP Family Medicine; Visit Provider Family Medicine
DX: K74.60 Unspecified cirrhosis of liver (principal)
CPT/HCPCS: 76705

== ENCOUNTER 2023-09-28 11:55 | Inpatient (IN) | payer OTHER, SELFPAY ==
[2023-09-28] VITALS (8 sets, daily range): BP systolic 127–211; BP diastolic 71–107; PULSE 67–78; RESP 16–18; TEMP 36.4–36.7; O2SAT 91–95; BMI 38.0
[2023-09-28 12:49] LABS: Basophils % 0.5 %; Eosinophils # 0.3 10^3/uL (0.0-0.8); Eosinophils % 4.9 %; Hematocrit 42.1 % (37-53); Lymphocytes # 1.9 10^3/uL (0.8-4.8); Mean Corpuscular Hemoglobin 27.2 pg (27-33); Mean Corpuscular Volume 82.4 fl (82-101); Monocytes # 0.5 10^3/uL (0.2-0.9); Monocytes % 7.4 %; Neutrophils # 3.75 10^3/uL (1.8-7.7); Neutrophils % 57.9 %; Nucleated Red Blood Cells % 0 %; Platelet Count 166 10^3/cmm (157-399); Red Blood Count 5.11 10^6/uL (3.85-5.65); Red Cell Distribution Width 12.8 % (12.1-15.1); White Blood Count 6.48 10^3/uL (3.29-11.43)
[2023-09-28 13:12] LABS: Alanine Aminotransferase 24 U/L (0-41); Albumin Level 4.6 g/dL (3.5-5.2); Alkaline Phosphatase 80 U/L (40-130); Anion Gap 13.5 (5-19); Aspartate Amino Transferase 14 U/L (0-40); Blood Urea Nitrogen 24 mg/dL (8-23); Calcium 9.6 mg/dL (8.5-10.5); Carbon Dioxide 27 mmol/L (22-29); Chloride 103 mmol/L (98-107); Creatinine Clr Calc Pharmacy 91.7622; Globulin 2.4 g/dL (1.3-4.6); Glomerular Filtration Rate 83.7 mL/min (90-130); Glucose 233 mg/dL (65-115); Osmolality Calculated 300 mOsm/kg (285-295); Potassium 4.5 mmol/L (3.5-5.1); Sodium 139 mmol/L (136-145); Total Bilirubin 0.5 mg/dL (0.15-1.2)
--- NOTE | 2023-09-28 14:07 | CTR_ITS ---
PROCEDURE INFORMATION: Exam: CT Abdomen And Pelvis Without Contrast Exam date and time: 09/28/2023 2:14 PM Age: 68 years old Clinical indication: Abdominal pain; Flank; Right; Additional info: Right flank pain TECHNIQUE: Imaging protocol: Computed tomography of the abdomen and pelvis without contrast. Radiation optimization: All CT scans at this facility use at least one of these dose optimization techniques: automated exposure control; mA and/or kV adjustment per patient size (includes targeted exams where dose is matched to clinical indication); or iterative reconstruction. COMPARISON: CT kidney stone [id number] 10/15/2022 4:25 AM RADIATION DOSE METRICS: Total DLP (mGy-cm): 1096.64 FINDINGS: Liver: No acute findings Gallbladder and bile ducts: No acute findings. Pancreas: No ductal dilation. Spleen: No splenomegaly. Adrenal glands: No mass. Kidneys and ureters: No stones or hydronephrosis. Stomach and bowel: No obstruction. Appendix: The appendix is mildly dilated up to 10 mm and fluid-filled but without significant surrounding inflammation or loculated collection. Coronal image 80 Intraperitoneal space: No free air. No significant fluid collection. Vasculature: No abdominal aortic aneurysm. Lymph nodes: No enlarged lymph nodes. Urinary bladder: Incompletely distended. Reproductive: No acute findings. Bones/joints: No acute findings. Soft tissues: No acute findings. CT/CT kidney stone [id number] IMPRESSION: Suspicion for early/developing acute appendicitis, if there is clinical correlation.
--- NOTE | 2023-09-28 14:08 | ED_ITS ---
HPI - Back Pain/Injury 2 General: Chief Complaint: Back Pain/Injury Stated Complaint: Kidney trouble Time Seen by Provider: 09/28/23 14:06 History of Present Illness: 68-year-old male patient comes in today for complaints of right flank pain radiating to his right inguinal area. Patient reports that he started having discomfort starting 5 days ago. Patient denies any change in activity. Patient appears nontoxic. Patient has diabetes, hypertension, chronic hep C, neuropathy, diabetes mellitus, hypertension, and SI joint disease. 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 Diabetes mellitus Hypertension Surgical History H/O esophagogastroduodenoscopy History of hand surgery History of cataract extraction History of colonoscopy (04/15/21) Sigmoid polyp, internal hemorrhoids Social History Smoking and tobacco/nicotine status: former use of tobacco/nicotine Alcohol intake: current Alcohol intake frequency: few times a month Substance/Drug Use: current Substance/Drug use frequency: daily Physical Exam 2 Const: COMMON NORMALS: alert HENMT: COMMON NORMALS: normocephalic HEAD & SCALP: normocephalic Neck/C-Spine: COMMON NORMALS: full ROM Chest: COMMONS NORMALS: normal inspection of the chest Resp: COMMON NORMALS: normal respiratory effort and clear to auscultation bilaterally AUSCULTATION: clear to auscultation bilaterally Cardio: COMMON NORMALS: regular rate RATE: regular rate GI: AUSCULTATION: Yes normoactive bowel sounds PALPATION: Yes Tenderness to palpation present (GI) Details: RLQ Back/Pelvis: COMMON NORMALS: thoracic and lumbar spine normal to inspection Extremity: COMMON NORMALS: full ROM Neuro: SENSORIUM/ORIENTATION: Yes alert Skin: COMMON NORMALS: turgor normal GENERAL SKIN EXAM: turgor normal Course 2 Vital Signs: Vital signs: Vital Signs Temperature 98.0 F 09/28/23 12:21 Pulse Rate 73 09/28/23 14:30 Respiratory Rate 18 09/28/23 12:21 Blood Pressure 152/94 09/28/23 15:00 Pulse Oximetry 95 09/28/23 15:00 Oxygen Delivery Me thod Room Air 09/28/23 15:00 MDM - Back Pain/Injury Medical Decision Making 68-year-old male patient comes in today for complaints of right flank pain radiating around to the right inguinal area. Patient reports pain started approximately 1 week ago. Patient reports no change in activity. Patient denies any blood in vomit or stool. Patient reports no blood in the urine. Patient appears nontoxic. Patient appears in mild to moderate pain. Differential diagnosis includes but not limited to appendicitis, diverticulitis, renal calculi, gallbladder disease, colitis. CBC was normal. CMP noted a blood glucose of 233, bun of [address] of the abdomen pelvis noted inflammation around the appendix suggesting of early developing acute appendicitis. 1502, reviewed exam with Dr. Landa, he reported understanding and will come and see the patient in the emergency department. 1521, Dr. Landa assessed patient and agreed to admit with surgical planning for am removal of appendix. Requested Internal medicine for consult due to patient chronic conditions. Dr. Juan notified of consult. Discussed with Dr. Thomas, ER attending, whom agreed to plan and admission Labs 09/28/23 12:42 09/28/23 12:42 Radiology Impressions Abdomen/Pelvis CT 09/28/23 14:07 IMPRESSION: Suspicion for early/developing acute appendicitis, if there is clinical correlation. Laboratory Results WBC 6.48 10^3/uL (3.29-11.43) 09/28/23 12:42 RBC 5.11 10^6/uL (3.85-5.65) 09/28/23 12:42 Hgb 13.90 g/dL (11.27-16.99) 09/28/23 12:42 Hct 42.1 % (37-53) 09/28/23 12:42 MCV 82.4 fl (82-101) 09/28/23 12:42 MCH 27.2 pg (27-33) 09/28/23 12:42 MCHC 33.0 g/dL (30-55) 09/28/23 12:42 RDW 12.8 % (12.1-15.1) 09/28/23 12:42 Plt Count 166 10^3/cmm (157-399) 09/28/23 12:42 MPV 11.0 fL (7.4-10.4) H 09/28/23 12:42 Neut % (Auto) 57.9 % 09/28/23 12:42 Lymph % (Auto) 29.0 % 09/28/23 12:42 Pender % (Auto) 7.4 % 09/28/23 12:42 Eos % (Auto) 4.9 % 09/28/23 12:42 Baso % (Auto) 0.5 % 09/28/23 12:42 Neut # (Auto) 3.75 10^3/uL (1.8-7.7) 09/28/23 12:42 Lymph # (Auto) 1.9 10^3/uL (0.8-4.8) 09/28/23 12:42 Pender # (Auto) 0.5 10^3/uL (0.2-0.9) 09/28/23 12:42 Eos # (Auto) 0.3 10^3/uL (0.0-0.8) 09/28/23 12:42 Baso # (Auto) 0.0 10^3/uL (0.0-0.1) 09/28/23 12:42 Nucleated RBC % (auto) 0 % 09/28/23 12:42 Nucleated RBCs # 0.0 /100WBC 09/28/23 12:42 Sodium 139 mmol/L (136-145) 09/28/23 12:42 Potassium 4.5 mmol/L (3.5-5.1) 09/28/23 12:42 Chloride 103 mmol/L (98-107) 09/28/23 12:42 Carbon Dioxide 27 mmol/L (22-29) 09/28/23 12:42 Anion Gap 13.5 (5-19) 09/28/23 12:42 BUN 24 mg/dL (8-23) H 09/28/23 12:42 Creatinine 0.9 mg/dL (0.7-1.2) 09/28/23 12:42 GFR Calculation 83.7 mL/min (90-130) L 09/28/23 12:42 Glucose 233 mg/dL (65-115) H 09/28/23 12:42 Calculated Osmolality 300 mOsm/kg (285-295) H 09/28/23 12:42 Calcium 9.6 mg/dL (8.5-10.5) 09/28/23 12:42 Total Bilirubin 0.5 mg/dL (0.15-1.2) 09/28/23 12:42 AST 14 U/L (0-40) 09/28/23 12:42 ALT 24 U/L (0-41) 09/28/23 12:42 Alkaline Phosphatase 80 U/L (40-130) 09/28/23 12:42 Total Protein 7.0 g/dL (6.6-8.7) 09/28/23 12:42 Albumin 4.6 g/dL (3.5-5.2) 09/28/23 12:42 Globulin 2.4 g/dL (1.3-4.6) 09/28/23 12:42 All radiology interpretation(s) finalized by discharge Discharge Plan Discharge Patient Disposition: Admitted As Inpatient Clinical Impression: Appendicitis Qualifiers: Appendicitis type: acute appendicitis Acute appendicitis type: with localized peritonitis Appendicitis gangrene presence: without gangrene Appendicitis perforation presence: without perforation Appendicitis abscess presence: without abscess Qualified Code(s): K35.30 - Acute appendicitis with localized peritonitis, without perforation or gangrene Condition: Stable Coding Level of Care Code ED Staff Trainer for Urszula Krueger
--- NOTE | 2023-09-28 14:28 | PC.PHAR ---
[facility] VERIFIED MEDICATIONS DUE TO PROBLEMS WITH FAXING MED LIST. 14 MEDICATIONS DC'D SINCE 2021 (LAST UPDATED MED LIST).ALOGLIPTIN 25, AMLODIPINE 10, ASPIRIN 81, SIwpM 5, FLONASE,, JARDIANCE 10, LEVIMIR FLEX TOUCH, MULTIVITAMIN, ONDANSETRON 4, SULFASALAZINE 500, VITAMIN C, VITAMIN D3. CURRENT MEDS WERE GIVEN VERBALLY AND ADDED PER PAT[facility] ZEE BLUM. 09/28/23
[2023-09-28] MEDS: ketorolac 30 mg/mL INJ 15 MG IVP ×2 (14:52→20:01)
[2023-09-28] MEDS: fentaNYL 50 mcg/mL INJ 2mL 100 MCG IVP (14:52)
--- NOTE | 2023-09-28 15:32 | P.HP_ITS ---
Providers/Chief Complaint 2 Primary Care Provider: Misty Bedoya MD Chief Complaint: Kidney trouble History of Present Illness Kalli Dexter is a 68 year old male who presents to the hospital complaining of about 1 week of right-sided abdominal pain. Per patient report about 5 days ago he started to have some right-sided abdominal pain that initially subsided but over the last 24 hours it has returned and is located in the right lower quadrant and right flank. Workup in the emergency department was mostly unremarkable but the CT scan of the abdomen showed evidence of dilated appendix concerning for early acute appendicitis. Review of Systems 2 Narrative: 10 point review systems done negative ot herwise noted in HPI Medications/Allergies Home Medications Medication Instructions Recorded Confirmed Last Taken Type omeprazole 10 mg capsule,delayed 10 mg PO QAM 10/22/21 09/28/23 05/25/22 History release hydrocodone 7.5 mg-acetaminophen 1 tab PO Q8H PRN Pain 02/21/23 09/28/23 Unknown History 325 mg tablet Diabetic shoes with custom insoles #1 ea 02/28/23 09/28/23 Unknown Rx urea 40 % topical cream 1 applic topical TID #198 grams 02/28/23 09/28/23 Unknown Rx magnesium oxide 400 mg (241.3 mg 400 mg PO DAILY 30 days #30 tabs 03/01/23 09/28/23 Unknown Rx magnesium) tablet atorvastatin 80 mg tablet 40 mg PO QPM 09/28/23 09/28/23 Unknown History clotrimazole 1 % topical solution 1 applic topical TID fungal 09/28/23 09/28/23 Unknown History infection furosemide 20 mg tablet 20 mg PO QAM 09/28/23 09/28/23 Unknown History insulin glargine 100 unit/mL 75 unit SUBCUT DAILY 09/28/23 09/28/23 Unknown History subcutaneous solution insulin regular human 100 unit/mL 10 unit SUBCUT TID 09/28/23 09/28/23 Unknown History injection solution (Novolin R Regular U-100 Insulin) lisinopril 10 1 tab PO QAM 09/28/23 09/28/23 Unknown History mg-hydrochlorothiazide 12.5 mg tablet omega 6-iyy-yyp-fish oil 1,000 mg 2 cap PO BID 09/28/23 09/28/23 Unknown History (120 mg-180 mg) capsule (Fish Oil) pioglitazone 30 mg tablet 30 mg PO DAILY 09/28/23 09/28/23 Unknown History semaglutide 0.25 mg or 0.5 mg (2 0.25 mg SUBCUT Q7D 09/28/23 09/28/23 Unknown History mg/3 mL) subcutaneous pen injector (Ozempic) Allergies Allergy/AdvReac Type Severity Reaction Status Date / Time erythromycin base Allergy Unknown Verified 08/29/23 10:52 PFSH Acute 2 PFSH: Medical History Neuropathy Sacroiliac joint disease Colon polyps Hx of glaucoma 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 Diabetes mellitus Hypertension Surgical History H/O esophagogastroduodenoscopy History of hand surgery History of cataract extraction History of colonoscopy (04/15/21) Sigmoid polyp, internal hemorrhoids Social History Smoking and tobacco/nicotine status: former use of tobacco/nicotine Alcohol intake: current Alcohol intake frequency: few times a month Substance/Drug Use: current Substance/Drug use frequency: daily Vitals/I&O/Wt Last Vital Signs Temp 98.0 F 09/28/23 12:21 Pulse 73 09/28/23 14:30 Resp 18 09/28/23 12:21 BP 152/94 09/28/23 15:00 Pulse Ox 95 09/28/23 15:00 O2 Del Method Room Air 09/28/23 15:00 Weight last 48 hrs Weight 243 lb Physical Exam 2 Narrative: General : Patient is well developed , no acute distress, oriented x3 Head : Normal cephalic, a-traumatic. Nose : Mucous membranes are without erythema. Lungs : Equal chest rise bilaterally, no use of accessory muscles, trachea is midline. CV : Rate and rhythm are normal. Abdomen : Soft, ND, no g/r/m, there is tenderness in the right lower quadrant Extremities : No edema. Upper extremities are normal bilaterally. Back : non-tender to palpation, no CVA tenderness. Data 09/28/23 12:42 09/28/23 12:42 A&P Assessment and plan (1) Appendicitis: Qualifiers: Acute appendicitis type: with localized peritonitis Appendicitis abscess presence: without abscess Appendicitis gangrene presence: without gangrene Appendicitis perforation presence: without perforation Appendicitis type: acute appendicitis Qualified Code(s): K35.30 - Acute appendicitis with localized peritonitis, without perforation or gangrene Plan 68-year-old male with multiple medical comorbidities who presents to the hospital with abdominal pain and a CT scan that shows evidence of acute appendicitis. After review of all available clinical data and discussion with the patient we have decided to admit him for overnight antibiotics and to proceed with laparoscopic appendectomy in the morning. Have discussed all the risk and benefits of the procedure including the risk of bleeding, infection, abscess formation, need for additional procedures, transfer to open procedure, injury to the adjacent structures including the colon the small bowel and the ureter, major intra-abdominal bleeding, injury to other structures during entry, need for additional interventions. Patient shows understanding and wishes to proceed. We will start the patient on IV antibiotics and pain control. I will request a medical consultation as patient has multiple medical comorbidities and takes several medications. Patient will remain n.p.o. after midnight. Attestations 2 Medical Necessity Statement*: Patient will require 24 hours of hospital stay for management of acute appendicitis Coding Level of Care Code 45076 Diagnoses Appendicitis K35.30 Acute appendicitis type: with localized peritonitis Appendicitis abscess presence: without abscess Appendicitis gangrene presence: without gangrene Appendicitis perforation presence: without perforation Appendicitis type: acute appendicitis
[2023-09-28 15:42] LABS: Add Urine Microscopic? NO; Charge for UA Resulting for Rev
[2023-09-28 16:01] LABS: Urine Appearance Clear (CLEAR); Urine Color Light yellow (Yellow)
[2023-09-28 16:02] LABS: Bilirubin Urine Neg (Negative); Blood Urine Neg (Negative); Glucose Urine UA Norm (Normal); Ketones Urine Negative (Negative); Leukocyte Esterase Urine Negative (Negative); Nitrate Urine Negative (Negative); Protein Urine Neg (Negative); Specific Gravity, Urine 1.015 (1.005-1.030); Urobilinogen Urine Norm (Negative); pH Urine 5 (5-7)
[2023-09-28] MEDS: piperacillin-tazobactam 3.375 GM in sodium chloride 0.9% (plus) 50 ML IV ×2 (16:17→21:57)
[2023-09-28 17:23] LABS: Glucose Point of Care 117 mg/dL (70-110)
--- NOTE | 2023-09-28 17:32 | P.CONIM_ITS ---
Providers/Reason For Consult 2 Consulting Physician/Specialty*: Emperatriz Juan MD/ hospitalist Reason for Consult*: medical comorbidities Requesting Physician: Jaswinder Landa MD Attending Physician: Jaswinder Landa MD Primary Care Provider: Misty Bedoya MD History of Present Illness History of Present Illness Kalli Dexter is a 68 year old male with a past medical history of diabetes mellitus, hypertension, Guirgius, presenting to the hospital with chief complaints of abdominal pain. He was found to have a dilated appendix concerning for early acute appendicitis. Patient is planned to undergo surgery tomorrow. Medicine service is consulted with regards to medical comorbidities, antihypertensive and diabetes management. Denies any current chest pain dyspnea palpitations or syncope. Review of Systems 2 General: Reports: 10 or more systems reviewed and unremarkable except in HPI and below Const: Denies: fever(s), chills or body aches Eyes: Denies: change in vision, blurry vision or photophobia ENMT: Reports: hoarseness; Denies: throat pain, enlarged tonsils, odynophagia or nasal congestion Card: Denies: chest pain, palpitations, irregular heart rhythm, edema, swelling of feet/ankles, lightheadedness, pre-syncope, dyspnea on exertion or orthopnea Resp: Denies: dyspnea, productive cough, non-productive cough, wheezing, stridor, pain on inspiration, change in phlegm color, hemoptysis or chest congestion GI: Denies: abdominal pain, nausea, vomiting, hematemesis, coffee ground emesis, dysphagia, heartburn, diarrhea, constipation, GI cramping, change in stool character, hematochezia or melena : Denies: flank pain, dysuria, urinary frequency, urinary urgency, urinary hesitancy or hematuria Musc: Denies: neck pain, back pain, extremity pain, joint swelling, joint warmth or deformity Neuro: Denies: headache(s), numbness in extremities, weakness in extremities, sensory changes, difficulty walking, frequent falls, dizziness, vertigo, behavioral changes, Slurred speech present or seizure-like activity Psych: Denies: anxiety, depression, suicidal ideation or homicidal ideation Endo: Denies: polyuria, polydipsia, tired all the time, cold intolerance or hot flashes Anibal/Lymph: Denies: easy bruising or easy bleeding Medications/Allergies Home Medications Medication Instructions Recorded Confirmed Last Taken Type omeprazole 10 mg capsule,delayed 10 mg PO QAM 10/22/21 09/28/23 09/28/23 History release Diabetic shoes with custom insoles #1 ea 02/28/23 09/28/23 Unknown Rx urea 40 % topical cream 1 applic topical TID #198 grams 02/28/23 09/28/23 Unknown Rx magnesium oxide 400 mg (241.3 mg 400 mg PO DAILY 30 days #30 tabs 03/01/23 09/28/23 09/28/23 Rx magnesium) tablet atorvastatin 80 mg tablet 40 mg PO QPM 09/28/23 09/28/23 09/28/23 History clotrimazole 1 % topical solution 1 applic topical TID fungal 09/28/23 09/28/23 Unknown History infection furosemide 20 mg tablet 20 mg PO QAM 09/28/23 09/28/23 09/28/23 History insulin glargine 100 unit/mL 75 unit SUBCUT DAILY 09/28/23 09/28/23 Unknown History subcutaneous solution insulin regular human 100 unit/mL 10 unit SUBCUT TID 09/28/23 09/28/23 Unknown History injection solution (Novolin R Regular U-100 Insulin) lisinopril 10 1 tab PO QAM 09/28/23 09/28/23 09/28/23 History mg-hydrochlorothiazide 12.5 mg tablet omega 7-jfw-jdy-fish oil 1,000 mg 2 cap PO BID 09/28/23 09/28/23 09/28/23 History (120 mg-180 mg) capsule (Fish Oil) pioglitazone 30 mg tablet 30 mg PO DAILY 09/28/23 09/28/23 09/28/23 History semaglutide 0.25 mg or 0.5 mg (2 0.25 mg SUBCUT Q7D 09/28/23 09/28/23 09/28/23 History mg/3 mL) subcutaneous pen injector (Ozempic) amoxicillin 875 mg-potassium 1 tab PO BID #10 tabs 09/29/23 Unknown Rx clavulanate 125 mg tablet meloxicam 7.5 mg tablet 7.5 mg PO DAILY #7 tabs 09/29/23 Unknown Rx oxycodone 5 mg tablet 5 mg PO Q8H PRN pain #20 tabs 09/29/23 Unknown Rx polyethylene glycol 3350 17 gram 17 g PO DAILY 7 days #7 ea 09/29/23 Unknown Rx oral powder packet (Miralax) Allergies Allergy/AdvReac Type Severity Reaction Status Date / Time erythromycin base Allergy Unknown Verified 08/29/23 10:52 PFSH Acute 2 PFSH: Medical History (Updated 09/29/23 @ 17:27 by Emperatriz Juan MD) Neuropathy Sacroiliac joint disease Colon polyps Hx of glaucoma 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 Diabetes mellitus Hypertension Surgical History H/O esophagogastroduodenoscopy History of hand surgery History of cataract extraction History of colonoscopy (04/15/21) Sigmoid polyp, internal hemorrhoids Social History Smoking and tobacco/nicotine status: former use of tobacco/nicotine Alcohol intake: current Alcohol intake frequency: few times a month Substance/Drug Use: current Substance/Drug use frequency: daily Vitals/I&O/Wt Last Vital Signs Temp 98.0 F 09/28/23 12:21 Pulse 73 09/28/23 14:30 Resp 18 09/28/23 12:21 BP 152/94 09/28/23 15:00 Pulse Ox 95 09/28/23 15:00 O2 Del Method Room Air 09/28/23 16:38 09/28/23 09/28/23 09/28/23 06:59 14:59 22:59 Intake Total 50 / 50 Balance 50 / 50 Weight last 48 hrs Weight 110.223 kg Weight 110.223 kg Physical Exam 2 Narrative: General: No acute distress, AO x3 HEENT: PERRLA, pupils bilaterally equal and reactive, pallors not present Chest: Normal vesicular breath sounds, no added sounds, equal good air entry bilaterally CVS: S1-S2 regular, no murmurs, no tachycardia, no gallops, no rubs Abdomen: Soft, nontender, no organomegaly, bowel sounds present Neuro: No focal deficits, no facial deformity, AO x3, power 5/5 in all limbs Data 09/29/23 07:12 09/28/23 12:42 A&P Assessment and plan (1) Appendicitis: Management per surgery. Planned surgical intervention tomorrow. Pain management with as needed morphine 2 mg IV every 4 hours. Qualifiers: Acute appendicitis type: with localized peritonitis Appendicitis abscess presence: without abscess Appendicitis gangrene presence: without gangrene Appendicitis perforation presence: without perforation Appendicitis type: acute appendicitis Qualified Code(s): K35.30 - Acute appendicitis with localized peritonitis, without perforation or gangrene (2) Diabetes mellitus: Insulin sliding scale high-dose, while patient remains in the hospital. Likely to be n.p.o. starting midnight. (3) Hypertension: Hold HCTZ?lisinopril while NPO. Blood pressure management with hydralazine 10 mg IV every 4 hours as needed. Consult Attestations 2 Medical Necessity Statement: Per admitting Coding Level of Care Code Acute Code for [facility] Diagnoses Appendicitis K35.30 Acute appendicitis type: with localized peritonitis Appendicitis abscess presence: without abscess Appendicitis gangrene presence: without gangrene Appendicitis perforation presence: without perforation Appendicitis type: acute appendicitis Diabetes mellitus E11.9 Hypertension I10
[2023-09-28] MEDS: morphine 4 mg/mL SDV 1 mL 2 MG IVP ×2 (18:16→21:57)
[2023-09-28 20:38] LABS: Glucose Point of Care 189 mg/dL (70-110)
[2023-09-29] VITALS (19 sets, daily range): BP systolic 155–194; BP diastolic 68–104; PULSE 61–91; RESP 11–18; TEMP 36.1–37.1; O2SAT 91–100
--- NOTE | 2023-09-29 00:40 | PC.NURSE ---
Addendum entered by Tammy Whitt RN 09/29/23 00:47: Dilaudid 0.4 mg q6h PRN ordered. Original Note: Dr. Germain notified of the following: Patient is here for appendicitis and is NPO for surgery tomorrow. He has a hospitalist consult. He has 2 mg PRN Morphine q4h and scheduled Toradol 15 mg q6h. He says the morphine only lasts about an hour and is asking for something that will last longer. He is currently rating his pain 10/10.
[2023-09-29] MEDS: HYDROmorphone 1 mg/mL INJ 1 mL 0.400000000000000022 MG IVP ×2 (00:54→06:44)
[2023-09-29] MEDS: ketorolac 30 mg/mL INJ 15 MG IVP ×3 (00:54→13:26)
[2023-09-29 06:25] LABS: Glucose Point of Care 246 mg/dL (70-110)
[2023-09-29] MEDS: piperacillin-tazobactam 3.375 GM in sodium chloride 0.9% (plus) 50 ML IV (06:44)
[2023-09-29 07:27] LABS: Basophils % 0.4 %; Eosinophils # 0.2 10^3/uL (0.0-0.8); Eosinophils % 2.9 %; Hematocrit 40.5 % (37-53); Lymphocytes # 1.2 10^3/uL (0.8-4.8); Lymphocytes % 17.1 %; Mean Corpuscular HGB Conc 32.8 g/dL (30-55); Mean Corpuscular Hemoglobin 27.3 pg (27-33); Monocytes # 0.5 10^3/uL (0.2-0.9); Monocytes % 7.2 %; Neutrophils # 4.93 10^3/uL (1.8-7.7); Neutrophils % 72.1 %; Nucleated Red Blood Cells % 0 %; Platelet Count 151 10^3/cmm (157-399); Red Blood Count 4.88 10^6/uL (3.85-5.65); Red Cell Distribution Width 12.8 % (12.1-15.1); White Blood Count 6.84 10^3/uL (3.29-11.43)
[2023-09-29] MEDS: insulin lispro 100 unit/1 mL SUBCUT (08:18)
[2023-09-29] MEDS: lactated ringers 1,000 ML 125 ML IV (08:18)
--- NOTE | 2023-09-29 09:14 | PC.CHAP ---
Pastoral Care Encounter/Spiritual Assessment Type of Contact [] Declined medical technologist blood bank visit [] Patient/Family/Request visit [] Outpatient visit [] Follow-up visit [] Physician referral [] Code/Alert [x] Routine visit [] Staff referral [] Actively dying [] Patient sleeping [] Family support [] [] Out of room [] Palliative care [] [] Receiving care in room [] Pre-surgical visit [] Trauma [] Long length of stay [] ICU visit [] Other: Relational/Emotional Strength [x] Patient feels connected with others/family/visitors/staff [] Distress [] Loneliness/isolation [] Abandonment Spirituality of Patient [x] Person of Helen [] Attends Mormon of their Helen [x] Believes in Prayer [] Reads Bible or Sabianism materials [] There are Spiritual issues to be addressed Photographer Interventions [x] Prayer [x] Active listening [] Non-anxious presence [x] Spiritual/emotional support [] Crisis/trauma care [] Spiritual counseling [] Bereavement support [] Provided bereavement packet [] Provided Bible/devotional materials [] Provided toy/stuffed animal, coloring book to patient or family member [] Provided Communion [] Anointing/[place] [] Salvation [x] Completed spiritual assessment [] Other: Impact on Illness or Injury [] Angry [] Fearful [] Anxious [] Often cries [] Exhaustion [] Unable to work [] Unable to attend hinduism [] Unable to walk/stand [] Unable to read [] Unable to drive [] Unable to eat/drink [] Unable to sleep [] Unable to be with family [] Patient intubated [] Other: Summary Time spent with patient 5 min
[2023-09-29 11:14] LABS: Glucose Point of Care 178 mg/dL (70-110)
--- NOTE | 2023-09-29 11:25 | W.PM.OPSUD ---
Surgery/Procedure H&P Update DATE OF PROCEDURE: September 29, 2023 DATE H&P PERFORMED: 09/28/23 H&P UPDATE INFORMATION: I have reviewed H&P completed within last 30 days, I have examined patient prior to procedure, No changes to prior documentation and H&P is in [facility] EMR on date indicated PLANNED PROCEDURE: Operation Date: 09/29/23 14:20 Proposed Procedures p Laparoscopic Appendectomy(Not Applicable) - Jaswinder Landa MD
[2023-09-29] MEDS: hyDRALAzine 20 mg/mL INJ 1 mL 10 MG IVP ×2 (12:30→15:54)
[2023-09-29] MEDS: fentaNYL 50 mcg/mL INJ 2mL IVP ×2 (13:41→15:59)
--- NOTE | 2023-09-29 13:46 | P.ANESASSM_ITS ---
Pre-Anesthetic Assessment Height/Weight: Height 1.7 m Weight 107.592 kg Temp Pulse Resp BP Pulse Ox O2 Del Method 98.7 F 77 16 194/89 95 Room Air 09/29/23 13:19 09/29/23 13:19 09/29/23 13:41 09/29/23 13:19 09/29/23 13:41 09/28/23 17:07 Operation Date: 09/29/23 14:20 Proposed Procedures p Laparoscopic Appendectomy(Not Applicable) - Jaswinder Landa MD Familial anesthetic complications: None Was Beta Tom taken within 24 hours: N/A Was Clonidine taken within 24 hours: N/A Last intake: > 8 hrs Social No alcohol and No tobacco Exam alert, oriented x 3, clear to auscultation bilaterally and regular rate & rhythm Airway Mallampati: Class IV Dentition: false CV/HEM Hypertension Hepatic Hepatitis (C) GI Gastroesophageal Reflux Disease Metabolic Morbid Obesity Took Ozempic on Monday - RSI Anesthetic Plan ASA status: 3 Anesthesia: General Other: RSI for ozempic on monday Risk of > 500 ml blood loss (7ml/kg in children): No Medications/Allergies Home Medications Medication Instructions Recorded Confirmed Last Taken Type omeprazole 10 mg capsule,delayed 10 mg PO QAM 10/22/21 09/28/23 09/28/23 History release hydrocodone 7.5 mg-acetaminophen 1 tab PO Q8H PRN Pain 02/21/23 09/28/23 09/28/23 History 325 mg tablet Diabetic shoes with custom insoles #1 ea 02/28/23 09/28/23 Unknown Rx urea 40 % topical cream 1 applic topical TID #198 grams 02/28/23 09/28/23 Unknown Rx magnesium oxide 400 mg (241.3 mg 400 mg PO DAILY 30 days #30 tabs 03/01/23 09/28/23 09/28/23 Rx magnesium) tablet atorvastatin 80 mg tablet 40 mg PO QPM 09/28/23 09/28/23 09/28/23 History clotrimazole 1 % topical solution 1 applic topical TID fungal 09/28/23 09/28/23 Unknown History infection furosemide 20 mg tablet 20 mg PO QAM 09/28/23 09/28/23 09/28/23 History insulin glargine 100 unit/mL 75 unit SUBCUT DAILY 09/28/23 09/28/23 Unknown History subcutaneous solution insulin regular human 100 unit/mL 10 unit SUBCUT TID 09/28/23 09/28/23 Unknown History injection solution (Novolin R Regular U-100 Insulin) lisinopril 10 1 tab PO QAM 09/28/23 09/28/23 09/28/23 History mg-hydrochlorothiazide 12.5 mg tablet omega 5-sqk-mhs-fish oil 1,000 mg 2 cap PO BID 09/28/23 09/28/23 09/28/23 History (120 mg-180 mg) capsule (Fish Oil) pioglitazone 30 mg tablet 30 mg PO DAILY 09/28/23 09/28/23 09/28/23 History semaglutide 0.25 mg or 0.5 mg (2 0.25 mg SUBCUT Q7D 09/28/23 09/28/23 09/28/23 History mg/3 mL) subcutaneous pen injector (Ozempic) Allergies Allergy/AdvReac Type Severity Reaction Status Date / Time erythromycin base Allergy Unknown Verified 08/29/23 10:52 Current Medications Generic Name Dose Route Start Last Admin Trade Name Freq PRN Reason Stop Dose Admin Fentanyl 50 mcg 09/29/23 13:17 09/29/23 13:41 Fentanyl 50 Mcg/Ml Inj 2ml IVP 50 mcg Q10M PRN Administration Preop Pain Hydralazine HCl 10 mg 09/28/23 17:30 09/29/23 12:30 Hydralazine 20 Mg/Ml Inj 1 Ml IVP 10 mg Q4H PRN Administration SBP > 160 Hydromorphone HCl 0.4 mg 09/29/23 00:47 09/29/23 06:44 Hydromorphone 1 Mg/Ml Inj 1 Ml IVP 0.4 mg Q6H PRN Administration SEVERE PAIN Piperacillin Sod/Tazobactam 50 mls @ 12.5 mls/hr 09/28/23 23:00 09/29/23 10:55 Sod 3.375 gm/ Sodium Chloride IV Infused Q8H SCOTTIE Infusion Lactated Ringer's 1,000 mls @ 125 mls/hr 09/29/23 07:00 09/29/23 08:18 Lactated Ringers IV 125 mls/hr .Q8H SCOTTIE Administration Insulin Human Lispro 0 unit 09/28/23 18:00 09/29/23 11:39 Insulin Lispro 100 Unit/1 Ml SUBCUT Not Given WM&BEDTIME [facility] Protocol Ketorolac Tromethamine 15 mg 09/28/23 20:00 09/29/23 13:26 Ketorolac 30 Mg/Ml Inj IVP 10/03/23 19:59 15 mg Q6H SCOTTIE Administration Morphine Sulfate 2 mg 09/28/23 18:11 09/28/23 21:57 Morphine 4 Mg/Ml Sdv 1 Ml IVP 2 mg Q4H PRN Administration SEVERE PAIN PFSH Anesthesia Medical History Neuropathy Sacroiliac joint disease Colon polyps Hx of glaucoma 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 Diabetes mellitus Hypertension Surgical History H/O esophagogastroduodenoscopy History of hand surgery History of cataract extraction History of colonoscopy (04/15/21) Sigmoid polyp, internal hemorrhoids Social History Smoking and tobacco/nicotine status: former use of tobacco/nicotine Alcohol intake: current Alcohol intake frequency: few times a month Substance/Drug Use: current Substance/Drug use frequency: daily Data Anesthesia 09/29/23 07:12 09/28/23 12:42 Short CBC 09/28/23 09/29/23 Range/Units 12:42 07:12 WBC 6.48 6.84 (3.29-11.43) 10^3/uL Hgb 13.90 13.30 (11.27-16.99) g/dL Hct 42.1 40.5 (37-53) % MCV 82.4 83.0 (82-101) fl Plt Count 166 151 L (157-399) 10^3/cmm Neut % (Auto) 57.9 72.1 % Neut # (Auto) 3.75 4.93 (1.8-7.7) 10^3/uL BMP 09/28/23 12:42 Sodium 139 Potassium 4.5 Chloride 103 Carbon Dioxide 27 BUN 24 H Creatinine 0.9 Glucose 233 H Calcium 9.6 Liver Function 09/28/23 Range/Units 12:42 Total Bilirubin 0.5 (0.15-1.2) mg/dL AST 14 (0-40) U/L ALT 24 (0-41) U/L Alkaline Phosphatase 80 (40-130) U/L Albumin 4.6 (3.5-5.2) g/dL Urine 09/28/23 Range/Units 15:20 Urine Color Light yellow (Yellow) Urine Appearance Clear (CLEAR) Urine pH 5 (5-7) Ur Specific [place] 1.015 (1.005-1.030) Urine Protein Neg (Negative) Urine Glucose (UA) Norm (Normal) Urine Ketones Negative (Negative) Urine Nitrate Negative (Negative) Urine Bilirubin Neg (Negative) Ur Leukocyte Esterase Negative (Negative) Cardiac Studies: 2 No Data to Display
[2023-09-29] MEDS: sodium chloride 0.9% 1,000 ML 30 ML IV (13:48)
--- NOTE | 2023-09-29 13:57 | PC.NURSE ---
OR nurse assumed care of pt at approximately 1300. This nurse will d/c pt in PACU following surgery.
[2023-09-29] MEDS: ceFAZolin 2,000 MG in sodium chloride 0.9% (plus) 50 ML 100 MG IV (14:20)
[2023-09-29] MEDS: lidocaine-epi 1% 20 mL INJ INJECTION (14:50)
--- NOTE | 2023-09-29 15:26 | PM.OP ---
Operative Report Date of procedure: September 29, 2023 Pre-op diagnosis: Acute appendicitis Post-op diagnosis: Acute appendicitis Post-op findings: There was an inflamed and dilated appendix laying in of retrocecal position on the right paracolic gutter Procedure done: Laparoscopic appendectomy Implants: None Specimens removed/disposition: Appendix Surgeon: Jaswinder Landa MD Enrichment Assistant: MARY OR Staff Estimated blood loss: 10 Complications: none Brief History: 68-year-old male who presented to the hospital complaining of abdominal pain, CT scan of the abdomen pelvis show evidence of a dilated appendix with signs of early appendicitis. After discussion of all risk and benefits as documented in my preop note we decided to proceed with laparoscopic appendectomy. Procedure: Patient was brought into the OR. He was placed in a supine position. General esthesia was given. The abdomen was prepped and draped in the usual sterile fashion. Timeout was conducted. The abdomen was accessed via a 5 mm Optiview trocar with an incision at Vee's point, initial pneumoperitoneum was obtained and initial laparoscopy showed no evidence of visceral injury during entry. A 12 mm trocar was then placed in the supraumbilical position and another 5 mm trocar was placed in the left lower quadrant. This was done under direct visualization. The patient was placed on the steep Trendelenburg position with the left side down. With careful maneuvering we were able to expose the cecum in the right lower quadrant. The appendix was noted to be on the retrocecal position. After putting some traction at the level of the cecum and I was able to visualize the tip of the appendix laying on the retrocecal position. I then grasped the appendix and used the LigaSure to transect the mesoappendix from the area of the tip traveling all the way down to the base, once the base of the appendix was free of any fatty attachments I proceeded to transect the appendix at the base using a 45 mm blue load Endo TOBY stapler. The specimen was then retrieved via the umbilical trocar site in an Endo Catch bag. Hemostasis was verified and the staple line was evaluated and noted to be intact and healthy. Completion laparoscopy showed no evidence of additional pathology in the visible abdomen. The umbilical trocar site was then closed using a 0 Vicryl in a Robb-López suture passer under direct visualization. Local anesthesia was infiltrated in the fascia around the closure site. I then proceeded to remove the left lower quadrant trocar under direct visualization. The left upper quadrant trocar was then used to acquire pneumoperitoneum and subsequently removed. The wounds were closed in layers using #3-0 Vicryl for the subcutaneous and #4-0 Monocryl for the skin. Dermabond was applied. At the end of the procedure all counts were correct, the patient tolerated well the procedure and was transferred to the PACU in stable condition.
--- NOTE | 2023-09-29 15:38 | PM.DCS ---
Discharge Providers Date of Admission: 09/28/23 15:26 Date of Discharge: September 29, 2023 Attending Provider at Admission: Emperatriz Juan MD Attending Provider at Discharge: Emperatriz Juan MD Primary Care Provider: Misty Bedoay MD Diagnoses at Discharge Discharge Diagnosis (1) Appendicitis: Details from hospital stay: 68-year-old male who presented with acute appendicitis verified by imaging. Laparoscopic appendectomy was done without complications, patient stable after surgery will be discharged to follow-up as outpatient. Status: Acute Qualifiers: Acute appendicitis type: with localized peritonitis Appendicitis abscess presence: without abscess Appendicitis gangrene presence: without gangrene Appendicitis perforation presence: without perforation Appendicitis type: acute appendicitis Qualified Code(s): K35.30 - Acute appendicitis with localized peritonitis, without perforation or gangrene Reason for Visit Reason for Visit: Kidney trouble Physical Exam GI: OTHER: Abdomen is soft, appropriately tender to palpation, surgical incisions covered with Dermabond. Discharge Data Studies Completed and Pending Completed Studies During Hospitalization Category Date Time Status CT abdomen RS [CT kidney stone [id number]] Stat Cat Scan 09/28/23 14:07 Completed Radiology Impressions Abdomen/Pelvis CT 09/28/23 14:07 IMPRESSION: Suspicion for early/developing acute appendicitis, if there is clinical correlation. Laboratory Results WBC 6.84 10^3/uL (3.29-11.43) 09/29/23 07:12 RBC 4.88 10^6/uL (3.85-5.65) 09/29/23 07:12 Hgb 13.30 g/dL (11.27-16.99) 09/29/23 07:12 Hct 40.5 % (37-53) 09/29/23 07:12 MCV 83.0 fl (82-101) 09/29/23 07:12 MCH 27.3 pg (27-33) 09/29/23 07:12 MCHC 32.8 g/dL (30-55) 09/29/23 07:12 RDW 12.8 % (12.1-15.1) 09/29/23 07:12 Plt Count 151 10^3/cmm (157-399) L 09/29/23 07:12 MPV 11.0 fL (7.4-10.4) H 09/29/23 07:12 Neut % (Auto) 72.1 % 09/29/23 07:12 Lymph % (Auto) 17.1 % 09/29/23 07:12 [place] % (Auto) 7.2 % 09/29/23 07:12 Eos % (Auto) 2.9 % 09/29/23 07:12 Baso % (Auto) 0.4 % 09/29/23 07:12 Neut # (Auto) 4.93 10^3/uL (1.8-7.7) 09/29/23 07:12 Lymph # (Auto) 1.2 10^3/uL (0.8-4.8) 09/29/23 07:12 [place] # (Auto) 0.5 10^3/uL (0.2-0.9) 09/29/23 07:12 Eos # (Auto) 0.2 10^3/uL (0.0-0.8) 09/29/23 07:12 Baso # (Auto) 0.0 10^3/uL (0.0-0.1) 09/29/23 07:12 Nucleated RBC % (auto) 0 % 09/29/23 07:12 Nucleated RBCs # 0.0 /100WBC 09/29/23 07:12 Sodium 139 mmol/L (136-145) 09/28/23 12:42 Potassium 4.5 mmol/L (3.5-5.1) 09/28/23 12:42 Chloride 103 mmol/L (98-107) 09/28/23 12:42 Carbon Dioxide 27 mmol/L (22-29) 09/28/23 12:42 Anion Gap 13.5 (5-19) 09/28/23 12:42 BUN 24 mg/dL (8-23) H 09/28/23 12:42 Creatinine 0.9 mg/dL (0.7-1.2) 09/28/23 12:42 GFR Calculation 83.7 mL/min (90-130) L 09/28/23 12:42 Glucose 233 mg/dL (65-115) H 09/28/23 12:42 POC Glucose 178 mg/dL (70-110) H 09/29/23 11:08 Calculated Osmolality 300 mOsm/kg (285-295) H 09/28/23 12:42 Calcium 9.6 mg/dL (8.5-10.5) 09/28/23 12:42 Total Bilirubin 0.5 mg/dL (0.15-1.2) 09/28/23 12:42 AST 14 U/L (0-40) 09/28/23 12:42 ALT 24 U/L (0-41) 09/28/23 12:42 Alkaline Phosphatase 80 U/L (40-130) 09/28/23 12:42 Total Protein 7.0 g/dL (6.6-8.7) 09/28/23 12:42 Albumin 4.6 g/dL (3.5-5.2) 09/28/23 12:42 Globulin 2.4 g/dL (1.3-4.6) 09/28/23 12:42 Urine Color Light yellow (Yellow) 09/28/23 15:20 Urine Appearance Clear (CLEAR) 09/28/23 15:20 Urine pH 5 (5-7) 09/28/23 15:20 Ur Specific [place] 1.015 (1.005-1.030) 09/28/23 15:20 Urine Protein Neg (Negative) 09/28/23 15:20 Urine Glucose (UA) Norm (Normal) 09/28/23 15:20 Urine Ketones Negative (Negative) 09/28/23 15:20 Urine Blood Neg (Negative) 09/28/23 15:20 Urine Nitrate Negative (Negative) 09/28/23 15:20 Urine Bilirubin Neg (Negative) 09/28/23 15:20 Urine Urobilinogen Norm mg/dL (Negative) 09/28/23 15:20 Ur Leukocyte Esterase Negative (Negative) 09/28/23 15:20 Vitals Last Vital Signs Temp 98.7 F 09/29/23 13:19 Pulse 77 09/29/23 13:19 Resp 16 09/29/23 13:41 BP 194/89 09/29/23 13:19 Pulse Ox 95 09/29/23 13:41 O2 Del Method Room Air 09/28/23 17:07 Discharge Plan Discharge Patient Disposition: Home Condition: Stable Prescriptions: New oxycodone 5 mg tablet 5 mg PO Q8H PRN (Reason: pain) Qty: 20 0RF Miralax 17 gram powder in packet 17 g PO DAILY 7 Days Qty: 7 0RF amoxicillin-pot clavulanate 875-125 mg tablet 1 tab PO BID Qty: 10 0RF meloxicam 7.5 mg tablet 7.5 mg PO DAILY Qty: 7 0RF Continued (DME) Diabetic shoes with custom insoles See Rx Instructions .Route .MEDSUPPLY Qty: 1 0RF Rx Instructions: [facility] directed [facility] urea 40 % cream 1 applic topical TID Qty: 198 4RF magnesium oxide 400 mg (241.3 mg magnesium) tablet 400 mg PO DAILY 30 Days Qty: 30 4RF omeprazole 10 mg Capsule,Delayed Release(Dr/Ec) 10 mg PO QAM atorvastatin 80 mg Tablet 40 mg PO QPM insulin glargine 100 unit/mL Solution 75 unit SUBCUT DAILY Novolin R Regular U100 Insulin 100 unit/mL Solution 10 unit SUBCUT TID Rx Instructions: before meals clotrimazole 1 % Solution 1 applic TOPICAL TID furosemide 20 mg Tablet 20 mg PO QAM lisinopril-hydrochlorothiazide 10-12.5 mg Tablet 1 tab PO QAM pioglitazone 30 mg Tablet 30 mg PO DAILY omega 6-tvk-ilk-fish oil [Fish Oil] 1,000 mg (120 mg-180 mg) Capsule 2 cap PO BID Ozempic 0.25 mg or 0.5 mg (2 mg/3 mL) Pen Injector 0.25 mg SUBCUT Q7D Discontinued hydrocodone-acetaminophen 7.5-325 mg tablet 1 tab PO Q8H PRN (Reason: Pain) Discharge Orders: Discharge Order (Routine); Ordered 09/29/23 Ordered By: Jaswinder Landa Referrals: Jaswinder Landa MD [Physician] - (2 weeks) Misty Bedoya MD [Primary Care Provider] - Discharge Diet: Advance as tolerated Discharge Activity: Limit activity as instructed Patient Instructions: Opioid Safety, Post Anesthesia Care, Pain Management Activity Restrictions/Additional Instructions: Walk is much as possible to improve your recovery. No heavy lifting, nothing more than 10 pounds for the next 6 weeks. You can shower starting Monday, let soap and water run over your wounds and then pat dry. Return to the hospital if you experience fever, chills, severe abdominal pain that is getting worse instead of improving, purulent discharge from your wounds. Discharge Attestations Time Spent in Discharge Care*: less than 30 min Quality Metrics Clinical Quality Measures [ No reported AMI, CVA or VTE this stay] Coding Level of Care Code Acute Code for Chg Fwd Diagnoses Appendicitis K35.30 Acute appendicitis type: with localized peritonitis Appendicitis abscess presence: without abscess Appendicitis gangrene presence: without gangrene Appendicitis perforation presence: without perforation Appendicitis type: acute appendicitis
--- NOTE | 2023-09-29 16:12 | P.PCN_ITS ---
PACU note Narrative: VSS, Good respiratory effort, report to PRESSER FIRST Exam: awake
--- NOTE | 2023-09-29 16:12 | PM.PACU ---
PACU note Narrative: VSS, Good respiratory effort, report to NARROW [employer]AUGE [facility]RAKEMAN Exam: awake
[2023-09-29] MEDS: oxyCODONE 5 mg IR Tab/Cap PO (16:34)
--- NOTE | 2023-09-29 17:00 | ANE.PACU2 ---
Inpatient post-anesthesia follow up: Airway intact: Yes Vital signs: Temperature 98 F Pulse Rate 86 Respiratory Rate 15 Blood Pressure 180/100 Pulse Oximetry 95 Oxygen Delivery Me thod Room Air Oxygen Flow Rate 10 Fraction of Inspir ed Oxygen Hydration adequate: Yes Nausea and vomiting: No Pain level: 1 Mental status: Baseline
--- NOTE | 2023-10-02 06:16 | SUR.PHASEI ---
1620 med surg nurse analy Lobato,rn here to d/c nurse,d/c papers done per analy lobato, this approved by Nai(nurse correctional case manager),family upstairs in pt's room 1635 of pt here and clothes brought to pt per .
[2023-10-02 06:25] LABS: Glucose Point of Care 150 mg/dL (70-110)
== END 2023-09-29 16:44 | disposition home or self-care (01) | DRG 399 ==
LOC: ER 15:07 → MEDSURG 16:26
PROVIDERS: Emergency Medicine; Surgery; Admitting Provider Student in an Organized Health Care Education/Training Program; Emergency Provider Nurse Practitioner Family; PCP Family Medicine; Visit Provider Student in an Organized Health Care Education/Training Program
PROC: 0DTJ4ZZ Resection of Appendix, Percutaneous Endoscopic Approach (ICD-10-PCS; CPT 44970; principal; 2023-09-29 14:10)
DX: K35.30 Acute appendicitis with localized peritonitis, without perforation or gangrene (principal); E11.40 Type 2 diabetes mellitus with diabetic neuropathy, unspecified; H40.9 Unspecified glaucoma; K74.60 Unspecified cirrhosis of liver; B18.2 Chronic viral hepatitis C; I10 Essential (primary) hypertension; Z79.85 Long-term (current) use of injectable non-insulin antidiabetic drugs; Z79.4 Long term (current) use of insulin; Z86.010 Personal history of colon polyps; Z87.891 Personal history of nicotine dependence
CPT/HCPCS: 36415; 36416; 74176; 80053; 81003; 82962; 85025; 88304; 96365; 96366; 96372; 96375; 99285; J0330; J0360; J0461; J0690; J1100; J1170; J1815; J1885; J2270; J2405; J2543; J2704; J2710; J3010; J3490; J7030; J7120

== ENCOUNTER 2023-09-30 12:05 | Emergency (ER) | payer OTHER, SELFPAY ==
[2023-09-30 12:27] VITALS: BP 173/95; PULSE 87; RESP 20; TEMP 36.8; O2SAT 94; BMI 39.1
--- NOTE | 2023-09-30 12:56 | ED_ITS ---
HPI - Abdominal Pain General: Chief Complaint: Abdominal Pain Stated Complaint: abd pain, surgery 09/29/23 Time Seen by Provider: 09/30/23 12:31 History of Present Illness: Patient presents to the ER with complaints of postop abdominal pain. Patient says he normally takes hydrocodone 3 times a day for chronic pain. Patient has appendix removed yesterday by But not close R. Patient was given 1 oxycodone to take here upon discharge. Per chart being it appears like he was given 20 tablets of oxycodone to go home with however upon further review it appears he did not receive these here nor did he get a prescription for these. 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 Dr. Wasserman was consulted who agreed that he can take the oxycodone every 4 hours as directed. We will provide him a prescription for these. Review of Systems General: Reports: 10 or more systems reviewed and unremarkable except in HPI and below PFSH ED PFSH: Medical History Neuropathy Sacroiliac joint disease Colon polyps Hx of glaucoma 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 Diabetes mellitus Hypertension Surgical History H/O esophagogastroduodenoscopy History of hand surgery History of cataract extraction History of colonoscopy (04/15/21) Sigmoid polyp, internal hemorrhoids Social History Smoking and tobacco/nicotine status: former use of tobacco/nicotine Alcohol intake: current Alcohol intake frequency: few times a month Substance/Drug Use: current Substance/Drug use frequency: daily Physical Exam Const: COMMON NORMALS: no acute distress, average body habitus, patient oriented x3, no limitations, healthy appearing, alert and well nourished HENMT: COMMON NORMALS: normocephalic, atraumatic, hearing grossly normal bilaterally, external ears normal, Normal external nose present, moist oral mucous membranes and oropharynx normal HEAD & SCALP: normocephalic and atraumatic NOSE: Normal external nose present EXTERNAL EAR: Yes external ears normal Neck/C-Spine: COMMON NORMALS: no JVD Chest: COMMONS NORMALS: normal inspection of the chest and normal palpation of entire chest wall Resp: COMMON NORMALS: normal respiratory effort, No retractions, No use of accessory muscles and clear to auscultation bilaterally AUSCULTATION: clear to auscultation bilaterally Cardio: COMMON NORMALS: no JVD, regular rate, regular rhythm, S1 normal heart sound present, S2 normal heart sound present, No gallops present (Cardio), No clicks present (Cardio), No murmurs present (Cardio) and No rub (Cardio) RATE: regular rate RHYTHM: regular rhythm HEART SOUNDS: S1 normal heart sound present and S2 normal heart sound present Neuro: COMMON NORMALS: patient oriented x3 SENSORIUM/ORIENTATION: Yes alert Course Vital Signs: Vital signs: Vital Signs Temperature 98.3 F 09/30/23 12:27 Pulse Rate 87 09/30/23 12:27 Respiratory Rate 20 H 09/30/23 12:27 Blood Pressure 173/95 09/30/23 12:27 Pulse Oximetry 94 09/30/23 12:27 MDM - Abdominal Pain Medical Decision Making We will prescribe 20 tablets of oxycodone 5 mg 1 p.o. every 4 hours as needed per Dr. Thomas's orders suggestion. Patient be discharged to continue with postop care. Differential Diagnosis Likely abdominal pain; Unlikely acute appendicitis, calculus of kidney, constipation, diverticulitis, endometriosis, gastroenteritis, pancreatitis or small bowel obstruction Medical Records I reviewed the patient's medical records. Lab Data I reviewed the patient's lab results. No radiology studies performed this visit Discharge Plan Discharge Patient Disposition: Home Clinical Impression: Postoperative abdominal pain Condition: Stable Prescriptions: New oxycodone 5 mg tablet 5 mg PO Q4H PRN (Reason: pain) Qty: 20 0RF No Action (DME) Diabetic shoes with custom insoles See Rx Instructions .Route .MEDSUPPLY Qty: 1 0RF Rx Instructions: As directed BY [facility] urea 40 % cream 1 applic topical TID Qty: 198 4RF magnesium oxide 400 mg (241.3 mg magnesium) tablet 400 mg PO DAILY 30 Days Qty: 30 4RF omeprazole 10 mg Capsule,Delayed Release(Dr/Ec) 10 mg PO QAM atorvastatin 80 mg Tablet 40 mg PO QPM insulin glargine 100 unit/mL Solution 75 unit SUBCUT DAILY Novolin R Regular U100 Insulin 100 unit/mL Solution 10 unit SUBCUT TID Rx Instructions: before meals clotrimazole 1 % Solution 1 applic TOPICAL TID furosemide 20 mg Tablet 20 mg PO QAM lisinopril-hydrochlorothiazide 10-12.5 mg Tablet 1 tab PO QAM pioglitazone 30 mg Tablet 30 mg PO DAILY omega 4-skb-yfp-fish oil [Fish Oil] 1,000 mg (120 mg-180 mg) Capsule 2 cap PO BID Ozempic 0.25 mg or 0.5 mg (2 mg/3 mL) Pen Injector 0.25 mg SUBCUT Q7D oxycodone 5 mg tablet 5 mg PO Q8H PRN (Reason: pain) Qty: 20 0RF Miralax 17 gram powder in packet 17 g PO DAILY 7 Days Qty: 7 0RF amoxicillin-pot clavulanate 875-125 mg tablet 1 tab PO BID Qty: 10 0RF meloxicam 7.5 mg tablet 7.5 mg PO DAILY Qty: 7 0RF Discharge Orders: Discharge ED (Routine); Ordered 09/30/23 Ordered By: Geoffrey Thomas Referrals: Misty Bedoya MD [Primary Care Provider] - 1 week Patient Instructions: Abdominal Pain (ED), Opioid Safety, Pain Management Coding Level of Care Code ED Field Supervisor [employer] for Urszula Krueger
[2023-09-30] MEDS: oxyCODONE 5 mg IR Tab/Cap PO (14:25)
== END 2023-09-30 14:28 | disposition home or self-care (01) ==
PROVIDERS: Emergency Provider Emergency Medicine; PCP Family Medicine
DX: G89.18 Other acute postprocedural pain (principal); R10.9 Unspecified abdominal pain; Z86.19 Personal history of other infectious and parasitic diseases; E11.9 Type 2 diabetes mellitus without complications; I10 Essential (primary) hypertension; Z87.891 Personal history of nicotine dependence
CPT/HCPCS: 99283

== ENCOUNTER 2023-10-01 09:21 | Emergency (ER) | payer OTHER, SELFPAY ==
[2023-10-01 09:36] VITALS: BP 145/92; PULSE 84; TEMP 36.5; O2SAT 97; BMI 38.0
[2023-10-01 11:09] VITALS: BP 135/93; PULSE 70; O2SAT 96
--- NOTE | 2023-10-01 11:09 | XRR_ITS ---
PROCEDURE INFORMATION: Exam: XR Abdomen Exam date and time: 10/01/2023 11:51 AM Age: 68 years old Clinical indication: Abdominal pain; Flank; Right; Prior surgery; Surgery date: 3-7 days post-operative; Surgery type: Appendectomy; HX of kidney stones, abdominal distention; ? Post op ileus TECHNIQUE: Imaging protocol: Radiologic exam of the abdomen. Views: 2 Views. Upright and supine views. COMPARISON: CT kidney stone [id number] 09/28/2023 2:14 PM FINDINGS: Gastrointestinal tract: There are air-filled mildly dilated small bowel loops.Colonic constipation is present. Intraperitoneal space: Normal. No free air. Bones/joints: Unremarkable for age. XR/XR abdomen min 2V [id number] IMPRESSION: 1. Colonic constipation is present. 2. There are air-filled mildly dilated small bowel loops which can be seen with ileus versus early or partial small bowel obstruction.
--- NOTE | 2023-10-01 11:09 | W.ED.ABDPA2 ---
HPI - Abdominal Pain General: Chief Complaint: Abdominal Pain Stated Complaint: right side pain Time Seen by Provider: 10/01/23 09:58 History of Present Illness: 68-year-old male with a history of chronic pain and opioid dependence presents to the emergency department for right flank pain and right lower quadrant abdominal pain. He started having this pain on the . He was seen in the emergency department and diagnosed with early appendicitis. He had surgery on the . He has continued to have abdominal pain and flank pain. Patient denies dysuria, urinary frequency, hematuria. He reports he does not recall whether he is passing gas. He has not had a bowel movement since Monday. He started taking MiraLAX yesterday. He typically takes Drummond 04/11/2025 3 times a day. They did not send him home with any extra pain medication from surgery. He came to the emergency department yesterday and got oxycodone 5 mg x 5 tabs to take home plus a prescription for oxycodone fives x 20 tabs. Patient reports pharmacy was not open. Associated Symptoms: Denies chills, diarrhea, dysuria, fever(s), syncope and vomiting Review of Systems General: Reports: 10 or more systems reviewed and unremarkable except in HPI and below Const: Denies: fever(s), chills or body aches ENMT: Denies: throat pain Card: Denies: chest pain, edema or syncope Resp: Denies: dyspnea or productive cough GI: Denies: vomiting or diarrhea : Denies: dysuria or urinary frequency Musc: Denies: neck pain, back pain, extremity pain or extremity swelling Skin/Breast: Denies: rash or erythema Neuro: Denies: numbness in extremities, weakness in extremities, lack of coordination or difficulty walking [facility] ED PFSH: Medical History Neuropathy Sacroiliac joint disease Colon polyps Hx of glaucoma 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 Diabetes mellitus Hypertension Surgical History H/O esophagogastroduodenoscopy History of hand surgery History of cataract extraction History of colonoscopy (04/15/21) Sigmoid polyp, internal hemorrhoids Social History Smoking and tobacco/nicotine status: former use of tobacco/nicotine Alcohol intake: current Alcohol intake frequency: few times a month Substance/Drug Use: current Substance/Drug use frequency: daily Physical Exam Narrative: EXAM NARRATIVE: 68-year-old male sitting on the end of the bed in an upright seated position. He is obese. He appears slightly uncomfortable but nontoxic. Percussion of the right flank reveals mild tenderness. Palpation of the abdomen reveals a soft, obese abdomen. There is increased bowel sounds and sometimes high-pitched sounds. The surgical incisions x 3 are clean dry and intact. Patient has tenderness throughout the right lower, right mid and right flank. He really does not have peritoneal signs or guarding. Const: COMMON NORMALS: no limitations, alert and well nourished EXAM LIMITATIONS: no altered mental status HENMT: COMMON NORMALS: normocephalic, atraumatic and external ears normal HEAD & SCALP: normocephalic and atraumatic EXTERNAL EAR: Yes external ears normal MOUTH: no muffled voice Eye: COMMON NORMALS: EOMs intact bilaterally, conjunctivae normal and no scleral icterus CONJUNCTIVA: Yes conjunctivae normal Neck/C-Spine: COMMON NORMALS: no JVD GENERAL: Yes normal visual inspection and Yes trachea midline Resp: COMMON NORMALS: normal respiratory effort, No use of accessory muscles and clear to auscultation bilaterally AUSCULTATION: clear to auscultation bilaterally Cardio: COMMON NORMALS: no JVD, regular rate and regular rhythm RATE: regular rate RHYTHM: regular rhythm GI: COMMON NORMALS: Soft to palpation PALPATION: Yes Soft to palpation Extremity: COMMON NORMALS: normal to inspection Neuro: COMMON NORMALS: moves all extremities, no focal motor deficits and no sensory deficits noted SENSORIUM/ORIENTATION: Yes alert SPEECH: speech normal Psych: COMMON NORMALS: mental status grossly normal, Normal thought process present, cooperative, normal affect and speech normal SPEECH: Yes normal speech THOUGHT PROCESS: Normal thought process present Skin: COMMON NORMALS: turgor normal and no jaundice GENERAL SKIN EXAM: turgor normal Course Vital Signs: Vital signs: Vital Signs Temperature 97.7 F 10/01/23 09:36 Pulse Rate 70 10/01/23 11:09 Respiratory Rate 16 10/01/23 11:25 Blood Pressure 135/93 10/01/23 11:09 Pulse Oximetry 98 10/01/23 11:25 Oxygen Delivery Me thod Room Air 10/01/23 09:36 MDM - Abdominal Pain Medical Decision Making 68-year-old male with pain in the right flank and right abdomen for the last 5 days. He had cholecystectomy and is postoperative day #2. It is difficult to ascertain whether this tenderness is normal for his postoperative period since he has chronic pain syndrome. His abdomen is soft, mildly tender over the right abdomen and right flank. On my review of his previous CT scan, he did have some intrarenal kidney stones bilaterally. There was no hydronephrosis. Patient does not have any symptoms of UTI. I suspect this is normal postoperative pain with possible ileus versus constipation. Will obtain a two-view abdomen x-ray. Will give him an oxycodone 10 here. The patient is dependent on opiates which may also exacerbate constipation or ileus. Furthermore, I will check a urine analysis. 12:30 PM Update Patient's urine analysis did not show any suggestion of UTI nor any blood in his urine. He has remained afebrile without any signs of systemic inflammatory response. He has 2 outstanding oxycodone prescriptions and a chronic Drummond prescription. KUB, on my review, does not show any ileus pattern or obstruction. Patient took 1 dose of MiraLAX yesterday. Increase MiraLAX to twice a day, add on Senokot with Colace. 1 shot of Relistor here. Patient can follow-up with general surgery in the next 1 to 3 days. No further emergent workup or hospitalization is indicated at this time. Lab Data Labs/Radiology: Laboratory Results Urine Color Colorless (Yellow) 10/01/23 11:24 Urine Appearance Clear (CLEAR) 10/01/23 11:24 Urine pH 6.5 (5-7) 10/01/23 11:24 Ur Specific Delmar 1.005 (1.005-1.030) 10/01/23 11:24 Urine Protein Neg (Negative) 10/01/23 11:24 Urine Glucose (UA) 2+ (Normal) H 10/01/23 11:24 Urine Ketones Negative (Negative) 10/01/23 11:24 Urine Blood Neg (Negative) 10/01/23 11:24 Urine Nitrate Negative (Negative) 10/01/23 11:24 Urine Bilirubin Neg (Negative) 10/01/23 11:24 Urine Urobilinogen Norm mg/dL (Negative) 10/01/23 11:24 Ur Leukocyte Esterase Negative (Negative) 10/01/23 11:24 XR interpretation done by ED provider, pending radiology final review Discharge Plan Discharge Patient Disposition: Home Clinical Impression: Fecal retention, Post-operative pain, Bilateral nephrolithiasis, Opioid dependence with current use Condition: Stable Prescriptions: New Colace 2-In-1 8.6-50 mg tablet 1 tab-cap PO BID Qty: 10 0RF No Action (DME) Diabetic shoes with custom insoles See Rx Instructions .Route .MEDSUPPLY Qty: 1 0RF Rx Instructions: [facility] directed [facility] urea 40 % cream 1 applic topical TID Qty: 198 4RF magnesium oxide 400 mg (241.3 mg magnesium) tablet 400 mg PO DAILY 30 Days Qty: 30 4RF omeprazole 10 mg Capsule,Delayed Release(Dr/Ec) 10 mg PO QAM atorvastatin 80 mg Tablet 40 mg PO QPM insulin glargine 100 unit/mL Solution 75 unit SUBCUT DAILY Novolin R Regular U100 Insulin 100 unit/mL Solution 10 unit SUBCUT TID Rx Instructions: before meals clotrimazole 1 % Solution 1 applic TOPICAL TID furosemide 20 mg Tablet 20 mg PO QAM lisinopril-hydrochlorothiazide 10-12.5 mg Tablet 1 tab PO QAM pioglitazone 30 mg Tablet 30 mg PO DAILY omega 6-iqr-epv-fish oil [Fish Oil] 1,000 mg (120 mg-180 mg) Capsule 2 cap PO BID Ozempic 0.25 mg or 0.5 mg (2 mg/3 mL) Pen Injector 0.25 mg SUBCUT Q7D oxycodone 5 mg tablet 5 mg PO Q8H PRN (Reason: pain) Qty: 20 0RF Miralax 17 gram powder in packet 17 g PO DAILY 7 Days Qty: 7 0RF amoxicillin-pot clavulanate 875-125 mg tablet 1 tab PO BID Qty: 10 0RF meloxicam 7.5 mg tablet 7.5 mg PO DAILY Qty: 7 0RF oxycodone 5 mg tablet 5 mg PO Q4H PRN (Reason: pain) Qty: 20 0RF Discharge Orders: Discharge ED (Routine); Ordered 10/01/23 Ordered By: Dario Aguilera Referrals: Jaswinder Landa MD [Physician] - 1-3 days (post op pain) Misty Bedoya MD [Primary Care Provider] - Discharge Diet: Advance as tolerated Discharge Activity: Increase activity as tolerated Patient Instructions: Opioid Safety, Pain Management Activity Restrictions/Additional Instructions: Please continue to take MiraLAX and add on Colace with senna. You do have fecal retention in the right side of the colon. This will be exacerbated by your opiate pain medication. You have 2 outstanding prescriptions for oxycodone 5, both with 20 tabs each. You also have Drummond 10 as a chronic prescription. Return to the emergency department if you have fever, inability to pass gas, vomit more than twice, or have worsening symptoms. Coding Level of Care Code ED Research Compliance Specialist for Urszula Krueger
[2023-10-01 11:25] VITALS: RESP 16; O2SAT 98
[2023-10-01] MEDS: oxyCODONE 5 mg IR Tab/Cap 10 MG PO (11:25)
[2023-10-01 11:33] LABS: Add Urine Microscopic? NO; Charge for UA Resulting for Rev
[2023-10-01 12:05] LABS: Bilirubin Urine Neg (Negative); Blood Urine Neg (Negative); Glucose Urine UA 2+ (Normal); Ketones Urine Negative (Negative); Leukocyte Esterase Urine Negative (Negative); Nitrate Urine Negative (Negative); Protein Urine Neg (Negative); Specific Gravity, Urine 1.005 (1.005-1.030); Urine Appearance Clear (CLEAR); Urine Color Colorless (Yellow); Urobilinogen Urine Norm (Negative); pH Urine 6.5 (5-7)
--- NOTE | 2023-10-01 12:30 | PC.NURSE ---
Discharge Delay: delayed d/c d/t waiting on medication to verify by pharmacy & e-scribe medications to be sent to outpatient pharmacy.
[2023-10-01 12:48] VITALS: PULSE 78; RESP 16; O2SAT 98
--- NOTE | 2023-10-01 12:54 | PC.NURSE ---
Discharge Delay: discharge delayed d/t waiting on Relistor to be verified and brought to ER by pharmacy
[2023-10-01] MEDS: methylnaltrexone 12 /0.6 mL INJ 12 MG SUBCUT (13:04)
== END 2023-10-01 13:08 | disposition home or self-care (01) ==
PROVIDERS: Emergency Provider Emergency Medicine; PCP Family Medicine
DX: K59.00 Constipation, unspecified (principal); G89.18 Other acute postprocedural pain; N20.0 Calculus of kidney; F11.229 Opioid dependence with intoxication, unspecified; Z79.4 Long term (current) use of insulin; Z79.85 Long-term (current) use of injectable non-insulin antidiabetic drugs; Z87.891 Personal history of nicotine dependence; Z86.19 Personal history of other infectious and parasitic diseases; E11.9 Type 2 diabetes mellitus without complications; I10 Essential (primary) hypertension
CPT/HCPCS: 74019; 81003; 96372; 99284; J2212

== ENCOUNTER → 2023-10-31 09:48 | Outpatient (BNVA) | payer OTHER, SELFPAY | PROVIDERS: PCP Family Medicine; Visit Provider Surgery | DX: Z48.89 Encounter for other specified surgical aftercare (principal) | CPT/HCPCS: 99024 ==

== ENCOUNTER → 2023-11-29 13:04 | Outpatient (BNVA) | payer OTHER, SELFPAY | PROVIDERS: PCP Family Medicine; Visit Provider Podiatrist Foot & Ankle Surgery | DX: L60.3 Nail dystrophy (principal); B18.2 Chronic viral hepatitis C; K74.60 Unspecified cirrhosis of liver; L84 Corns and callosities; E11.42 Type 2 diabetes mellitus with diabetic polyneuropathy; M20.41 Other hammer toe(s) (acquired), right foot; M20.42 Other hammer toe(s) (acquired), left foot; I73.9 Peripheral vascular disease, unspecified; L60.1 Onycholysis; Z79.4 Long term (current) use of insulin | CPT/HCPCS: 11055 ==

== ENCOUNTER 2023-11-30 14:27 | Outpatient (CLI) | payer OTHER, SELFPAY ==
--- NOTE | 2023-11-30 14:31 | US_ITS ---
WS: [id number] THYROID ULTRASOUND HISTORY: EVAL FOR THYROID NODULE COMPARISON: None available. Right lobe: 1.6 cm x 1.4 cm x 4.3 cm (w x ap x l). Volume: 4.6 cm3. Normal size and echotexture. No significant are dominant nodules are present. Left lobe: 1.3 cm x 1.2 cm x 3.3 cm (w x ap x l). Volume: 2.5 cm3. Normal size and echotexture. No significant or dominant nodules are present. Isthmus: 0.3 cm. Solid mass nearly isoechoic to the adjacent muscles and soft tissues is identified just superior to t he LEFT thyroid. This mass is palpable. This is an ovoid mass measuring 3.0 x 2.9 x 1.9 cm. No increa sed vascularity. This is most likely a lipoma. US/US thyroid [id number] IMPRESSION: Normal thyroid ultrasound. Palpable mass LEFT neck is most consistent with a benign lipoma.
== END 2023-11-30 14:28 | disposition home or self-care (01) ==
LOC: RAD 14:27
PROVIDERS: PCP Family Medicine; Visit Provider Nurse Practitioner Family
DX: E07.9 Disorder of thyroid, unspecified (principal)
CPT/HCPCS: 76536

== ENCOUNTER → 2024-01-18 09:25 | Outpatient (CLI) | payer OTHER, SELFPAY ==
--- NOTE | 2024-01-18 09:28 | CTR_ITS ---
PROCEDURE INFORMATION: Exam: CT Neck With Contrast Exam date and time: 01/18/2024 9:45 AM Age: 68 years old Clinical indication: Mass, lump, or swelling in neck; Patient HX: Left anterior neck lump-bb x 3 months; Additional info: L neck mass TECHNIQUE: Imaging protocol: Computed tomography of the neck with contrast. Radiation optimization: All CT scans at this facility use at least one of these dose optimization techniques: automated exposure control; mA and/or kV adjustment per patient size (includes targeted exams where dose is matched to clinical indication); or iterative reconstruction. Contrast material: OMNI 350; Contrast volume: 100 ml; Contrast route: INTRAVENOUS (IV); COMPARISON: [place] thyroid [id number] 11/30/2023 3:04 PM RADIATION DOSE METRICS: Total DLP (mGy-cm): 230.12 FINDINGS: Salivary glands: Normal. Glands are normal in size. Pharynx: Unremarkable. No significant tonsillar enlargement. Prevertebral and retropharyngeal spaces: Unremarkable. Larynx: Unremarkable. Epiglottis is normal. Thyroid: Normal. No enlarged or calcified nodules. Trachea: Visualized trachea is unremarkable. Lungs: Unremarkable as visualized. Lymph nodes: Unremarkable. No lymphadenopathy. Bones/joints: Unremarkable. No acute fracture. Soft tissues: Small circumscribed fat collection in the left neck in the area of palpable abnormality consistent with lipoma. CT/CT neck w con* [id number] IMPRESSION: Small circumscribed fat collection in the left neck in the area of palpable abnormality consistent with lipoma.
[2024-01-18] MEDS: iohexol 350 mg/mL 500 mL Btl (per mL) IV (09:53)
== END | disposition home or self-care (01) ==
PROVIDERS: PCP Family Medicine; Visit Provider Family Medicine
DX: Z01.89 Encounter for other specified special examinations (principal); R22.1 Localized swelling, mass and lump, neck
CPT/HCPCS: 70491; Q9967

== ENCOUNTER 2024-01-31 07:14 | Outpatient (CLI) | payer OTHER, SELFPAY ==
--- NOTE | 2024-01-31 07:18 | US_ITS ---
WS: [id number] RIGHT UPPER QUADRANT ULTRASOUND HISTORY: LIVER CIRRHOSIS SURVEILLANCE COMPARISON: None available. Liver: 16.1 cm in length. Liver is normal size. Surface of the liver is irregular consistent with cir rhosis. No mass identified. No intrahepatic dilatation. Portal Vein: Normal hepatopetal flow with monophasic waveform. Gallbladder: Normally distended gallbladder with no stones or wall thickening. CBD: 0.4 cm Pancreas: Not visualized. Right kidney: 9.9 cm in length. Normal size and echogenicity. No hydronephrosis or mass. Aorta and IVC: Poorly visualized. No ascites. US/US abdomen limited [id number] IMPRESSION: 1. Cirrhotic liver, similar to the prior study of 08/30/2023. 2. Normal gallbladder. 3. Remaining study is compromised by body habitus.
== END 2024-01-31 07:15 | disposition home or self-care (01) ==
LOC: RAD 07:14
PROVIDERS: PCP Family Medicine; Visit Provider Family Medicine
DX: F10.10 Alcohol abuse, uncomplicated (principal); K74.60 Unspecified cirrhosis of liver
CPT/HCPCS: 76705

== ENCOUNTER → 2024-03-20 13:09 | Outpatient (BNVA) | payer OTHER, SELFPAY | PROVIDERS: PCP Family Medicine; Visit Provider Podiatrist Foot & Ankle Surgery | DX: L60.3 Nail dystrophy (principal); B18.2 Chronic viral hepatitis C; K74.60 Unspecified cirrhosis of liver; L84 Corns and callosities; E11.42 Type 2 diabetes mellitus with diabetic polyneuropathy; M20.41 Other hammer toe(s) (acquired), right foot; M20.42 Other hammer toe(s) (acquired), left foot; I73.9 Peripheral vascular disease, unspecified | CPT/HCPCS: 11055; 11721 ==

== ENCOUNTER 2024-07-09 10:47 | Emergency (ER) | payer OTHER, SELFPAY ==
[2024-07-09] VITALS (8 sets, daily range): BP systolic 128–166; BP diastolic 74–95; PULSE 75–86; RESP 16–17; TEMP 36.6; O2SAT 93–97; BMI 36.0
--- NOTE | 2024-07-09 12:02 | PC.PHAR ---
[facility] is [facility] 07/09/24 12pm
--- NOTE | 2024-07-09 12:27 | CT_ITS ---
WS: [id number] CT scan of the abdomen and pelvis with IV contrast. Additional two-dimensional coronal and sagittal reconstruction was performed. 07/09/2024 Clinical Data: RUQ abdominal pain Comparison: CT abdomen pelvis, 09/28/2023 DLP: 1006.[address] scans at [facility] use at least one of these dose optimization techniques: automated e xposure control; mA and/or kV adjustment per patient size (includes targeted exams where dose is matc hed to clinical indication); or iterative reconstruction. Findings: The lower lungs show no nodules, masses or effusions. The liver, gallbladder, spleen, adrenal glands and pancreas are normal. The kidneys show equal bilateral contrast excretion with no cyst or masses. No hydronephrosis, renal calculi or ureteral calculi are seen. The abdominal aorta is normal in size. No appendicitis or diverticulitis is seen. The stomach, small bowel and colon are not remarkable. The bladder is unremarkable. The prostate is slightly enlarged. No inguinal hernia is seen. The bones of the lumbar spine, pelvis, and hips are normal. There is osteoarthritic spurring of the lower thoracic vertebral bodies. CT/CT abdomen pelvis w con* [id number] Impression: Negative CT scan of the abdomen and pelvis.
--- NOTE | 2024-07-09 12:31 | ED_ITS ---
HPI - Abdominal Pain 2 General: Chief Complaint: Abdominal Pain Stated Complaint: Right side pain Time Seen by Provider: 07/09/24 11:58 History of Present Illness: 68-year-old male presents to the ER husam skinner complaint of having ongoing abdominal pain located the right side of the abdomen has been progressively worse over the last 2 weeks patient endorses a prior history of liver disease as well as diabetes. The patient reports no fevers or chills with that as he denies anything that seems to make it better or worse he reports no bowel changes constipation or diarrhea or bloody stools patient does endorse prior history nonobstructing renal disease kidney stones bilaterally he denies any urinary frequency or hematuria the patient presents to the emergency department for further assessment and management. Associated Symptoms: Reports nausea; Denies chills, fever(s) and vomiting Related Data Home Medications Medication Instructions Recorded Confirmed omeprazole 10 mg capsule,delayed 10 mg PO QAM 10/22/21 07/09/24 release atorvastatin 80 mg tablet 40 mg PO QPM 09/28/23 07/09/24 clotrimazole 1 % topical solution 1 applic topical TID PRN fungal 09/28/23 07/09/24 infection furosemide 20 mg tablet 20 mg PO QAM 09/28/23 07/09/24 insulin glargine 100 unit/mL 25 unit SUBCUT DAILY 09/28/23 07/09/24 subcutaneous solution insulin regular human 100 unit/mL 20 unit SUBCUT BID 09/28/23 07/09/24 injection solution (Novolin R Regular U-100 Insulin) lisinopril 10 1 tab PO QAM 09/28/23 07/09/24 mg-hydrochlorothiazide 12.5 mg tablet omega 2-btx-sqd-fish oil 1,000 mg 2 cap PO BID 09/28/23 07/09/24 (120 mg-180 mg) capsule (Fish Oil) pioglitazone 30 mg tablet 30 mg PO DAILY 09/28/23 07/09/24 apple cider vinegar 500 mg tablet 500 mg PO DAILY 07/09/24 07/09/24 cholecalciferol (vitamin D3) 50 50 mcg PO DAILY 07/09/24 07/09/24 mcg (2,000 unit) tablet (Vitamin D3) empagliflozin 25 mg tablet 25 mg PO QAM 07/09/24 07/09/24 (Jardiance) ferrous gluconate 324 mg (38 mg 324 mg PO DAILY 07/09/24 07/09/24 iron) tablet folic acid 400 mcg tablet 0.4 mg PO DAILY 07/09/24 07/09/24 hydrocodone 10 mg-acetaminophen 1 tab PO Q6H PRN Pain 07/09/24 07/09/24 325 mg tablet hydroxyzine HCl 50 mg tablet 50 mg PO BID PRN Anxiety 07/09/24 07/09/24 lubiprostone 8 mcg capsule 8 mcg PO BID 07/09/24 07/09/24 mupirocin 2 % topical ointment 1 applic topical TID PRN Skin 07/09/24 07/09/24 Irritation polyethylene glycol 3350 17 See Rx Instructions .Route .COMPLEX 07/09/24 07/09/24 gram/dose oral powder propranolol 80 mg capsule,24 80 mg PO DAILY 07/09/24 07/09/24 hr,extended release semaglutide 1 mg/dose (4 mg/3 mL) 1 mg SUBCUT Q7D 07/09/24 07/09/24 subcutaneous pen injector urea 40 % topical cream 1 applic topical TID PRN Dry Skin 07/09/24 07/09/24 Previous Rx's Medication Instructions Recorded Diabetic shoes with custom insoles #1 ea 02/28/23 magnesium oxide 400 mg (241.3 mg 400 mg PO DAILY 30 days #30 tabs 03/01/23 magnesium) tablet meloxicam 7.5 mg tablet 7.5 mg PO DAILY #7 tabs 09/29/23 hydrocodone 5 mg-acetaminophen 325 1 tab PO Q8H PRN severe pain 07/09/24 mg tablet (scale score 7-10) #7 tabs Allergies Allergy/AdvReac Type Severity Reaction Status Date / Time erythromycin base Allergy Unknown Verified 07/09/24 11:43 Review of Systems 2 General: Reports: 10 or more systems reviewed and unremarkable except in HPI and below Const: Denies: fever(s), chills, fatigue or malaise Eyes: Denies: change in vision or blurry vision Card: Denies: chest pain or palpitations Resp: Denies: dyspnea or productive cough GI: Reports: abdominal pain and nausea; Denies: vomiting : Denies: flank pain Musc: Denies: extremity pain or extremity swelling Skin/Breast: Denies: rash or pruritus Neuro: Denies: headache(s) Psych: Denies: anxiety or depression Anibal/Lymph: Denies: easy bleeding All/Imm: Denies: urticaria, throat swelling or facial swelling PFSH ED 2 PFSH: Medical History Neuropathy Sacroiliac joint disease Colon polyps Hx of glaucoma 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 Diabetes mellitus Hypertension Surgical History H/O esophagogastroduodenoscopy History of hand surgery History of cataract extraction History of colonoscopy (04/15/21) Sigmoid polyp, internal hemorrhoids Social History Smoking and tobacco/nicotine status: former use of tobacco/nicotine Alcohol intake: current Alcohol intake frequency: few times a month Substance/Drug Use: current Substance/Drug use frequency: daily Physical Exam 2 Narrative: EXAM NARRATIVE: Moderate pain to palpation looking at the right upper quadrant region right lower quadrant no guarding or rebound noted moderate abdominal distention appreciated. The patient reports this is chronic. Const: COMMON NORMALS: no acute distress, patient oriented x3 and healthy appearing HENMT: COMMON NORMALS: normocephalic and atraumatic HEAD & SCALP: n ormocephalic and atraumatic Eye: COMMON NORMALS: Equal, round and reactive pupils present and EOMs intact bilaterally PUPIL: Yes Equal, round and reactive pupils present Neck/C-Spine: COMMON NORMALS: full ROM, supple and no JVD Lymph: LYMPHATIC: no lymphadenopathy noted Chest: COMMONS NORMALS: normal inspection of the chest and normal palpation of entire chest wall Resp: COMMON NORMALS: normal respiratory effort, No retractions and clear to auscultation bilaterally EFFORT & INSPECTION: Yes able to speak in complete sentences and Yes symmetric chest movement AUSCULTATION: clear to auscultation bilaterally Cardio: COMMON NORMALS: no JVD, regular rate and regular rhythm RATE: r egular rate RHYTHM: regular rhythm GI: COMMON NORMALS: negative for Normal to inspection, nondistended, normoactive bowel sounds present (Diffuse abdominal distention patient reports this is chronic no rebound or ), negative for Soft to palpation and negative for no bruits INSPECTION: Yes normal to inspection PALPATION: No Soft to palpation : COMMON NORMALS: Yes no CVA tenderness BLADDER/KIDNEY EXAM: Yes no CVA tenderness Back/Pelvis: COMMON NORMALS: no CVA tenderness Extremity: COMMON NORMALS: normal to inspection and full ROM Neuro: COMMON NORMALS: patient oriented x3, CN's II-XII intact bilaterally, moves all extremities and no focal motor deficits Psych: COMMON NORMALS: mental status grossly normal, Normal thought process present, cooperative and normal affect THOUGHT PROCESS: Normal thought process present Skin: COMMON NORMALS: no rashes or lesions noted GENERAL SKIN EXAM: no rashes or lesions noted Course 2 Vital Signs: Vital signs: Vital Signs Temperature 97.9 F 07/09/24 11:38 Pulse Rate 81 07/09/24 15:30 Respiratory Rate 16 07/09/24 12:56 Blood Pressure 165/82 07/09/24 15:30 Pulse Oximetry 94 07/09/24 15:30 Oxygen Delivery Me thod Room Air 07/09/24 15:30 MDM - Abdominal Pain Medical Decision Making Due to patient's symptoms and condition IV will be established basic lab work imaging will be obtained underlying concerns of gallbladder disease versus worsening cirrhotic liver disease versus renal versus other is prominent. Patient appears currently in stable condition nontoxic-appearing. Patient's lab work and imaging came back reassuring will be concerned the patient limited prescriptions of some hydrocodone for any breakthrough pain control advised patient do not find any alarming findings based upon his CT scans or lab work advised further follow-up with primary care in 3 to 5 days for further evaluation management in which to return the interim if any of his symptoms persist or worse. Lab Data 07/09/24 12:50 07/09/24 12:50 Labs/Radiology: Radiology Impressions Abdomen/Pelvis CT 07/09/24 12:27 Impression: Negative CT scan of the abdomen and pelvis. Laboratory Results WBC 4.99 10^3/uL (3.29-11.43) 07/09/24 12:50 RBC 5.14 10^6/uL (3.85-5.65) 07/09/24 12:50 Hgb 14.30 g/dL (11.27-16.99) 07/09/24 12:50 Hct 44.3 % (37-53) 07/09/24 12:50 MCV 86.2 fl (82-101) 07/09/24 12:50 MCH 27.8 pg (27-33) 07/09/24 12:50 MCHC 32.3 g/dL (30-55) 07/09/24 12:50 RDW 14.1 % (12.1-15.1) 07/09/24 12:50 Plt Count 164 10^3/cmm (157-399) 07/09/24 12:50 MPV 10.0 fL (7.4-10.4) 07/09/24 12:50 Neut % (Auto) 58.5 % 07/09/24 12:50 Lymph % (Auto) 28.9 % 07/09/24 12:50 [place] % (Auto) 8.6 % 07/09/24 12:50 Eos % (Auto) 3.2 % 07/09/24 12:50 Baso % (Auto) 0.6 % 07/09/24 12:50 Neut # (Auto) 2.92 10^3/uL (1.8-7.7) 07/09/24 12:50 Lymph # (Auto) 1.4 10^3/uL (0.8-4.8) 07/09/24 12:50 [place] # (Auto) 0.4 10^3/uL (0.2-0.9) 07/09/24 12:50 Eos # (Auto) 0.2 10^3/uL (0.0-0.8) 07/09/24 12:50 Baso # (Auto) 0.0 10^3/uL (0.0-0.1) 07/09/24 12:50 Nucleated RBC % (auto) 0 % 07/09/24 12:50 Nucleated RBCs # 0.0 /100WBC 07/09/24 12:50 Sodium 144 mmol/L (136-145) 07/09/24 12:50 Potassium 4.6 mmol/L (3.5-5.1) 07/09/24 12:50 Chloride 108 mmol/L (98-107) H 07/09/24 12:50 Carbon Dioxide 28 mmol/L (22-29) 07/09/24 12:50 Anion Gap 12.6 (5-19) 07/09/24 12:50 BUN 23 mg/dL (8-23) 07/09/24 12:50 Creatinine 1.2 mg/dL (0.7-1.2) 07/09/24 12:50 GFR Calculation 60.0 mL/min (90-130) L 07/09/24 12:50 Glucose 101 mg/dL (65-115) 07/09/24 12:50 Calculated Osmolality 302 mOsm/kg (285-295) H 07/09/24 12:50 Calcium 9.8 mg/dL (8.5-10.5) 07/09/24 12:50 Total Bilirubin 0.5 mg/dL (0.15-1.2) 07/09/24 12:50 AST 17 U/L (0-40) 07/09/24 12:50 ALT 24 U/L (0-41) 07/09/24 12:50 Alkaline Phosphatase 96 U/L (40-130) 07/09/24 12:50 C-Reactive Protein 3.0 mg/L (0.0-4.9) 07/09/24 12:50 Total Protein 7.6 g/dL (6.6-8.7) 07/09/24 12:50 Albumin 4.5 g/dL (3.5-5.2) 07/09/24 12:50 Globulin 3.1 g/dL (1.3-4.6) 07/09/24 12:50 Lipase 25 U/L (13-60) 07/09/24 12:50 Urine Color Yellow (Yellow) 07/09/24 12:53 Urine Appearance Clear (CLEAR) 07/09/24 12:53 Urine pH 5.5 (5-7) 07/09/24 12:53 Ur Specific [place] 1.042 (1.005-1.030) H 07/09/24 12:53 Urine Protein Negative (Negative) 07/09/24 12:53 Urine Glucose (UA) 3+ (Normal) H 07/09/24 12:53 Urine Ketones Negative (Negative) 07/09/24 12:53 Urine Blood Negative (Negative) 07/09/24 12:53 Urine Nitrate Negative (Negative) 07/09/24 12:53 Urine Bilirubin Negative (Negative) 07/09/24 12:53 Urine Urobilinogen 1.0 mg/dL (Negative) 07/09/24 12:53 Ur Leukocyte Esterase Negative (Negative) 07/09/24 12:53 Urine RBC 0-2 /hpf (0-2) 07/09/24 12:53 Urine WBC 11-20 /hpf (0-5) H 07/09/24 12:53 Ur Squamous Epith Cells 0-5 /hpf (0-5) 07/09/24 12:53 Amorphous Sediment Not Reportable 07/09/24 12:53 Urine Bacteria None seen /hpf (NONE) 07/09/24 12:53 Hyaline Casts 0-4 /lpf H 07/09/24 12:53 All radiology interpretation(s) finalized by discharge Discharge Plan Discharge Patient Disposition: Home Clinical Impression: Right-sided abdominal pain of unknown cause Condition: Stable Prescriptions: New hydrocodone-acetaminophen 5-325 mg tablet 1 tab PO Q8H PRN (Reason: severe pain (scale score 7-10)) Qty: 7 0RF No Action (DME) Diabetic shoes with custom insoles See Rx Instructions .Route .MEDSUPPLY Qty: 1 0RF Rx Instructions: As directed BY [facility] magnesium oxide 400 mg (241.3 mg magnesium) tablet 400 mg PO DAILY 30 Days Qty: 30 4RF omeprazole 10 mg Capsule,Delayed Release(Dr/Ec) 10 mg PO QAM atorvastatin 80 mg Tablet 40 mg PO QPM insulin glargine 100 unit/mL Solution 25 unit SUBCUT DAILY Novolin R Regular U100 Insulin 100 unit/mL Solution 20 unit SUBCUT BID Rx Instructions: before meals clotrimazole 1 % Solution 1 applic TOPICAL TID PRN (Reason: fungal infection) furosemide 20 mg Tablet 20 mg PO QAM lisinopril-hydrochlorothiazide 10-12.5 mg Tablet 1 tab PO QAM pioglitazone 30 mg Tablet 30 mg PO DAILY omega 0-khh-yga-fish oil [Fish Oil] 1,000 mg (120 mg-180 mg) Capsule 2 cap PO BID meloxicam 7.5 mg tablet 7.5 mg PO DAILY Qty: 7 0RF hydrocodone-acetaminophen 10-325 mg tablet 1 tab PO Q6H MDD not to exceed 4 per day PRN (Reason: Pain) propranolol 80 mg capsule,extended release 24 hr 80 mg PO DAILY polyethylene glycol 3350 17 gram/dose powder See Rx Instructions .ROUTE .COMPLEX Rx Instructions: DISSOLVE 17grams in liquid AND drink daily. lubiprostone 8 mcg capsule 8 mcg PO BID urea 40 % cream 1 applic topical TID PRN (Reason: Dry Skin) mupirocin 2 % ointment 1 applic topical TID PRN (Reason: Skin Irritation) hydroxyzine HCl 50 mg Tablet 50 mg PO BID PRN (Reason: Anxiety) folic acid 400 mcg Tablet 0.4 mg PO DAILY apple cider vinegar 500 mg Tablet 500 mg PO DAILY ferrous gluconate 324 mg (38 mg iron) Tablet 324 mg PO DAILY cholecalciferol (vitamin D3) [Vitamin D3] 50 mcg (2,000 unit) Tablet 50 mcg PO DAILY Jardiance 25 mg Tablet 25 mg PO QAM semaglutide 1 mg/dose (4 mg/3 mL) Pen Injector 1 mg SUBCUT Q7D Rx Instructions: Mondays Discharge Orders: Discharge ED (Routine); Ordered 07/09/24 Ordered By: Sam Askew Referrals: Misty Bedoya MD [Primary Care Provider] - 4-7 days Discharge Diet: Advance as tolerated Discharge Activity: Increase activity as tolerated Patient Instructions: Abdominal Pain (ED), Opioid Safety, Pain Management Activity Restrictions/Additional Instructions: Take medications as prescribed please further follow-up with primary care doctor in 2 to 3 days for further evaluation in which please return the interim if any of your symptoms persist or worsen. Coding Level of Care Code ED Marking Machine Operator for Urszula Krueger
[2024-07-09] MEDS: ketorolac 30 mg/mL INJ IVP (12:49)
[2024-07-09 12:54] LABS: Basophils % 0.6 %; Eosinophils # 0.2 10^3/uL (0.0-0.8); Eosinophils % 3.2 %; Hematocrit 44.3 % (37-53); Lymphocytes # 1.4 10^3/uL (0.8-4.8); Lymphocytes % 28.9 %; Mean Corpuscular HGB Conc 32.3 g/dL (30-55); Mean Corpuscular Hemoglobin 27.8 pg (27-33); Mean Corpuscular Volume 86.2 fl (82-101); Monocytes # 0.4 10^3/uL (0.2-0.9); Monocytes % 8.6 %; Neutrophils # 2.92 10^3/uL (1.8-7.7); Neutrophils % 58.5 %; Nucleated Red Blood Cells % 0 %; Platelet Count 164 10^3/cmm (157-399); Red Blood Count 5.14 10^6/uL (3.85-5.65); Red Cell Distribution Width 14.1 % (12.1-15.1); White Blood Count 4.99 10^3/uL (3.29-11.43)
[2024-07-09 13:07] LABS: Bilirubin Urine Negative (Negative); Blood Urine Negative (Negative); Glucose Urine UA 3+ (Normal); Ketones Urine Negative (Negative); Leukocyte Esterase Urine Negative (Negative); Nitrate Urine Negative (Negative); Protein Urine Negative (Negative); Urine Appearance Clear (CLEAR); Urine Color Yellow (Yellow); pH Urine 5.5 (5-7)
[2024-07-09 13:13] LABS: Alanine Aminotransferase 24 U/L (0-41); Albumin Level 4.5 g/dL (3.5-5.2); Alkaline Phosphatase 96 U/L (40-130); Anion Gap 12.6 (5-19); Aspartate Amino Transferase 17 U/L (0-40); Blood Urea Nitrogen 23 mg/dL (8-23); Calcium 9.8 mg/dL (8.5-10.5); Carbon Dioxide 28 mmol/L (22-29); Chloride 108 mmol/L (98-107); Creatinine Clr Calc Pharmacy 66.8833; Globulin 3.1 g/dL (1.3-4.6); Glucose 101 mg/dL (65-115); Lipase 25 U/L (13-60); Osmolality Calculated 302 mOsm/kg (285-295); Potassium 4.6 mmol/L (3.5-5.1); Sodium 144 mmol/L (136-145); Total Bilirubin 0.5 mg/dL (0.15-1.2); Total Protein 7.6 g/dL (6.6-8.7)
[2024-07-09 13:15] LABS: Add Urine Microscopic? YES; Bacteria Urine None Seen /hpf; Hyaline Casts Urine 0-4 /lpf; RBC Urine 0-2 /hpf (0-2); Squamous Epithelial Cell Urine 0-5 /hpf (0-5)
[2024-07-09 13:17] LABS: Specific Gravity, Urine 1.042 (1.005-1.030)
[2024-07-09 13:18] LABS: Add Urine Culture? No
[2024-07-09] MEDS: iohexol 350 mg/mL 500 mL Btl (per mL) IV (13:35)
== END 2024-07-09 16:14 | disposition home or self-care (01) ==
PROVIDERS: Emergency Provider Emergency Medicine; PCP Family Medicine
DX: R10.9 Unspecified abdominal pain (principal); Z79.4 Long term (current) use of insulin; Z87.891 Personal history of nicotine dependence; E11.9 Type 2 diabetes mellitus without complications; I10 Essential (primary) hypertension
CPT/HCPCS: 74177; 80053; 81001; 83690; 85025; 86140; 96374; 99285; J1885

== ENCOUNTER → 2024-07-16 14:44 | Outpatient (BNVA) | payer OTHER, SELFPAY | PROVIDERS: PCP Family Medicine; Visit Provider Podiatrist Foot & Ankle Surgery | DX: L60.3 Nail dystrophy (principal); B18.2 Chronic viral hepatitis C; K74.60 Unspecified cirrhosis of liver; L84 Corns and callosities; E11.42 Type 2 diabetes mellitus with diabetic polyneuropathy; M20.41 Other hammer toe(s) (acquired), right foot; M20.42 Other hammer toe(s) (acquired), left foot; I73.9 Peripheral vascular disease, unspecified; Z79.4 Long term (current) use of insulin | CPT/HCPCS: 11055; 11721 ==

== ENCOUNTER 2024-10-08 13:45 | Outpatient (CLI) | payer OTHER, SELFPAY ==
--- NOTE | 2024-10-08 13:49 | USR_ITS ---
PROCEDURE INFORMATION: Exam: US Duplex Upper Extremity Arteries Exam date and time: 10/08/2024 1:57 PM Age: 69 years old Clinical indication: Other: Difference in blood pressure TECHNIQUE: Imaging protocol: Real-time ultrasound scan of the arteries of the bilateral upper extremities with 2-D alexander scale, color Doppler flow and spectral waveform analysis. Complete exam. COMPARISON: US thyroid [id number] 11/30/2023 3:04 PM FINDINGS: Right subclavian artery: Abnormal monophasic waveform with sharp systolic upstroke, spectral aliasing, and forward flow through diastole. Peak velocity is 80 cm/s. Right axillary artery: Normal waveform. Peak velocity 69 cm/s. Right brachial artery: Mildly abnormal monophasic waveform with forward flow through diastole and sharp systolic upstroke. Peak velocity is 51 cm/second. Right radial artery: Mildly abnormal monophasic waveform with forward flow through diastole and sharp systolic upstroke. Peak velocity is 51 cm/s. Right ulnar artery: Mildly abnormal monophasic waveform with sharp systolic upstroke and forward flow through diastole. Peak velocity is 46 cm/s. Left subclavian artery: Normal waveform. Peak velocity 267 cm/second. Left axillary artery: Normal waveform. Peak velocity 182 cm/second. Left brachial artery: Normal waveform. Peak velocity 116 cm/second. Left radial artery: Normal waveform. Peak velocity 138 cm/second. Left ulnar artery: Normal waveform. Peak velocity 105 cm/second. Other arteries: Right common carotid artery: Normal waveform. Peak velocity 83 cm/s. Right vertebral artery: Antegrade flow with normal waveform and peak velocity 29 cm/s. Left common carotid artery: Normal waveform. Peak velocity 91 cm/s. Left vertebral artery: Normal waveform. Antegrade flow. Peak velocity 63 cm/s. US/[place] [id number] IMPRESSION: 1. 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 Prior CT shows near occlusion at the origin of the right subclavian artery. 2. 50-75% stenosis in the left subclavian artery by velocity criteria. Morphologically normal arterial waveforms are maintained throughout the left upper extremity. Prior CT shows less than 50% stenosis at the origin.
== END 2024-10-08 13:46 | disposition home or self-care (01) ==
PROVIDERS: PCP Family Medicine; Visit Provider Family Medicine
DX: Z01.89 Encounter for other specified special examinations (principal); I70.208 Unspecified atherosclerosis of native arteries of extremities, other extremity; R93.89 Abnormal findings on diagnostic imaging of other specified body structures
CPT/HCPCS: 93930

== ENCOUNTER → 2024-10-15 11:33 | Outpatient (BNVA) | payer OTHER, SELFPAY | PROVIDERS: PCP Family Medicine; Visit Provider Podiatrist Foot & Ankle Surgery | DX: E11.42 Type 2 diabetes mellitus with diabetic polyneuropathy (principal); L60.3 Nail dystrophy; L84 Corns and callosities; B18.2 Chronic viral hepatitis C; K74.60 Unspecified cirrhosis of liver; I73.9 Peripheral vascular disease, unspecified; Z79.84 Long term (current) use of oral hypoglycemic drugs | CPT/HCPCS: 11055; 11721 ==

== ENCOUNTER 2024-10-30 11:59 | Outpatient (CLI) | payer OTHER, SELFPAY ==
--- NOTE | 2024-10-30 12:05 | USR_ITS ---
PROCEDURE INFORMATION: Exam: US Duplex Bilateral Lower Extremity Arteries Exam date and time: 10/30/2024 12:13 PM Age: 69 years old Clinical indication: Abnormal findings; Abnormal imaging study of limbs; Calcifications seen on x ray of the legs; Additional info: Leg pain/incidental calcifications on knee xray TECHNIQUE: Imaging protocol: Real-time ultrasound scan of the arteries of the bilateral lower extremities with 2-D alexander scale, color Doppler flow and spectral waveform analysis. Images documented and saved. COMPARISON: CT abdomen pelvis w con* [id number] 07/09/2024 1:34 PM FINDINGS: Right common femoral artery: No occlusion or significant stenosis. Normal waveform. Right superficial femoral artery: No occlusion or significant stenosis. Normal waveform. Right popliteal artery: No occlusion or significant stenosis. Normal waveform. Right calf/foot arteries: Monophasic waveform in the posterior tibial and dorsalis pedis arteries. Left common femoral artery: No occlusion or significant stenosis. Normal waveform. Left superficial femoral artery: Monophasic waveform in the proximal superficial femoral artery. Reduced peak systolic velocity in the mid superficial femoral artery compared to the right side. Left popliteal artery: Monophasic waveform. Reduced peak systolic velocity compared to the right side. Left calf/foot arteries: Monophasic waveforms. US/[place] [id number] IMPRESSION: 1. Monophasic waveform in the left leg beginning at the level of the proximal superficial femoral artery with reduced velocities distal to that. Findings suggest a possible flow limiting left proximal superficial femoral artery stenosis.. 2. Monophasic waveforms in the right posterior tibial and dorsalis pedis arteries.
== END 2024-10-30 12:00 | disposition home or self-care (01) ==
PROVIDERS: PCP Family Medicine; Visit Provider Family Medicine
DX: I73.9 Peripheral vascular disease, unspecified (principal); R93.89 Abnormal findings on diagnostic imaging of other specified body structures
CPT/HCPCS: 93925

== ENCOUNTER 2024-11-01 08:56 | Outpatient (CLI) | payer OTHER, SELFPAY ==
--- NOTE | 2024-11-01 09:00 | US_ITS ---
WS: [id number] RIGHT UPPER QUADRANT ULTRASOUND HISTORY: GALLBLADDER PAIN/RUQ PAIN COMPARISON: 01/31/2024 Liver: 14.4 cm in length. Normal size liver. Diffuse coarse echotexture throughout the liver with surface nodularity. No mass. Portal Vein: Normal forward flow in the portal vein although the velocity is decreased. Gallbladder: Normally distended gallbladder with no stones or wall thickening. CBD: 0.4 cm Pancreas: Obscured by bowel gas. Right kidney: 9.3 cm in length. Normal size and echogenicity. No hydronephrosis or mass. Aorta and IVC: Unremarkable abdominal aorta and IVC. No ascites. US/US abdomen limited [id number] IMPRESSION: 1. Normal gallbladder. 2. Cirrhotic liver. No hepatic mass.
== END 2024-11-01 08:57 | disposition home or self-care (01) ==
PROVIDERS: PCP Family Medicine; Visit Provider Family Medicine
DX: Z01.89 Encounter for other specified special examinations (principal); R93.2 Abnormal findings on diagnostic imaging of liver and biliary tract
CPT/HCPCS: 76705

== ENCOUNTER → 2025-01-08 14:17 | Outpatient (BNVA) | payer OTHER, SELFPAY | PROVIDERS: PCP Family Medicine; Visit Provider Podiatrist Foot & Ankle Surgery | DX: E11.42 Type 2 diabetes mellitus with diabetic polyneuropathy (principal); L60.3 Nail dystrophy; L84 Corns and callosities; E11.8 Type 2 diabetes mellitus with unspecified complications; B18.2 Chronic viral hepatitis C; K74.60 Unspecified cirrhosis of liver; I73.9 Peripheral vascular disease, unspecified; Z79.4 Long term (current) use of insulin | CPT/HCPCS: 11055; 11721 ==

== ENCOUNTER → 2025-04-08 11:01 | Outpatient (BNVA) | payer OTHER, SELFPAY | PROVIDERS: PCP Family Medicine; Visit Provider Podiatrist Foot & Ankle Surgery | DX: E11.42 Type 2 diabetes mellitus with diabetic polyneuropathy (principal); L60.3 Nail dystrophy; I73.9 Peripheral vascular disease, unspecified; E11.8 Type 2 diabetes mellitus with unspecified complications; B18.2 Chronic viral hepatitis C; K74.60 Unspecified cirrhosis of liver; L84 Corns and callosities; Z79.4 Long term (current) use of insulin | CPT/HCPCS: 11055; 11721; 99213 ==

== ENCOUNTER → 2025-04-21 11:35 | Outpatient (BNVA) | payer OTHER, SELFPAY | PROVIDERS: PCP Family Medicine; Visit Provider Podiatrist Foot & Ankle Surgery | DX: M79.672 Pain in left foot (principal); E11.8 Type 2 diabetes mellitus with unspecified complications; B18.2 Chronic viral hepatitis C; K74.60 Unspecified cirrhosis of liver; E11.42 Type 2 diabetes mellitus with diabetic polyneuropathy; I73.9 Peripheral vascular disease, unspecified; L03.116 Cellulitis of left lower limb; L97.521 Non-pressure chronic ulcer of other part of left foot limited to breakdown of skin | CPT/HCPCS: 99214 ==

== ENCOUNTER 2025-04-30 10:53 | Outpatient (CLI) | payer OTHER, SELFPAY ==
--- NOTE | 2025-04-30 11:00 | USR_ITS ---
PROCEDURE INFORMATION: Exam: US Duplex Bilateral Lower Extremity Arteries Exam date and time: 04/30/2025 11:14 AM Age: 69 years old Clinical indication: Condition or disease; Peripheral vascular disease; Additional info: Pad TECHNIQUE: Imaging protocol: Real-time ultrasound scan of the arteries of the bilateral lower extremities with 2-D alexander scale, color Doppler flow and spectral waveform analysis. Images documented and saved. COMPARISON: CT abdomen pelvis w con* [id number] 07/09/2024 1:34 PM FINDINGS: Right common femoral artery: No occlusion or significant stenosis. Normal triphasic waveform. PSV 82 cm/sec. Right superficial femoral artery: No occlusion or significant stenosis. Normal triphasic waveform. PSV 64, 99 and 82 cm/sec for the proximal, mid and distal SFA, respectively. Right popliteal artery: No occlusion or significant stenosis. Normal triphasic waveform. PSV 57 cm/sec. Right calf/foot arteries: No occlusion or significant stenosis in the visualized arteries. Monophasic waveforms. PSV 35 cm/sec for the distal posterior tibial artery. Dorsalis pedis artery is patent. PSV 22 cm/sec. Left common femoral artery: No occlusion or significant stenosis. Monophasic waveform. PSV 81 cm/sec Left superficial femoral artery: No occlusion or significant stenosis. Monophasic waveform. PSV 72, 42 and 93 cm/sec, respectively for the proximal, mid and distal SFA. Left popliteal artery: No occlusion or significant stenosis. Monophasic waveform. PSV 74 cm/sec Left calf/foot arteries: No occlusion or significant stenosis in the visualized arteries. Monophasic waveforms in the visualized THERMITE WELDER. PSV 28 cm/sec. Other findings: Dorsalis pedis artery is patent. PSV 19 cm/sec. US/CV arterial duplex [facility] [id number] IMPRESSION: There is a bilateral decrease in peak systolic velocity and monophasic pulsatility seen in the trifurcation arteries of the legs suggesting diffuse peripheral arterial disease. Follow-up nonemergent CTA of the lower extremities is suggested.
== END 2025-04-30 10:54 | disposition home or self-care (01) ==
LOC: RAD 10:54
PROVIDERS: PCP Family Medicine; Visit Provider Podiatrist Foot & Ankle Surgery
DX: I73.9 Peripheral vascular disease, unspecified (principal)
CPT/HCPCS: 93925

== ENCOUNTER → 2025-05-06 10:34 | Outpatient (BNVA) | payer OTHER, SELFPAY | PROVIDERS: PCP Family Medicine; Visit Provider Podiatrist Foot & Ankle Surgery | DX: L03.116 Cellulitis of left lower limb (principal); M79.672 Pain in left foot; E11.8 Type 2 diabetes mellitus with unspecified complications; B18.2 Chronic viral hepatitis C; K74.60 Unspecified cirrhosis of liver; E11.42 Type 2 diabetes mellitus with diabetic polyneuropathy; I73.9 Peripheral vascular disease, unspecified; E11.621 Type 2 diabetes mellitus with foot ulcer; L97.521 Non-pressure chronic ulcer of other part of left foot limited to breakdown of skin; Z79.4 Long term (current) use of insulin | CPT/HCPCS: 73630; 99214 ==

== ENCOUNTER → 2025-05-19 13:46 | Outpatient (BNVA) | payer OTHER, SELFPAY | PROVIDERS: PCP Family Medicine; Visit Provider Podiatrist Foot & Ankle Surgery | DX: E11.621 Type 2 diabetes mellitus with foot ulcer (principal); L97.521 Non-pressure chronic ulcer of other part of left foot limited to breakdown of skin; E11.42 Type 2 diabetes mellitus with diabetic polyneuropathy; B18.2 Chronic viral hepatitis C; K74.60 Unspecified cirrhosis of liver; I73.9 Peripheral vascular disease, unspecified; L03.116 Cellulitis of left lower limb; Z79.4 Long term (current) use of insulin | CPT/HCPCS: 99213 ==

== ENCOUNTER → 2025-06-11 13:01 | Outpatient (BNVA) | payer OTHER, SELFPAY | PROVIDERS: PCP Family Medicine; Visit Provider Podiatrist Foot & Ankle Surgery | DX: L03.116 Cellulitis of left lower limb (principal); B18.2 Chronic viral hepatitis C; K74.60 Unspecified cirrhosis of liver; E11.42 Type 2 diabetes mellitus with diabetic polyneuropathy; I73.9 Peripheral vascular disease, unspecified; E11.621 Type 2 diabetes mellitus with foot ulcer; L97.521 Non-pressure chronic ulcer of other part of left foot limited to breakdown of skin; Z79.4 Long term (current) use of insulin | CPT/HCPCS: 99213 ==

== ENCOUNTER → 2025-06-25 13:36 | Outpatient (BNVA) | payer OTHER, SELFPAY | PROVIDERS: PCP Family Medicine; Visit Provider Podiatrist Foot & Ankle Surgery | DX: L03.116 Cellulitis of left lower limb (principal); B18.2 Chronic viral hepatitis C; K74.60 Unspecified cirrhosis of liver; E11.42 Type 2 diabetes mellitus with diabetic polyneuropathy; I73.9 Peripheral vascular disease, unspecified; L97.521 Non-pressure chronic ulcer of other part of left foot limited to breakdown of skin; E11.621 Type 2 diabetes mellitus with foot ulcer; Z79.4 Long term (current) use of insulin | CPT/HCPCS: 99213 ==